=== PATIENT | female | born 1955 | race Caucasian/White ===

== ENCOUNTER 2021-07-13 10:32 | Inpatient (IN) | payer MEDICARE, SELFPAY ==
[2021-07-13 10:46] VITALS: BP 152/81; PULSE 101; RESP 18; TEMP 37; O2SAT 99; BMI 26.1
[2021-07-13 10:53] VITALS: TEMP 37.3
--- NOTE | 2021-07-13 10:58 | ED_ITS ---
HPI - Skin/Abscess/Foreign Bdy General Chief complaint: Skin/Abscess/Foreign Body Stated complaint: bug bite Time Seen by Provider: 07/13/21 10:57 Source: patient Mode of arrival: ambulatory Limitations: no limitations History of Present Illness HPI narrative: 66-year-old female presents for a rash in her left inguinal area that started 1 week ago. The she 1st noticed a bite in her left inguinal area after gardening 1 week ago. She did not see any attached ticks. The swelling and pain in her groin has become worse, and she had fevers last night up to 102F. Patient was prescribed doxycycline, which she started yesterday, she has had 3 doses, but she is vomiting up the antibiotics. She is nauseous. Patient was on doxycycline, because of questions for tick bite. Lyme labs pending. Denies other rashes, joint pain, joint swelling MD complaint: rash Onset (ago): week(s) (1) Tetanus up to date: unsure Severity scale (1-10): 4 Associated symptoms: fever, nausea, vomiting and malaise Related Data Home Medications Medication Instructions Recorded Confirmed lisinopril 20 1 tab PO DAILY 07/13/21 07/13/21 mg-hydrochlorothiazide 12.5 mg tablet Allergies Allergy/AdvReac Type Severity Reaction Status Date / Time No Known Allergies Allergy Unverified 08/16/20 19:03 [No Known Allergies*] Review of Systems Constitutional: Constitutional: Denies body ache(s), Denies chills, Reports fatigue, Reports fever(s), Denies headache(s), Reports malaise and Denies weakness Eyes: Eyes: Denies blurry vision and Denies diplopia ENT: Denies vertigo, Denies dizziness, Denies otalgia, Denies headache(s), Denies mouth pain, Denies post nasal drip, Denies sinus pain, Denies sinus pressure, Denies sore throat and Denies throat swelling Cardiovascular: Cardiovascular: Denies chest pain, Denies syncope, Denies leg edema, Denies lightheadedness, Denies Loss of Consciousness, Denies palpitations and Denies dyspnea Respiratory: Respiratory: Denies chest congestion, Denies cough and Denies dy spnea Gastrointestinal: Gastrointestinal: Denies abdominal pain, Denies hematochezia, Denies constipation, Denies diarrhea and Denies vomiting Genitourinary: Genitourinary: Reports no additional female genitourinary complaints Musculoskeletal: Musculoskeletal: Denies back pain, Denies myalgias, Denies arthralgias, Denies joint swelling, Denies muscle weakness, Denies numbness and Denies tingling Integumentary/Breasts: Skin/Breast: Reports erythema, Reports rash, Reports skin pain and Reports skin swelling Neurologic: Denies confusion, Denies vertigo, Denies dizziness, Denies syncope, Denies headache(s), Denies numbness, Denies tingling and Denies weakness Psychiatric: Psychiatric: Denies anxiety, Denies confusion and Denies depression Endocrine: Endocrine: Reports fatigue and Denies palpitations Allergic/Immunologic: Allergic/Immunologic: Denies throat swelling PMFSH Past Medical History Medical History HTN (hypertension) Social History Social History Advance Directives: No Advance Directives Information Provided: Yes Physical Exam Vital Signs: Vital Signs: Last Vital Signs Temp 98.3 F 07/13/21 12:55 Pulse 97 07/13/21 14:00 Resp 16 07/13/21 12:55 BP 137/69 07/13/21 14:00 Pulse Ox 99 07/13/21 12:55 Body Mass Index 26.1 Const: General: no acute distress, well developed, alert and awake; No confusion Nutritional Appearance: well nourished Orientation/consciousness: patient oriented x3 and No confusion Limitations: no limitations HENMT: Head: Yes normal to inspection, Yes normocephalic and Yes atraumatic Ears: hearing grossly normal bilaterally General nose exam: Normal external nose present Face and sinus: Yes normal facial exam Mouth: Normal oral and palatal mucosa present Throat: Yes posterior oropharynx normal Eyes: Conjunctivae: conjunctivae normal Pupils: Equal, round and reactive pupils present EOM: EOMs intact bilaterally Neck: Neck: Yes full ROM, Yes no lymphadenopathy and Yes supple Resp: Effort & Inspection: normal respiratory effort and able to speak in complete sentences Auscultation: clear to auscultation bilaterally, no crackles, no rales, no rhonchi and no wheezes Cardio: Rate: regular rate Rhythm: regular rhythm Heart sounds: S1 normal heart sound present and S2 normal heart sound present GI: Inspection: Yes normal to inspection Palpation (GI): Soft to palpation, nontender, no guarding and not rigid Percussion: Yes normal to percussion Auscultation: normal bowel sounds Skin: Other: Redness swelling and warmth in oval shaped left inguinal crease. The center of which is indurated, with a circular purple area with induration and blistering in the center. Rashes: rashes noted (left inguinal area) Neuro: General: patient oriented x3 and No confusion Cranial nerves: Yes Equal, round and reactive pupils present Extrem: General: Yes normal to inspection and Yes full ROM Psych: Appearance: grossly normal Affect: normal affect Attitude: cooperative Thought process: Normal thought process present Course Course Course Narrative: 66-year-old female with 1 week of worsening rash now has fevers, and cannot tolerate oral antibiotics. On exam, patient has temperature of 99.2? F, she has redness swelling and warmth in oval shaped left inguinal crease, the center of which is indurated, with a circular purple area with induration and blistering in the center. Patient was on doxycycline due to question of tick bite, Lyme labs are pending. Getting labs, closed cultures, lactate, IV fluids. Gave Rocephin and Zofran. Anticipate admission. Lactate 1.0, and no leukocytosis, patient mildly hyponatremic at a sodium of 30. Discussed with hospitalist who will admit MDM - Skin/Abscess/Foreign Bdy Lab Data Result diagrams: 07/13/21 11:55 07/13/21 11:55 Labs: Lab Results 07/13/21 07/13/21 07/13/21 Range/Units 11:54 11:55 11:55 WBC 7.3 (4.8-10.8) X10*3/uL RBC 4.89 (4.20-5.50) X10*6/uL Hgb 14.3 (12.0-16.0) g/dl Hct 42.6 (37-47) % MCV 87.1 (80-98) fL MCH 29.2 (27.0-33.0) pg MCHC 33.6 (31.0-35.0) g/dl RDW 12.2 (11.0-16.0) % Plt Count 197 (160-400) X10*3/uL MPV 10.5 (9.4-12.3) fL Immature Gran % (Auto) 0.4 (0.0-0.4) % Neut % (Auto) 85.1 H (45-73) % Lymph % (Auto) 7.5 L (20-40) % [place] % (Auto) 6.5 (2-11) % Eos % (Auto) 0.0 (0-4) % Baso % (Auto) 0.5 (0-2) % Lymph # (Auto) 0.6 L (1.2-4.9) X10*3/uL [place] # (Auto) 0.5 (0.1-1.2) X10*3/uL Eos # (Auto) 0.0 (0.0-0.4) X10*3/uL Baso # (Auto) 0.0 (0.0-0.2) X10*3/uL Abs Immat Gran (auto) 0.03 (0.00-0.03) X10*3/uL Absolute Neuts (auto) 6.2 (2.0-8.3) X10*3/uL Absolute Nucleated RBC 0.000 (0.0-0.012) X10*3/uL Nucleated RBC % (auto) 0.0 (0.0-0.2) /100WBC Sodium 130 L (135-145) mmol/L Potassium 3.6 (3.3-5.1) mmol/L Chloride 95 L (96-108) mmol/L Carbon Dioxide 25 (22-29) mmol/L Anion Gap 14 (12-20) BUN 9 (9-16) mg/dL Creatinine 0.92 (0.5-1.4) mg/dL Estim Creat Clear Calc 61.6 Estimated GFR > 60 Random Glucose 96 (60-115) mg/dL Lactic Acid (0.5-2.0) mmol/L Calcium 8.7 (8.4-10.2) mg/dL Magnesium 1.7 (1.6-2.6) mg/dL Total Bilirubin 0.4 (0.0-1.0) mg/dL AST 34 H (5-31) U/L ALT 36 H (0-31) U/L Alkaline Phosphatase 71 (39-117) U/L Total Protein 6.3 L (6.5-8.0) g/dL Albumin 3.9 (3.5-5.0) g/dL COVID-19 (SHRADDHA) Negative (Negative) COVID-19 Clin Com See Note 07/13/21 Range/Units 11:55 WBC (4.8-10.8) X10*3/uL RBC (4.20-5.50) X10*6/uL Hgb (12.0-16.0) g/dl Hct (37-47) % MCV (80-98) fL MCH (27.0-33.0) pg MCHC (31.0-35.0) g/dl RDW (11.0-16.0) % Plt Count (160-400) X10*3/uL MPV (9.4-12.3) fL Immature Gran % (Auto) (0.0-0.4) % Neut % (Auto) (45-73) % Lymph % (Auto) (20-40) % [place] % (Auto) (2-11) % Eos % (Auto) (0-4) % Baso % (Auto) (0-2) % Lymph # (Auto) (1.2-4.9) X10*3/uL [place] # (Auto) (0.1-1.2) X10*3/uL Eos # (Auto) (0.0-0.4) X10*3/uL Baso # (Auto) (0.0-0.2) X10*3/uL Abs Immat Gran (auto) (0.00-0.03) X10*3/uL Absolute Neuts (auto) (2.0-8.3) X10*3/uL Absolute Nucleated RBC (0.0-0.012) X10*3/uL Nucleated RBC % (auto) (0.0-0.2) /100WBC Sodium (135-145) mmol/L Potassium (3.3-5.1) mmol/L Chloride (96-108) mmol/L Carbon Dioxide (22-29) mmol/L Anion Gap (12-20) BUN (9-16) mg/dL Creatinine (0.5-1.4) mg/dL Estim Creat Clear Calc Estimated GFR Random Glucose (60-115) mg/dL Lactic Acid 1.0 (0.5-2.0) mmol/L Calcium (8.4-10.2) mg/dL Magnesium (1.6-2.6) mg/dL Total Bilirubin (0.0-1.0) mg/dL AST (5-31) U/L ALT (0-31) U/L Alkaline Phosphatase (39-117) U/L Total Protein (6.5-8.0) g/dL Albumin (3.5-5.0) g/dL COVID-19 (SHRADDHA) (Negative) COVID-19 Clin Com Discharge Plan Discharge Clinical Impression: Cellulitis Qualifiers: Site of cellulitis: other site Qualified Code(s): L03.818 - Cellulitis of other sites Patient Disposition: Admitted As Inpatient
[2021-07-13] MEDS: ondansetron HCL 4 MG/2 ML VIAL IVPUSH (11:36)
[2021-07-13 12:00] LABS: MANUAL DIFF FLAG NO
[2021-07-13 12:02] LABS: Basophils Percent Auto 0.5 % (0-2); Hematocrit 42.6 % (37-47); Hemoglobin 14.3 g/dl (12.0-16.0); Imm Gran Abs Auto 0.03 X10*3/uL (0.00-0.03); Imm Gran Pct Auto 0.4 % (0.0-0.4); Lymphocytes Absolute Auto 0.6 X10*3/uL (1.2-4.9); Lymphocytes Percent Auto 7.5 % (20-40); Mean Corpuscular HGB Conc 33.6 g/dl (31.0-35.0); Mean Corpuscular Hemoglobin 29.2 pg (27.0-33.0); Mean Corpuscular Volume 87.1 fL (80-98); Mean Platelet Volume 10.5 fL (9.4-12.3); Monocytes Absolute Auto 0.5 X10*3/uL (0.1-1.2); Monocytes Percent Auto 6.5 % (2-11); Neutrophils Absolute Auto 6.2 X10*3/uL (2.0-8.3); Neutrophils Percent Auto 85.1 % (45-73); Platelet Count 197 X10*3/uL (160-400); Red Blood Count 4.89 X10*6/uL (4.20-5.50); Red Cell Distribution Width 12.2 % (11.0-16.0); White Blood Count 7.3 X10*3/uL (4.8-10.8)
[2021-07-13] MEDS: cefTRIAXone sodium 1 GM in 0.9 % Sodium Chloride 50 ML IV (12:03)
[2021-07-13 12:16] LABS: COVID-19 Test Negative (Negative); IDNOW Serial# 9DD0AD1C
[2021-07-13 12:24] LABS: Alanine Aminotransferase 36 U/L (0-31); Albumin Level 3.9 g/dL (3.5-5.0); Alkaline Phosphatase 71 U/L (39-117); Anion Gap 14 (12-20); Aspartate Amino Transferase 34 U/L (5-31); Bilirubin Total 0.4 mg/dL (0.0-1.0); Blood Urea Nitrogen 9 mg/dL (9-16); Calcium 8.7 mg/dL (8.4-10.2); Carbon Dioxide 25 mmol/L (22-29); Chloride 95 mmol/L (96-108); Creatinine Clr Calc Pharmacy 61.6; Estimated Glomerular Filt Rate > 60; Glucose Random 96 mg/dL (60-115); Magnesium 1.7 mg/dL (1.6-2.6); Potassium 3.6 mmol/L (3.3-5.1); Sodium 130 mmol/L (135-145); Total Protein 6.3 g/dL (6.5-8.0)
[2021-07-13 12:55] VITALS: BP 172/86; PULSE 101; RESP 16; TEMP 36.8; O2SAT 99
--- NOTE | 2021-07-13 13:45 | P.HPHOSP_ITS ---
History of Present Illness Date of Service: 07/13/21 Chief Complaint: Cellulitis, failed outpatient antibiotics A 66 years old lady with PMH of hypertension home noticed skin rash in her inguinal area few days ago and started oral antibiotic resulting in vomiting and worsening of the cellulitis. The patient reports having multiple tick bites more than 1 week ago after gardening it became only worsen her groin area and she went to see her primary care who prescribed her doxycycline. She tolerated the 1st 2 doses but after the 3rd when she started vomiting as the cellulitis area expanded. She reporting fever of 102 with chills. Denies any change in her bowel habit, shortness of breath, or urinary symptoms. Admitted for further evaluation and treatment. Review of Systems Review of Systems: Reporting fever and chills with increased weakness No chest pain, palpitation No shortness of breath or coughing No abdominal pain, nausea or vomiting No urinary symptoms Inguinal rash PMFSH Medical History HTN (hypertension) Social History Advance Directives: No Advance Directives Information Provided: Yes Meds Allergies Allergy/AdvReac Type Severity Reaction Status Date / Time No Known Allergies Allergy Unverified 08/16/20 19:03 [No Known Allergies*] Active Medications: Current Medications Generic Name Dose Route Start Last Admin Trade Name Freq PRN Reason Stop Dose Admin Acetaminophen 650 mg 07/13/21 13:40 Acetaminophen 325 Mg Tablet PO Q6H PRN Pain, Mild (Pain Scale 1-3) Doxycycline Hyclate 100 mg/ 250 mls @ 166.67 mls/hr 07/13/21 22:00 Sodium Chloride IV Q12H [facility] Doxycycline Hyclate 100 mg/ 250 mls @ 166.67 mls/hr 07/13/21 13:44 Sodium Chloride IV 07/13/21 15:13 ONCE ONE Lisinopril 20 mg 07/13/21 13:40 Lisinopril 20 Mg Tablet PO DAILY [facility] Protocol Ondansetron HCl 4 mg 07/13/21 13:40 Ondansetron Hcl 4 Mg/2 Ml Vial IVPUSH Q8H PRN Nausea and Vomiting Pharmacy Consult 1 each 07/13/21 13:10 Consult Rx Perform Med Rec MISCELLANE ONCE PRN Consult order Rivaroxaban 10 mg 07/14/21 09:00 Rivaroxaban 10 Mg Tablet PO DAILY [facility] Sodium Chloride 3 ml 07/13/21 16:00 0.9 % Sodium Chloride Flush 3 Ml Syringe IVFLUSH QSHIFT [facility] Home Medications Medication Instructions Recorded Confirmed Last Taken Type lisinopril 20 1 tab PO DAILY 07/13/21 07/13/21 07/12/21 History mg-hydrochlorothiazide 12.5 mg tablet Physical Exam Vital Signs and Narrative: Vital Signs: Last Vital Signs Temp 98.3 F 07/13/21 12:55 Pulse 101 H 07/13/21 12:55 Resp 16 07/13/21 12:55 BP 172/86 H 07/13/21 12:55 Pulse Ox 99 07/13/21 12:55 Body Mass Index 26.1 Const: Other: Constitutional : Alert, oriented, not in distress Neck : Normal inspection, Supple Cardiovascular : RRR, S1 S2, no lower extremity edema Respiratory : Good bilateral air entry, no crackles, wheezes or rhonchi Gastrointestinal: soft, lax, Normal bowel sounds, Non tender Skin : Warm, Dry, left inguinal rash with mild tenderness, line drawn around the area Neurological : Alert & oriented x3, No focal deficit Results Labs CBC and Chem 7: 07/13/21 11:55 07/13/21 11:55 Labs: Laboratory Results - last 24 hr 07/13/21 07/13/21 07/13/21 11:54 11:55 11:55 MCV 87.1 MCH 29.2 MCHC 33.6 RDW 12.2 Plt Count 197 MPV 10.5 Immature Gran % (Auto) 0.4 Neut % (Auto) 85.1 H Lymph % (Auto) 7.5 L [place] % (Auto) 6.5 Eos % (Auto) 0.0 Baso % (Auto) 0.5 Lymph # (Auto) 0.6 L [place] # (Auto) 0.5 Eos # (Auto) 0.0 Baso # (Auto) 0.0 Abs Immat Gran (auto) 0.03 Absolute Neuts (auto) 6.2 Absolute Nucleated RBC 0.000 Nucleated RBC % (auto) 0.0 Anion Gap 14 Estim Creat Clear Calc 61.6 Estimated GFR > 60 Random Glucose 96 Lactic Acid Calcium 8.7 Magnesium 1.7 Total Bilirubin 0.4 AST 34 H ALT 36 H Alkaline Phosphatase 71 Total Protein 6.3 L Albumin 3.9 COVID-19 (SHRADDHA) Negative COVID-19 Clin Com See Note 07/13/21 11:55 MCV MCH MCHC RDW Plt Count MPV Immature Gran % (Auto) Neut % (Auto) Lymph % (Auto) [place] % (Auto) Eos % (Auto) Baso % (Auto) Lymph # (Auto) [place] # (Auto) Eos # (Auto) Baso # (Auto) Abs Immat Gran (auto) Absolute Neuts (auto) Absolute Nucleated RBC Nucleated RBC % (auto) Anion Gap Estim Creat Clear Calc Estimated GFR Random Glucose Lactic Acid 1.0 Calcium Magnesium Total Bilirubin AST ALT Alkaline Phosphatase Total Protein Albumin COVID-19 (SHRADDHA) COVID-19 Clin Com Assessment and Plan (1) Cellulitis: Qualifiers: Site of cellulitis: other site Qualified Code(s): L03.818 - Cellulitis of other sites Status: Acute (2) Nausea and vomiting: Status: Acute A 66 years old lady with PMH of hypertension home noticed skin rash in her inguinal area few days ago and started oral antibiotic resulting in vomiting and worsening of the cellulitis. Cellulitis Could not tolerate oral antibiotics as outpatient Cellulitis area marked Cultures sent Lyme disease antibodies sent Start IV doxycycline To get ID evaluation Nausea and vomiting Secondary to oral antibiotics Zofran as needed Hypertension Continue HCT continue lisinopril DVT PPX Xarelto Quality Stroke Does the patient have a stroke diagnosis?: No VTE Prior VTE?: No VTE Risk Level:: Medical - moderate - high VTE Device Contraindication: Treatment Not Indicated VTE Drug Contraindication: N/A - Med Ordered
[2021-07-13 14:00] VITALS: BP 137/69; PULSE 97
[2021-07-13] MEDS: Doxycycline Hyclate 100 MG in 0.9 % Sodium Chloride 250 ML 166.67 MG IV ×2 (14:01→21:31)
[2021-07-13] MEDS: lisinopriL 20 MG TABLET PO (14:02)
[2021-07-13] MEDS: Acetaminophen 325 MG TABLET 650 MG PO ×2 (14:07→23:06)
--- NOTE | 2021-07-13 14:40 | W.PM.IDCN ---
History of Present Illness Data of Consult Service Date: 07/13/21 Requesting physician: Gera Joseph Primary Care Provider: Italo Doe MD HPI Reason for consult: rash,vomiting She presents to hospital with left hip redness and rash She was weeding her husbands garden last week. She felt left area near hip reddened and not itchy. The area did hurt however. She noticed nausea for two days and saw PCP at [facility] yesterday She was given Doxycycline po and took two doses and had nausea and vomiting and couldnt keep anything down and came to ER here Review of Systems Review of Systems: Yes all other systems are reviewed and are negative ON LICENSE OF [facility] Past Medical History Medical History HTN (hypertension) Social History Social History Household Members: Spouse Housing: House Do you presently have visiting nurse or other home services: No Patient Tobacco Use Status: Never used Tobacco e-Cigarette/Vaping Use: Never Used Use of substances other than those prescribed or required for medical reasons: No Currently Displaying Signs/Symptoms of Drug Intoxication Withdrawal: No Have you been hit, kicked, punched, or otherwise hurt by someone within the past year? If so, by whom?: No Do you feel safe in your current relationship?: Yes Is there a partner from a previous relationship who is making you feel unsafe now?: No Are you made to feel afraid or neglected: No Advance Directives: No Advance Directives Information Provided: Yes Do you have thoughts of harming others: None Do you have a plan to hurt others: No Plan Recently lost weight without trying: No How much weight loss: Not applicable Eating poorly because of decreased appetite: No Nutrition screen score: 0 Nutrition Risks: No Nutritional Risk Patient : No : No Poor oral hygiene: No service: No Current occupational status: employed Meds Allergies Allergy/AdvReac Type Severity Reaction Status Date / Time No Known Allergies Allergy Unverified 08/16/20 19:03 [No Known Allergies*] Active Medications: Current Medications Generic Name Dose Route Start Last Admin Trade Name Freq PRN Reason Stop Dose Admin Acetaminophen 650 mg 07/13/21 13:40 07/13/21 14:07 Acetaminophen 325 Mg Tablet PO 650 mg Q6H PRN Administration Pain, Mild (Pain Scale 1-3) Doxycycline Hyclate 100 mg/ 250 mls @ 166.67 mls/hr 07/13/21 22:00 Sodium Chloride IV Q12H [facility] Doxycycline Hyclate 100 mg/ 250 mls @ 166.67 mls/hr 07/13/21 13:44 07/13/21 14:01 Sodium Chloride IV 07/13/21 15:13 166.67 mls/hr ONCE ONE Administration Lisinopril 20 mg 07/13/21 13:40 07/13/21 14:02 Lisinopril 20 Mg Tablet PO 20 mg DAILY [facility] Administration Protocol Ondansetron HCl 4 mg 07/13/21 13:40 Ondansetron Hcl 4 Mg/2 Ml Vial IVPUSH Q8H PRN Nausea and Vomiting Pharmacy Consult 1 each 07/13/21 13:10 Consult Rx Perform Med Rec MISCELLANE ONCE PRN Consult order Rivaroxaban 10 mg 07/14/21 09:00 Rivaroxaban 10 Mg Tablet PO DAILY [facility] Sodium Chloride 3 ml 07/13/21 16:00 0.9 % Sodium Chloride Flush 3 Ml Syringe IVFLUSH QSHIFT [facility] Home Medications Medication Instructions Recorded Confirmed Last Taken Type lisinopril 20 1 tab PO DAILY 07/13/21 07/13/21 07/12/21 History mg-hydrochlorothiazide 12.5 mg tablet Physical Exam Vital Signs: Vital Signs: Last Vital Signs Temp 98.3 F 07/13/21 12:55 Pulse 97 07/13/21 14:00 Resp 16 07/13/21 12:55 BP 137/69 07/13/21 14:00 Pulse Ox 99 07/13/21 12:55 Body Mass Index 26.1 Const: General: cooperative Orientation/consciousness: patient oriented x3 HENMT: Head: Yes normal to inspection Mouth: Normal oral and palatal mucosa present Eyes: General: appearance normal, both eyes and all related structures Resp: Effort & Inspection: normal respiratory effort Cardio: Rate: regular rate Rhythm: regular rhythm GI: Palpation (GI): Soft to palpation and nontender Skin: Other: left groin area 8 x 10 cm erythema with central blistering Neuro: General: patient oriented x3 Results Labs CBC & Chem 7: 07/14/21 05:54 07/15/21 06:10 Labs: Short CBC 07/13/21 Range/Units 11:55 WBC 7.3 (4.8-10.8) X10*3/uL Hgb 14.3 (12.0-16.0) g/dl Hct 42.6 (37-47) % Plt Count 197 (160-400) X10*3/uL BMP 07/13/21 11:55 Sodium 130 L Potassium 3.6 Chloride 95 L Carbon Dioxide 25 BUN 9 Creatinine 0.92 Calcium 8.7 Liver Function 07/13/21 Range/Units 11:55 Total Bilirubin 0.4 (0.0-1.0) mg/dL AST 34 H (5-31) U/L ALT 36 H (0-31) U/L Alkaline Phosphatase 71 (39-117) U/L Albumin 3.9 (3.5-5.0) g/dL Assessment and Plan (1) Cellulitis: Qualifiers: Site of cellulitis: other site Qualified Code(s): L03.818 - Cellulitis of other sites Status: Resolved This appears to be Lyme disease rash Less likely is early shingles She has slight hepatitis ,possible anaplasma also There is no anemia so less likely babesiosis (2) Nausea and vomiting: Status: Resolved Would give IV Doxycycline 100 mg IV every 12 hours Continue to hydrate Would check anaplasma,babesia and Lyme serologies although may be early to be positive She will hopefully develop ability to take po as 10 d po Doxycycline will be best Await further development of rash
[2021-07-13 15:49] VITALS: BP 128/77; PULSE 90; RESP 16; TEMP 36.8; O2SAT 97
[2021-07-13] MEDS: 0.9 % Sodium Chloride Flush 3 ML SYRINGE IVFLUSH ×2 (21:32→23:06)
[2021-07-14] VITALS: BP 112/62; PULSE 74; RESP 16; TEMP 36.8; O2SAT 98
[2021-07-14 06:46] LABS: Hematocrit 40.8 % (37-47); Hemoglobin 13.4 g/dl (12.0-16.0); Mean Corpuscular HGB Conc 32.8 g/dl (31.0-35.0); Mean Corpuscular Hemoglobin 28.9 pg (27.0-33.0); Mean Corpuscular Volume 87.9 fL (80-98); Mean Platelet Volume 11.5 fL (9.4-12.3); Platelet Count 204 X10*3/uL (160-400); Red Blood Count 4.64 X10*6/uL (4.20-5.50); Red Cell Distribution Width 12.5 % (11.0-16.0); White Blood Count 5.5 X10*3/uL (4.8-10.8)
[2021-07-14 06:49] LABS: Anion Gap 12 (12-20); Blood Urea Nitrogen 7 mg/dL (9-16); Calcium 8.5 mg/dL (8.4-10.2); Carbon Dioxide 22 mmol/L (22-29); Chloride 108 mmol/L (96-108); Creatinine Clr Calc Pharmacy 71.8; Estimated Glomerular Filt Rate > 60; Glucose Random 102 mg/dL (60-115); Sodium 138 mmol/L (135-145)
[2021-07-14 07:11] VITALS: BP 127/75; PULSE 72; RESP 20; TEMP 36.2; O2SAT 99
[2021-07-14 08:18] VITALS: BP 127/75; PULSE 72
[2021-07-14] MEDS: lisinopriL 20 MG TABLET PO (08:18)
[2021-07-14] MEDS: 0.9 % Sodium Chloride Flush 3 ML SYRINGE IVFLUSH ×3 (08:19→21:05)
[2021-07-14] MEDS: Rivaroxaban 10 MG TABLET PO (08:19)
[2021-07-14] MEDS: Doxycycline Hyclate 100 MG in 0.9 % Sodium Chloride 250 ML 166.67 MG IV (09:35)
--- NOTE | 2021-07-14 11:57 | P.PNIM_ITS ---
Subjective Subjective Date of Service: 07/14/21 Interval History: the patient was seen and evaluated this morning Laying in bed, feels comfortable Erythema decreasing along with the pain but start to produce clear liquids Denies any fever, chills or shortness of breath No reported other overnight events. Review of Systems No overnight fever and chills Feels little stronger No chest pain, palpitation No shortness of breath or coughing No abdominal pain, nausea or vomiting No urinary symptoms Inguinal rash improving Physical Exam Vital Signs: Vital Signs: Last Vital Signs Temp 97.1 F 07/14/21 07:11 Pulse 72 07/14/21 08:18 Resp 20 07/14/21 07:11 BP 127/75 07/14/21 08:18 Pulse Ox 99 07/14/21 07:11 Body Mass Index 26.1 Const: Other: Constitutional : Alert, oriented, not in distress Neck : Normal inspection, Supple Cardiovascular : RRR, S1 S2, no lower extremity edema Respiratory : Good bilateral air entry, no crackles, wheezes or rhonchi Gastrointestinal: soft, lax, Normal bowel sounds, Non tender Skin : Warm, Dry, left inguinal rash less erythema within line drawn around the area, less tenderness Neurological : Alert & oriented x3, No focal deficit Objective Data Current Medications Generic Name Dose Route Start Last Admin Trade Name Freq PRN Reason Stop Dose Admin Acetaminophen 650 mg 07/13/21 13:40 07/13/21 23:06 Acetaminophen 325 Mg Tablet PO 650 mg Q6H PRN Administration Pain, Mild (Pain Scale 1-3) Doxycycline Hyclate 100 mg/ 250 mls @ 166.67 mls/hr 07/13/21 22:00 07/14/21 11:11 Sodium Chloride IV Infused Q12H [facility] Infusion Lisinopril 20 mg 07/13/21 13:40 07/14/21 08:18 Lisinopril 20 Mg Tablet PO 20 mg DAILY [facility] Administration Protocol Ondansetron HCl 4 mg 07/13/21 13:40 Ondansetron Hcl 4 Mg/2 Ml Vial IVPUSH Q8H PRN Nausea and Vomiting Pharmacy Consult 1 each 07/13/21 13:10 Consult Rx Perform Med Rec MISCELLANE ONCE PRN Consult order Rivaroxaban 10 mg 07/14/21 09:00 07/14/21 08:19 Rivaroxaban 10 Mg Tablet PO 10 mg DAILY [facility] Administration Sodium Chloride 3 ml 07/13/21 16:00 07/14/21 08:19 0.9 % Sodium Chloride Flush 3 Ml Syringe IVFLUSH 3 ml QSHIFT [facility] Administration Labs CBC & Chem 7: 07/14/21 05:54 07/14/21 05:54 Labs: Laboratory Results - last 24 hr 07/13/21 07/13/21 07/13/21 11:54 11:55 11:55 MCV 87.1 MCH 29.2 MCHC 33.6 RDW 12.2 Plt Count 197 MPV 10.5 Immature Gran % (Auto) 0.4 Neut % (Auto) 85.1 H Lymph % (Auto) 7.5 L [place] % (Auto) 6.5 Eos % (Auto) 0.0 Baso % (Auto) 0.5 Lymph # (Auto) 0.6 L [place] # (Auto) 0.5 Eos # (Auto) 0.0 Baso # (Auto) 0.0 Abs Immat Gran (auto) 0.03 Absolute Neuts (auto) 6.2 Absolute Nucleated RBC 0.000 Nucleated RBC % (auto) 0.0 Anion Gap 14 Estim Creat Clear Calc 61.6 Estimated GFR > 60 Random Glucose 96 Lactic Acid Calcium 8.7 Magnesium 1.7 Total Bilirubin 0.4 AST 34 H ALT 36 H Alkaline Phosphatase 71 Total Protein 6.3 L Albumin 3.9 COVID-19 (SHRADDHA) Negative COVID-19 Clin Com See Note 07/13/21 07/14/21 07/14/21 11:55 05:54 05:54 MCV 87.9 MCH 28.9 MCHC 32.8 RDW 12.5 Plt Count 204 MPV 11.5 Immature Gran % (Auto) Neut % (Auto) Lymph % (Auto) [place] % (Auto) Eos % (Auto) Baso % (Auto) Lymph # (Auto) [place] # (Auto) Eos # (Auto) Baso # (Auto) Abs Immat Gran (auto) Absolute Neuts (auto) Absolute Nucleated RBC 0.000 Nucleated RBC % (auto) 0.0 Anion Gap 12 Estim Creat Clear Calc 71.8 Estimated GFR > 60 Random Glucose 102 Lactic Acid 1.0 Calcium 8.5 Magnesium Total Bilirubin AST ALT Alkaline Phosphatase Total Protein Albumin COVID-19 (SHRADDHA) COVID-19 Clin Com Assessment and Plan (1) Nausea and vomiting: Status: Acute (2) Cellulitis: Status: Acute Assessment and Plan: A 66 years old lady with PMH of hypertension home noticed skin rash in her inguinal area few days ago and started oral antibiotic resulting in vomiting and worsening of the cellulitis. Cellulitis Could not tolerate oral antibiotics as outpatient Cellulitis area marked and improving Cultures pending Lyme disease antibodies pending among others Continue IV doxycycline for today, to start p.o. tomorrow and monitor her Appreciate ID evaluation Nausea and vomiting Secondary to oral antibiotics Zofran as needed Hypertension Continue HCT continue lisinopril DVT PPX Xarelto Quality Stroke Does the patient have a stroke diagnosis?: No VTE Prior VTE?: No VTE Risk Level:: Medical - moderate - high VTE Device Contraindication: Treatment Not Indicated VTE Drug Contraindication: N/A - Med Ordered
[2021-07-14 15:10] VITALS: BP 141/84; PULSE 84; RESP 17; TEMP 36.4; O2SAT 92
--- NOTE | 2021-07-14 15:13 | MHC.CM.PN ---
CM MET WITH PT WHO REPORTS SHE LIVES WITH HER HOWEVER HE IS CURRENTLY IN [place]. 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 PT REPORTS SHE WAS SEEING DR HESTER AT [facility] BUT WAS IN THE PROCESS OF CHANGING TO ONE OF THE PA'S THERE. PT COMPLETED A HCP TODAY NAMING HER , WISAM ([phone]) AND HER DAUGHTER IN LAW, VELASQUEZ ([phone]), HER PRIMARY AND ALTERNATE AGENTS RESPECTIVELY. IMM DELIVERED CURRENT DC PLAN IS HOME WITH NO SERVICES. PT WILL SELF ARRANGE TRANSPORT
[2021-07-14] MEDS: Doxycycline Hyclate 100 MG in 0.9 % Sodium Chloride 250 ML 166 MG IV (20:59)
[2021-07-14] MEDS: Acetaminophen 325 MG TABLET 650 MG PO (21:06)
[2021-07-14 23:14] VITALS: BP 120/66; PULSE 75; RESP 18; TEMP 35.7; O2SAT 98
[2021-07-15 06:52] LABS: Anion Gap 14 (12-20); Blood Urea Nitrogen 12 mg/dL (9-16); Calcium 8.6 mg/dL (8.4-10.2); Carbon Dioxide 23 mmol/L (22-29); Chloride 105 mmol/L (96-108); Creatinine Clr Calc Pharmacy 67.5; Estimated Glomerular Filt Rate > 60; Glucose Random 151 mg/dL (60-115); Potassium 3.8 mmol/L (3.3-5.1); Sodium 138 mmol/L (135-145)
[2021-07-15 08:00] VITALS: BP 153/90; PULSE 78; RESP 17; TEMP 36.1; O2SAT 100
[2021-07-15] MEDS: lisinopriL 20 MG TABLET PO (08:21)
[2021-07-15] MEDS: Rivaroxaban 10 MG TABLET PO (08:21)
[2021-07-15] MEDS: 0.9 % Sodium Chloride Flush 3 ML SYRINGE IVFLUSH (08:23)
--- NOTE | 2021-07-15 11:26 | PM.DS ---
DS: Providers Provider Date of Service: 07/15/21 Date of admission: 07/13/21 13:40 Primary care physician: Italo Doe MD Consults: 07/13/21 13:51 Consult to Infectious Diseases Routine Consulting Provider: Ade Cuenca Reason for consultation: Cellulitis, possible Lyme disease DS: Diagnosis Discharge Diagnosis (1) Nausea and vomiting: Status: Acute (2) Cellulitis: Status: Acute DS: Medications Discharge Medications Home Medications: Home Medications Medication Instructions Recorded Confirmed lisinopril 20 1 tab PO DAILY 07/13/21 07/13/21 mg-hydrochlorothiazide 12.5 mg tablet Previous Rx's Medication Instructions Recorded doxycycline monohydrate 100 mg 100 mg PO BID #23 cap 07/15/21 capsule ondansetron 4 mg disintegrating 4 mg PO Q8H PRN #20 tab 07/15/21 tablet DS: Summary Hospital Course Hospital Course: Admission note HPI A 66 years old lady with PMH of hypertension home noticed skin rash in her inguinal area few days ago and started oral antibiotic resulting in vomiting and worsening of the cellulitis. The patient reports having multiple tick bites more than 1 week ago after gardening it became only worsen her groin area and she went to see her primary care who prescribed her doxycycline.? She tolerated the 1st 2 doses but after the 3rd when she started vomiting as the cellulitis area expanded.? She reporting fever of 102 with chills.? Denies any change in her bowel habit, shortness of breath, or urinary symptoms. Admitted for further evaluation and treatment. Hospital course The patient was admitted to the hospital for reported nausea and vomiting after starting antibiotic for skin rash. Rash was evaluated suspicious for take borne disease and the patient was admitted to the hospital for intractable nausea and vomiting. Treated with IV doxycycline with good response as the rash and erythema decreased significantly. Evaluated by infectious disease who send serologies for most common tick bite diseases. Patient to be discharged home on oral doxycycline and to follow-up with PCP. To finish total of 14 days of doxycycline. Time Spent with Patient Time attestation: Total time spent providing and/or coordinating discharge services: Discharge coordination time: Greater than 30 minutes Quality: Stroke Does the patient have a stroke diagnosis?: No Physical Exam Vital Signs: Vital Signs: Last Vital Signs Temp 97.0 F 07/15/21 08:00 Pulse 78 07/15/21 08:00 Resp 17 07/15/21 08:00 BP 153/90 H 07/15/21 08:00 Pulse Ox 100 07/15/21 08:00 Body Mass Index 26.1 Const: Other: Constitutional : Alert, oriented, not in distress Neck : Normal inspection, Supple Cardiovascular : RRR, S1 S2, no lower extremity edema Respiratory : Good bilateral air entry, no crackles, wheezes or rhonchi Gastrointestinal: soft, lax, Normal bowel sounds, Non tender Skin : Warm, Dry, left inguinal rash less erythema within line drawn around the area, no more tenderness Neurological : Alert & oriented x3, No focal deficit DS: Data Data Completed and Pending Labs on day of discharge: Laboratory Results - last 24 hr 07/15/21 06:10 Sodium 138 Potassium 3.8 Chloride 105 Carbon Dioxide 23 Anion Gap 14 BUN 12 D Creatinine 0.84 Estim Creat Clear Calc 67.5 Estimated GFR > 60 Random Glucose 151 H D Calcium 8.6 Preliminary micro results at discharge 07/13/21 11:55 Blood Culture - Preliminary Blood - Venous No growth after 24 hours. Discharge Plan Discharge Patient Disposition: Home, Self-Care Discharge Diagnosis: Cellulitis Referrals: Italo Doe MD [Primary Care Provider] - 1 Week Discharge Medications: New doxycycline monohydrate 100 mg capsule 100 mg PO BID Qty: 23 RF: 0 ondansetron 4 mg tablet,disintegrating 4 mg PO Q8H PRN (Reason: nausea and vomiting) Qty: 20 RF: 0 Continued lisinopril-hydrochlorothiazide 20-12.5 mg tablet 1 tab PO DAILY RF: 0 Discharge Orders: Discharge Order (Routine); Ordered 07/15/21 Ordered By: Gera Joseph Diet: advance to usual diet Activity on Discharge: As tolerated Stand Alone Forms: Patient Portal Discharge page Care Plan Goals: Read below Health Concerns: Read below Plan of Treatment: you were admitted to the hospital for evaluation of rash. Treated as possible tick bite infection with IV doxycycline as you were evaluated by infectious disease specialist. Assessment: Continue on doxycycline to finish total of 2 weeks of antibiotic Use Zofran as needed for nausea Follow-up with PCP for the serology results of microbes
--- NOTE | 2021-07-15 11:47 | MHC.CM.PN ---
PT DISCHARGING HOME SELF-CARE, PT TO ARRANGE TRANSPORT
[2021-07-15] MEDS: Ondansetron ODT 4 MG TAB.RAPDIS TRANSLINGU (11:49)
--- NOTE | 2021-07-15 13:17 | PC.NURSE ---
Skin/Wound assessment completed today. Patient was bitten by a tick, large cellulitis occurred from that bite. Blister present with blue underneath and red around edges. Patient was on IV antibiotics, she is discharged today with PO antibiotics. No other skin issues noted.
[2021-07-15 17:06] LABS: Lyme Abs Screen <0.90 index
[2021-07-22 05:11] LABS: Babesia IgG <1:64 titer (<1:64); Babesia IgM <1:20 titer (<1:20)
[2021-07-23 04:11] LABS: A. Phagocytophilum Ab IgG <1:64 (<1:64); A. Phagocytophilum Ab IgM <1:20 (<1:20); E. Chaffeensis Ab IgG <1:64 (<1:64); E. Chaffeensis Ab IgM <1:20 (<1:20)
== END 2021-07-15 14:11 | disposition home or self-care (01) | DRG 603 ==
LOC: HO.ED 13:09 → HO.EDOVER 13:53 → HO.S3 14:30
PROVIDERS: Internal Medicine; Physician Assistant; Admitting Provider Student in an Organized Health Care Education/Training Program; Emergency Provider Emergency Medicine; PCP Internal Medicine; Visit Provider Student in an Organized Health Care Education/Training Program
DX: L03.314 Cellulitis of groin (principal); R11.2 Nausea with vomiting, unspecified; T36.95XA Adverse effect of unspecified systemic antibiotic, initial encounter; Y92.9 Unspecified place or not applicable; Z20.822 Contact with and (suspected) exposure to COVID-19; Z79.899 Other long term (current) drug therapy
CPT/HCPCS: 36415; 80048; 80053; 83605; 83735; 85025; 85027; 86617; 86618; 86666; 86753; 87040; 87147; 87205; 87635; 96361; 96374; 96375; 99284; 99285; J0696; J2405

== ENCOUNTER 2021-07-30 10:27 | Outpatient (REF) | payer MEDICARE, SELFPAY ==
--- NOTE | ~2021-07-30 | MM_ITS ---
EXAMINATION: MM SCREENING DIGITAL BREAST TOMOSYNTHESIS, BILATERAL CLINICAL INFORMATION: Screening. Asymptomatic. The lifetime risk of breast cancer based on the Tyrer-Cuzick Model is 13%. COMPARISON: Mammography: 05/26/2020, 03/16/2019, 01/06/2018 TECHNIQUE: Digital breast tomosynthesis is performed in both the craniocaudal and mediolateral oblique views along with computer-aided detection (CAD). Synthesized 2D images are generated from the tomosynthesis. FINDINGS: There are scattered areas of fibroglandular density (ACR BI-RADS breast composition Category b). There are no significant masses, abnormal calcifications, or other abnormalities. Parenchymal pattern is similar to prior studies. The axilla and skin contours are unremarkable. MM/MM tomosynthesis screening BI IMPRESSION: No mammographic evidence of malignancy. ASSESSMENT: BI-RADS 1: Negative RECOMMENDATION: Routine annual mammography screening. This patient's information was entered into a reminder system with a target due date for their next mammogram.
== END 2021-07-30 10:28 | disposition home or self-care (01) ==
LOC: HO.MAMMO 10:27
PROVIDERS: PCP Internal Medicine; Visit Provider Internal Medicine
DX: Z12.31 Encounter for screening mammogram for malignant neoplasm of breast (principal)
CPT/HCPCS: 77063; 77067

== ENCOUNTER 2022-08-05 09:55 | Outpatient (REF) | payer MEDICARE, SELFPAY ==
--- NOTE | ~2022-08-05 | MM_ITS ---
EXAMINATION: MM SCREENING DIGITAL BREAST TOMOSYNTHESIS, BILATERAL CLINICAL INFORMATION: Screening. Asymptomatic. The lifetime risk of breast cancer based on the Tyrer-Cuzick Model is 13%. COMPARISON: Mammography: 07/30/2021, 05/26/2020, 03/16/2019 TECHNIQUE: Digital breast tomosynthesis is performed in both the craniocaudal and mediolateral oblique views along with computer-aided detection (CAD). Synthesized 2D images are generated from the tomosynthesis. Additional left MLO view is provided. FINDINGS: There are scattered areas of fibroglandular density (ACR BI-RADS breast composition Category b). There are no significant masses, abnormal calcifications, or other abnormalities. Parenchymal pattern is similar to prior studies. There is no developing density or architectural abnormality. The axilla and skin contours are unremarkable. No significant changes. MM/MM tomosynthesis screening BI IMPRESSION: No mammographic evidence of malignancy. ASSESSMENT: BI-RADS 1: Negative RECOMMENDATION: Routine annual mammography screening. This patient's information was entered into a reminder system with a target due date for their next mammogram.
== END 2022-08-05 09:56 | disposition home or self-care (01) ==
LOC: HO.MAMMO 09:55
PROVIDERS: PCP Internal Medicine; Visit Provider Internal Medicine
DX: Z12.31 Encounter for screening mammogram for malignant neoplasm of breast (principal)
CPT/HCPCS: 77063; 77067

== ENCOUNTER 2023-06-10 14:58 | Outpatient (AMB) | payer MEDICARE, SELFPAY ==
--- NOTE | 2023-06-10 15:10 | A.OFFPC_ITS ---
Vital Signs 06/10/23 15:11 Height 5 ft 6 in Weight 173 lb 3 oz BMI 28.0 BP 122/76 Blood Pressure Location Lt brachial Pulse 75 Pulse Source Pulse Oximeter Pulse Oximetry (%) 99 Oxygen Delivery Method Room Air Intake Visit Reasons: New patient-High BP Intake Note: Patient is here with high blood pressure, had a spike, was put on lisinopril/HCTZ combo. Would like to talk about that. Allergies acetaminophen [From Percocet] Allergy (Mild, Verified 06/10/23 15:17) leaves her ciarra rangel oxycodone [From Percocet] Allergy (Mild, Verified 06/10/23 15:17) leaves her ciarra rangel Medication List - Last Reconciled 06/10/23 by Paras Alicea MD amlodipine 5 mg PO DAILY calcium carbonate-vitamin D3 600 mg-10 mcg (400 unit) caps PO docusate sodium (Colace) 100 mg PO DAILY ibuprofen 600 mg PO Q8H PRN lisinopril 20 mg PO DAILY lisinopril-hydrochlorothiazide 20-12.5 mg 1 tab PO DAILY ondansetron 4 mg PO Q8H PRN Tobacco use date assessed: 06/10/23 Dental Screening Dental Screen Date: 06/10/23 Did you have a dental visit in the last 12 months?: Yes Did you have a dental problem in the last 6 months where you did not have access to dental care?: No Was dental information given to patient?: No HPI New patient-High BP HPI Details New patient Prior PCP:?Dr. Travis Last office visit/CPE: Acute issue(s): Establish Care PMHx: Hypertension, Lyme disease, L5 fracture after fall from horse age 19, Sciatica SurgHx: Tonsils, Ambliopia, Uterine ablation FHx: Mom: DM2, CHF, Dad: CVA, CAD w/ Bypass. Sister: Pancreatic CA, Heart Valve problems, Breast CA SocHx: Walks 3 mi daily & [place]. Nonsmoker. EtOH 1 gl wine q 3 mos. 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 HTN (hypertension) Lyme disease Spinal compression fracture Surgical History (Updated 06/10/23 @ 15:27 by Leigh Warner CMA) H/O dilation and curettage Hx of tonsillectomy Social History Household Members: Spouse Housing: House Do you presently have visiting nurse or other home services: No Patient Tobacco Use Status: Never used Tobacco e-Cigarette/Vaping Use: Never Used service: No Current occupational status: employed Cognitive needs: No Hearing needs: No Vision needs: Yes (patient wears glasses) Questionnaire PHQ-9 Over the last 2 weeks, how often have you been bothered by any of the following problems? 1. Little interest or pleasure in doing things: not at all 2. Feeling down, depressed, or hopeless: not at all 3. Trouble falling or staying asleep, or sleeping too much: not at all 4. Feeling tired or having little energy: not at all 5. Poor appetite or overeating: not at all 6. Feeling bad about yourself - or that you are a failure or have let yourself or your family down: not at all 7. Trouble concentrating on things, such as reading the newspaper or watching television: not at all 8. Moving or speaking so slowly that other people could have noticed. Or the opposite - being so fidgety or restless that you have been moving around a lot more than usual: not at all 9. Thoughts that you would be better off or of hurting yourself in some way: not at all Total score: 0 Source: Developed by Drs. Melvin Benites, Ansley Howe, Brice Ward and colleagues, with an educational naman from [employer]. Thrive Questionnaire I am a: Patient What is your living situation today?: I have a steady place to live Within the past 12 months, did the food you bought not last and you didn't have the money to get more?: Never true Within the past 12 months, did you worry whether your food would run out before you got money to buy more?: Never true Do you have trouble paying for medicines?: No Do you have trouble getting transportation to medical appointments?: No Do you have trouble paying your heating and electricity bill?: No Do you have trouble taking care of your child, family member or friend?: No Do you have trouble with day-to-day activities such as bathing, preparing meals, shopping, managing finances, etc.?: No Are you currently unemployed and looking for a job?: No Are you interested in more education?: No AUDIT C Alcohol Use Questionnaire (AUDIT-C) 1. How often do you have a drink containing alcohol?: Monthly or less 2. How many drinks containing alcohol do you have on a typical day when you are drinking?: 1 or 2 3. How often do you have six or more drinks on one occasion?: Never Total Score: 1 FIONA-7 AMB Questionnaire FIONA-7 Feeling nervous, anxious, or on edge: 0 = Not at all Not being able to stop or control worryin = Not at all Worrying too much about different things: 0 = Not at all Trouble relaxin = Not at all Being so restless that it is hard to sit still: 0 = Not at all Becoming easily annoyed or irritable: 0 = Not at all Feeling afraid as if something awful might happen: 0 = Not at all Total FIONA-7 score (0-4 normal; 5-9 mild; 10-14 moderate; 15-21 severe): 0 Source: Developed by Drs. Melvin Benites, Ansley Howe, Brice Ward and colleagues, with an educational naman from [employer]. Review of Systems Const Denies chills, Denies fatigue, Denies fever(s), Denies headache(s) and Denies weakness ENT Denies dizziness and Denies headache(s) Card Denies chest pain, Denies lightheadedness, Denies dyspnea and Denies other (Palpitations) Resp Denies cough, Denies dyspnea, Denies wheezing and Denies other ( shortness of breath) Musc Denies numbness and Denies tingling Neuro Denies dizziness, Denies headache(s), Denies numbness, Denies tingling, Denies paresthesias and Denies weakness Psych Denies anxiety and Denies depression Endo Denies fatigue Aller/Immun Denies wheezing Physical exam (Primary Care) Vital Signs: Last Vital Signs Pulse 75 06/10/23 15:11 BP 122/76 06/10/23 15:11 Pulse Ox 99 06/10/23 15:11 Oxygen Delivery Method Room Air 06/10/23 15:11 BMI result Body Mass Index 28.0 Tobacco/Smoking Status: Tobacco use Status Tobacco use date assessed 06/10/23 06/10/23 15:25 Patient Tobacco Use Status Never used Tobacco 06/10/23 15:25 e-Cigarette/Vaping Use Never Used 06/10/23 15:25 PHQ-9: PHQ-9 Score PHQ-9: Total score 0 06/10/23 15:30 Const General: no acute distress and well developed Nutritional Appearance: well nourished Orientation/consciousness: patient oriented x3 HENMT Head: Yes normocephalic and Yes atraumatic Eyes General: appearance normal, both eyes and all related structures Pupils: Equal, round and reactive pupils present EOM: EOMs intact bilaterally Resp Effort & Inspection: normal respiratory effort Auscultation: clear to auscultation bilaterally Cardio Rate: regular rate Rhythm: regular rhythm Heart sounds: S1 normal heart sound present, S2 normal heart sound present, no gallops, no murmurs and no rubs Neuro General: patient oriented x3 and gait normal Cranial nerves: Yes Equal, round and reactive pupils present Psych Affect: normal affect Assessment and Plan Assessment & Plan (1) HTN (hypertension): Code(s): I10 - Essential (primary) hypertension Plan: Blood pressure appears well controlled today. Goal is less than 140/90 She is taking lisinopril 20 mg daily and amlodipine 5 mg daily; continue current medication regimen She had been on lisinopril hydrochlorothiazide but she had had a bump in her creatinine level so hydrochlorothiazide was discontinued and we discussed this - no need to resume hydrochlorothiazide. However, she also notes that her blood pressures sometime spike. She has a blo od pressure cuff at home and she will let me know if this is the case. If so, will come up with a plan with her to handle acute spikes in her blood pressure (2) Lyme disease: Code(s): A69.20 - Lyme disease, unspecified Plan: History of rash and severe illness requiring hospitalization. Presumptive seronegative Lyme disease and she was treated with IV doxycycline Patient feels well now and has no apparent sequela (3) Immunization counseling: Code(s): Z71.85 - Encounter for immunization safety counseling Plan: She has had 13 Valent pneumonia shot but not 21 bili pneumonia shot and I recommended she get this at her Pharmacy Can also consider RSV vaccine (4) Laboratory exam ordered as part of routine general medical examination: Code(s): Z00.00 - Encounter for general adult medical examination without abnormal findings Plan: Check labs Orders: Orders Comprehensive Dell. Panel Fast Today Z00.00 - Encounter for general adult medical examination without abnormal findings Lipid Panel Today Z00.00 - Encounter for general adult medical examination without abnormal findings TSH reflex Free T4 Today Z00.00 - Encounter for general adult medical examination without abnormal findings Microalbumin, Random (w Creat) Today I10 - Essential (primary) hypertension Complete Blood Count Auto Diff Today Z00.00 - Encounter for general adult medical examination without abnormal findings UA and rflx microscopic Today Z00.00 - Encounter for general adult medical examination without abnormal findings Coding Level of Care Code New Pt Level 4 (81937) Diagnoses HTN (hypertension) I10 Lyme disease A69.20 Immunization counseling Z71.85 Laboratory exam ordered as part of routine general medical examination Z00.00
[2023-06-10 15:11] VITALS: BP 122/76; PULSE 75; O2SAT 99; BMI 28.0
== END 2023-06-10 16:13 | disposition home or self-care (01) ==
PROVIDERS: Visit Provider Family Medicine
DX: I10 Essential (primary) hypertension (principal); A69.20 Lyme disease, unspecified; Z71.85 Encounter for immunization safety counseling; Z00.00 Encounter for general adult medical examination without abnormal findings
CPT/HCPCS: 99204

== ENCOUNTER 2023-07-20 07:12 | Outpatient (REF) | payer MEDICARE, SELFPAY ==
[2023-07-20 11:21] LABS: MANUAL DIFF FLAG NO
[2023-07-20 12:08] LABS: Basophils Absolute Auto 0.1 X10*3/uL (0.0-0.2); Basophils Percent Auto 0.9 % (0-2); Eosinophils Absolute Auto 0.2 X10*3/uL (0.0-0.4); Eosinophils Percent Auto 2.8 % (0-4); Hematocrit 44.6 % (37.0-47.0); Hemoglobin 14.3 g/dl (12.0-16.0); Imm Gran Abs Auto 0.03 X10*3/uL (0.00-0.03); Imm Gran Pct Auto 0.4 % (0.0-0.4); Lymphocytes Percent Auto 25.2 % (20-40); Mean Corpuscular HGB Conc 32.1 g/dl (31.0-35.0); Mean Corpuscular Hemoglobin 28.9 pg (27.0-33.0); Mean Corpuscular Volume 90.1 fL (80.0-98.0); Mean Platelet Volume 12.1 fL (9.4-12.3); Monocytes Absolute Auto 0.6 X10*3/uL (0.1-1.2); Neutrophils Percent Auto 63.7 % (45-73); Platelet Count 292 X10*3/uL (160-400); Red Blood Count 4.95 X10*6/uL (4.20-5.50); White Blood Count 7.9 X10*3/uL (4.8-10.8)
[2023-07-20 12:28] LABS: Alanine Aminotransferase 16 U/L (0-31); Alkaline Phosphatase 74 U/L (39-117); Anion Gap 11 (12-20); Aspartate Amino Transferase 20 U/L (5-31); Bilirubin Total 0.3 mg/dL (0.0-1.0); Blood Urea Nitrogen 15 mg/dL (9-16); Calcium 10.4 mg/dL (8.4-10.2); Carbon Dioxide 29 mmol/L (22-29); Chloride 105 mmol/L (96-108); Cholesterol 198 mg/dL (<200); Estimated Glomerular Filt Rate > 60; Glucose Fasting 94 mg/dL (60-99); HDL Cholesterol 51 mg/dL (>40); LDL Cholesterol Calculated 129 mg/dL (<100); Potassium 4.3 mmol/L (3.3-5.1); Sodium 141 mmol/L (135-145); Triglycerides 93 mg/dL (<150)
[2023-07-20 12:32] LABS: TSH reflex Free T4 0.88 uIU/mL (0.32-4.0)
== END 2023-07-20 07:13 | disposition home or self-care (01) ==
LOC: HO.WFDLDS 07:12
PROVIDERS: Visit Provider Family Medicine
DX: Z00.00 Encounter for general adult medical examination without abnormal findings (principal)
CPT/HCPCS: 36415; 80053; 80061; 84443; 85025

== ENCOUNTER 2023-08-07 08:53 | Outpatient (REF) | payer MEDICARE, SELFPAY | END 2023-08-07 08:54 | disposition home or self-care (01) | LOC: HO.MAMMO 08:53 | PROVIDERS: PCP Family Medicine; Visit Provider Internal Medicine | DX: Z12.31 Encounter for screening mammogram for malignant neoplasm of breast (principal) | CPT/HCPCS: 77063; 77067 ==

== ENCOUNTER → 2023-08-07 09:30 | Outpatient (BNV) | payer MEDICARE, SELFPAY | PROVIDERS: PCP Family Medicine; Visit Provider Radiology Diagnostic Radiology | DX: Z12.31 Encounter for screening mammogram for malignant neoplasm of breast (principal) | CPT/HCPCS: 77063; 77067 ==

== ENCOUNTER 2023-08-14 13:52 | Outpatient (AMB) | payer MEDICARE, SELFPAY ==
--- NOTE | 2023-08-14 13:56 | A.OFFPC_ITS ---
Vital Signs 08/14/23 13:57 Height 5 ft 6 in Weight 176 lb BMI 28.4 BP 116/76 Blood Pressure Location Rt brachial Position Sitting Respiration 12 Pulse 85 Pulse Source Pulse Oximeter Temp 97 F Temp Source Temporal Artery Scan Pulse Oximetry (%) 99 Oxygen Delivery Method Room Air Intake Visit Reasons: Extended exam with f/u labs and health maintenance Nail Cutter Required: No Accompanied by: Self / Same As Patient Allergies acetaminophen [From Percocet] Allergy (Mild, Verified 08/14/23 14:05) leaves her ivyepciarra bosch oxycodone [From Percocet] Allergy (Mild, Verified 08/14/23 14:05) leaves her ciarra rangel Medication List - Last Reconciled 08/14/23 by Paras Alicea MD amlodipine 5 mg PO DAILY calcium carbonate-vitamin D3 600 mg-10 mcg (400 unit) caps PO docusate sodium (Colace) 100 mg PO DAILY ibuprofen 600 mg PO Q8H PRN lisinopril 20 mg PO DAILY Tobacco use date assessed: 06/10/23 Fall risk assessment: No Falls in past year Last assessed Fall Risk: 08/14/23 Dental Screening Dental Screen Date: 08/14/23 Did you have a dental visit in the last 12 months?: Yes Did you have a dental problem in the last 6 months where you did not have access to dental care?: No Was dental information given to patient?: Patient has dentist HPI Extended exam with f/u labs and health maintenance HPI Details 68 y/o female presents for an extended e xam with f/u labs and health maintenance. Blood pressure today 116/76. She is on amlodipine 5mg and lisinopril 20mg daily. Labs were drawn 07/20/23. Reviewed labs with pt. Triglycerides 93. TC 198. LDL 129. HDL 51. Pt has complaints of arthritis on her fingers. She continues to f/u with pap smears with her Ob-Flour Mixer Helper. She reports she had colonoscopies x2 and is due in about 3 years as they had found a polyp. Recent mammogram and results unavailable yet. 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 Lyme disease HTN (hypertension) Surgical History H/O dilation and curettage Hx of tonsillectomy Social History Household Members: Spouse Housing: House Do you presently have visiting nurse or other home services: No Patient Tobacco Use Status: Never used Tobacco e-Cigarette/Vaping Use: Never Used service: No Current occupational status: employed 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 needs: No Hearing needs: No Vision needs: Yes (patient wears glasses) Review of Systems Const Denies chills, Denies fatigue, Denies fever(s), Denies headache(s) and Denies weakness Eyes Denies change in vision ENT Denies dizziness, Denies headache(s), Denies hearing loss, Denies nasal congestion, Denies sinus pain, Denies sinus pressure and Denies sore throat Card Denies chest pain, Denies lightheadedness, Denies dyspnea and Denies other (palpitations) Resp Denies cough, Denies dyspnea and Denies wheezing GI Denies abdominal pain, Denies melena, Denies hematochezia, Denies change in bowel habits, Denies dyspepsia and Denies nausea Denies hematuria and Denies dysuria Musc Denies abnormal gait, Denies myalgias, Denies arthralgias, Denies numbness and Denies tingling Skin/Breast Denies rash, Denies unusual bruising and Denies wounds Neuro Denies abnormal gait, Denies dizziness, Denies headache(s), Denies memory loss, Denies numbness, Denies Sensory deficit (Neuro), Denies tingling and Denies weakness Psych Denies anxiety, Denies depression and Denies memory loss Endo Denies cold intolerance, Denies fatigue, Denies heat intolerance, Denies polydipsia and Denies polyuria Vidal/Lymph Denies easy bleeding and Denies easy bruising Aller/Immun Denies wheezing Physical exam (Primary Care) Vital Signs: Last Vital Signs Temp 97 F 08/14/23 13:57 Pulse 85 08/14/23 13:57 Resp 12 08/14/23 13:57 BP 116/76 08/14/23 13:57 Pulse Ox 99 08/14/23 13:57 Oxygen Delivery Method Room Air 08/14/23 13:57 BMI result Body Mass Index 28.4 Tobacco/Smoking Status: Tobacco use Status Tobacco use date assessed 06/10/23 08/14/23 14:10 Patient Tobacco Use Status Never used Tobacco 08/14/23 14:10 e-Cigarette/Vaping Use Never Used 08/14/23 14:10 Const General: no acute distress, well developed, alert and awake Nutritional Appearance: well nourished Orientation/consciousness: patient oriented x3 HENMT Head: Yes normocephalic and Yes atraumatic Ears: hearing grossly normal bilaterally and TM's normal bilaterally General nose exam: Normal external nose present and Normal nares present Mouth: Normal oral and palatal mucosa present and moist mucous membranes Teeth and gingiva: dentition normal Throat: Yes posterior oropharynx normal Eyes General: appearance normal, both eyes and all related structures Pupils: Equal, round and reactive pupils present and Pupil accommodation reflex normal EOM: EOMs intact bilaterally Neck Neck: Yes normal visual inspection, Yes no lymphadenopathy and Yes trachea midline Thyroid: Thyroid normal Carotids: no bruits Lymphatic: no lymphadenopathy noted Chest Chest palpation & inspection: normal inspection of the chest Resp Effort & Inspection: normal respiratory effort Auscultation: clear to auscultation bilaterally Cardio Rate: regular rate Rhythm: regular rhythm Heart sounds: S1 normal heart sound present, S2 normal heart sound present, no gallops, no murmurs and no rubs Bruits: no abdominal aortic bruits and no carotid bruits GI Palpation (GI): No Abdominal aortic bruit present, Soft to palpation, nontender, No hepatosplenomegaly present and No Rebound tenderness present Auscultation: normal bowel sounds General: Yes no CVA tenderness Back/Spine/Pelvis Back: no CVA tenderness Cervical Spine: cervical ROM normal and No Cervical spine tenderness Thoracic/Lumbar Spine: thoraco-lumbar ROM normal, No pain with thoraco-lumbar ROM, No thoracic spinal tenderness and No lumbar spinal tenderness Skin Lesions: no lesions Rashes: no rashes Trauma: no lacerations or abrasions Wounds: no wounds Nails: normal Neuro General: patient oriented x3 Cranial nerves: Yes Equal, round and reactive pupils present Cognition (Neuro): normal cognition Gait exam (Neuro): Normal gait present Motor exam (neuro): 5/5 motor strength present throughout Sensory Exam: No Sensory deficit (Neuro) Deep tendon reflexes (DTR's): Right patellar reflex intensity grade: 2+ and Left patellar reflex intensity grade: 2+ Extrem General: Yes normal to inspection and No edema Psych Appearance: grossly normal Affect: normal affect Attitude: cooperative Thought process: Normal thought process present Assessment and Plan Assessment & Plan (1) HTN (hypertension): Code(s): I10 - Essential (primary) hypertension Plan: Blood pressure is well controlled. Goal is less than 140/90 Continue amlodipine and lisinopril. (2) Arthritis of right hand: Code(s): M19.041 - Primary osteoarthritis, right hand Plan: She can use Aspercreme and heat. She can use ibuprofen intermittently. We discussed referral to hand surgeon if she is interested in injection therapy which may be helpful She will let me know (3) Breast cancer screening by mammogram: Code(s): Z12.31 - Encounter for screening mammogram for malignant neoplasm of breast Plan: Mammogram acquired on August 07 but is not read yet. We can follow-up on this at her next visit Prior mammogram was okay (4) Screening for cervical cancer: Code(s): Z12.4 - Encounter for screening for malignant neoplasm of cervix Plan: Patient gets Pap smears with her cook helper pastry Follow-up with cook helper pastry as recommended (5) Screening for colon cancer: Code(s): Z12.11 - Encounter for screening for malignant neoplasm of colon Plan: Recent colonoscopy be six-month repeat due to polyp. Next follow-up is in 3 years. She is followed by [facility]. (6) Screening for osteoporosis: Code(s): Z13.820 - Encounter for screening for osteoporosis Plan: Patient says her last bone density test was greater than 2 years ago. Bone density ordered (7) Adult general medical exam: Code(s): Z00.00 - Encounter for general adult medical examination without abnormal findings Plan: 68-year-old female presents for extended exam Orders: Orders XR DEXA axial skeleton Today Z13.820 - Encounter for screening for osteoporosis Coding Level of Care Code Est Pt Level 4 (47448) Diagnoses HTN (hypertension) I10 Arthritis of right hand M19.041 Breast cancer screening by mammogram Z12.31 Screening for cervical cancer Z12.4 Screening for colon cancer Z12.11 Screening for osteoporosis Z13.820 Adult general medical exam Z00.00
[2023-08-14 13:57] VITALS: BP 116/76; PULSE 85; RESP 12; TEMP 36.1; O2SAT 99; BMI 28.4
== END 2023-08-14 15:06 | disposition home or self-care (01) ==
PROVIDERS: PCP Family Medicine; Visit Provider Family Medicine
DX: I10 Essential (primary) hypertension (principal); M19.041 Primary osteoarthritis, right hand; Z12.31 Encounter for screening mammogram for malignant neoplasm of breast; Z12.4 Encounter for screening for malignant neoplasm of cervix; Z12.11 Encounter for screening for malignant neoplasm of colon; Z13.820 Encounter for screening for osteoporosis; Z00.00 Encounter for general adult medical examination without abnormal findings
CPT/HCPCS: 99214

== ENCOUNTER 2023-08-14 15:32 | Outpatient (REF) | payer MEDICARE, SELFPAY ==
[2023-08-14 19:10] LABS: Creatinine Urine 16.31 mg/dL; Microalbumin Urine < 5.0 mg/L
[2023-08-14 19:12] LABS: Appearance Urine Clear; Color Urine Yellow; Glucose Urine UA Negative (Negative); Leukocyte Esterase Urine Trace (Negative); Nitrite Urine Negative (Negative); PH 6.5 (5.0-9.0); Specific Gravity - Urine <= 1.005 (1.005-1.025); UMIC TRIGGER UA YES; Urine Blood Negative (Negative); Urine Ketones Negative (Negative); Urine Protein Negative (Neg-Trace)
[2023-08-14 19:19] LABS: Bacteria Urine None Seen (None Seen); Hyaline Casts Urine 0-2 /LPF (0-2); RBC Urine 0-2 /HPF (0-2); Squamous Epithelial Cell Urine 0-2 /HPF (0-2); WBC Urine 0-5 /HPF (0-5)
== END 2023-08-14 15:33 | disposition home or self-care (01) ==
LOC: HO.LAB 15:32
PROVIDERS: Visit Provider Family Medicine
DX: I10 Essential (primary) hypertension (principal)
CPT/HCPCS: 81001; 81003; 82043; 82570

== ENCOUNTER 2023-11-18 14:24 | Outpatient (AMB) | payer MEDICARE, SELFPAY ==
--- NOTE | 2023-11-18 14:35 | A.OFFPC_ITS ---
Vital Signs 11/18/23 14:37 Height 5 ft 6 in Weight 173 lb 6 oz BMI 28.0 BP 124/72 Blood Pressure Location Lt brachial Position Sitting Pulse 80 Pulse Source Pulse Oximeter Pulse Oximetry (%) 99 Oxygen Delivery Method Room Air Intake Visit Reasons: f/u hypertension Intake Note: Patient is here for follow up on hypertension today. Allergies acetaminophen [From Percocet] Allergy (Mild, Verified 11/18/23 14:39) leaves her weepy, weird oxycodone [From Percocet] Allergy (Mild, Verified 11/18/23 14:39) leaves her weepy, weird Tobacco use date assessed: 11/18/23 Fall risk assessment: No Falls in past year Last assessed Fall Risk: 11/18/23 HPI f/u hypertension HPI Details 68 y/o female presents to f/u hypertensi on. Blood presure today 124/72. She is on amlodipine 5mg and lisinopril 20mg daily. Recent mammogram was fine. 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 Lyme disease HTN (hypertension) Surgical History H/O dilation and curettage Hx of tonsillectomy Social History Household Members: Spouse Housing: House Do you presently have visiting nurse or other home services: No Patient Tobacco Use Status: Never used Tobacco e-Cigarette/Vaping Use: Never Used service: No Current occupational status: employed 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 needs: No Hearing needs: No Vision needs: Yes (patient wears glasses) Review of Systems Const Denies chills, Denies fatigue, Denies fever(s), Denies headache(s) and Denies weakness ENT Denies dizziness and Denies headache(s) Card Denies chest pain, Denies lightheadedness, Denies dyspnea and Denies other (Palpitations) Resp Denies cough, Denies dyspnea, Denies wheezing and Denies other ( shortness of breath) Musc Denies numbness and Denies tingling Neuro Denies dizziness, Denies headache(s), Denies numbness, Denies tingling, Denies paresthesias and Denies weakness Psych Denies anxiety and Denies depression Endo Denies fatigue Aller/Immun Denies wheezing Physical exam (Primary Care) Vital Signs: Last Vital Signs Pulse 80 11/18/23 14:37 BP 124/72 11/18/23 14:37 Pulse Ox 99 11/18/23 14:37 Oxygen Delivery Method Room Air 11/18/23 14:37 BMI result Body Mass Index 28.0 Tobacco/Smoking Status: Tobacco use Status Tobacco use date assessed 11/18/23 11/18/23 14:42 Patient Tobacco Use Status Never used Tobacco 11/18/23 14:37 e-Cigarette/Vaping Use Never Used 11/18/23 14:37 Const General: no acute distress and well developed Nutritional Appearance: well nourished Orientation/consciousness: patient oriented x3 HENMT Head: Yes normocephalic and Yes atraumatic Eyes General: appearance normal, both eyes and all related structures Pupils: Equal, round and reactive pupils present EOM: EOMs intact bilaterally Resp Effort & Inspection: normal respiratory effort Auscultation: clear to auscultation bilaterally Cardio Rate: regular rate Rhythm: regular rhythm Heart sounds: S1 normal heart sound present, S2 normal heart sound present, no gallops, no murmurs and no rubs Neuro General: patient oriented x3 and gait normal Cranial nerves: Yes Equal, round and reactive pupils present Psych Affect: normal affect Assessment and Plan Assessment & Plan (1) HTN (hypertension): Code(s): I10 - Essential (primary) hypertension Plan: Blood?pressure?is?controlled.??Goal?is?less?than?140/90 Continue?current?medication?regimen (2) Breast cancer screening by mammogram: Code(s): Z12.31 - Encounter for screening mammogram for malignant neoplasm of breast Plan: Mammogram?was?normal. Will?continue?screening?annually (3) Neoplasm of uncertain behavior of skin: Code(s): D48.5 - Neoplasm of uncertain behavior of skin Plan: Patient?notes?that?she?had?a?skin?growth?on?upper?left?chest?which?was?biopsied? by?new[facility]. Pathology?pending Asked?her?to?have?them?update?me?on?results. Coding Level of Care Code Est Pt Level 3 (11939) Diagnoses HTN (hypertension) I10 Breast cancer screening by mammogram Z12.31 Neoplasm of uncertain behavior of skin D48.5
[2023-11-18 14:37] VITALS: BP 124/72; PULSE 80; O2SAT 99; BMI 28.0
== END 2023-11-18 15:05 | disposition home or self-care (01) ==
PROVIDERS: PCP Family Medicine; Visit Provider Family Medicine
DX: I10 Essential (primary) hypertension (principal); Z12.31 Encounter for screening mammogram for malignant neoplasm of breast; D48.5 Neoplasm of uncertain behavior of skin
CPT/HCPCS: 99213

== ENCOUNTER 2024-01-08 10:27 | Outpatient (AMB) | payer MEDICARE, SELFPAY ==
[2024-01-08 10:29] VITALS: BP 122/70; PULSE 81; O2SAT 98; BMI 28.4
--- NOTE | 2024-01-08 10:29 | A.OFFPC_ITS ---
Vital Signs 01/08/24 10:29 Height 5 ft 6 in Weight 176 lb BMI 28.4 BP 122/70 Blood Pressure Location Lt brachial Position Sitting Pulse 81 Pulse Source Pulse Oximeter Pulse Oximetry (%) 98 Oxygen Delivery Method Room Air Intake Visit Reasons: Pain On upper Right thigh Intake Note: Patient is here for pain in upper right thigh, which has eased up. Allergies acetaminophen [From Percocet] Allergy (Mild, Verified 01/08/24 10:32) leaves her ciarra rangel oxycodone [From Percocet] Allergy (Mild, Verified 01/08/24 10:32) leaves her ciarra rangel Tobacco use date assessed: 01/08/24 Fall risk assessment: No Falls in past year Last assessed Fall Risk: 01/08/24 Dental Screening Dental Screen Date: 01/08/24 Did you have a dental visit in the last 12 months?: Yes Did you have a dental problem in the last 6 months where you did not have access to dental care?: No Was dental information given to patient?: Patient has dentist HPI Pain On upper Right thigh HPI Details 68 y/o female presents with complaints o f pain on upper R thigh. Blood pressure today 122/70. She is on lisinopril 20mg and amlodipine 5mg daily. Recent mammogram was fine. She reports no one has contacted her yet about a bone density test. Pt reports upper thigh pain which goes down to her knees when walking/exercising. 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 1. Little interest or pleasure in doing things: not at all 2. Feeling down, depressed, or hopeless: not at all 3. Trouble falling or staying asleep, or sleeping too much: not at all 4. Feeling tired or having little energy: not at all 5. Poor appetite or overeating: not at all 6. Feeling bad about yourself - or that you are a failure or have let yourself or your family down: not at all 7. Trouble concentrating on things, such as reading the newspaper or watching television: not at all 8. Moving or speaking so slowly that other people could have noticed. Or the opposite - being so fidgety or restless that you have been moving around a lot more than usual: not at all 9. Thoughts that you would be better off or of hurting yourself in some way: not at all Total score: 0 Source: Developed by Drs. Melvin Benites, Ansley Howe, Brice Ward and colleagues, with an educational naman from [employer]. Thrive Questionnaire Date Thrive assessed: 01/08/24 I am a: Patient What is your living situation today?: I have a steady place to live Within the past 12 months, did the food you bought not last and you didn't have the money to get more?: Never true Within the past 12 months, did you worry whether your food would run out before you got money to buy more?: Never true Do you have trouble paying for medicines?: No Do you have trouble getting transportation to medical appointments?: No Do you have trouble paying your heating and electricity bill?: No Do you have trouble taking care of your child, family member or friend?: No Do you have trouble with day-to-day activities such as bathing, preparing meals, shopping, managing finances, etc.?: No Are you currently unemployed and looking for a job?: No Are you interested in more education?: Yes THRIVE Score: 0 AUDIT C Alcohol Use Questionnaire (AUDIT-C) 1. How often do you have a drink containing alcohol?: Monthly or less 2. How many drinks containing alcohol do you have on a typical day when you are drinking?: 1 or 2 3. How often do you have six or more drinks on one occasion?: Never Total Score: 1 FIONA-7 AMB Questionnaire FIONA-7 Date FIONA - 7 assessed: 01/08/24 Feeling nervous, anxious, or on edge: 0 = Not at all Not being able to stop or control worryin = Not at all Worrying too much about different things: 0 = Not at all Trouble relaxin = Not at all Being so restless that it is hard to sit still: 0 = Not at all Becoming easily annoyed or irritable: 0 = Not at all Feeling afraid as if something awful might happen: 0 = Not at all Total FIONA-7 score (0-4 normal; 5-9 mild; 10-14 moderate; 15-21 severe): 0 Source: Developed by Drs. Melvin Benites, Ansley Howe, Brice Ward and colleagues, with an educational naman from [employer]. Review of Systems Const Denies chills, Denies fatigue, Denies fever(s), Denies headache(s) and Denies weakness ENT Denies dizziness and Denies headache(s) Card Denies chest pain, Denies lightheadedness, Denies dyspnea and Denies other (Palpitations) Resp Denies cough, Denies dyspnea, Denies wheezing and Denies other ( shortness of breath) Musc Denies numbness and Denies tingling Neuro Denies dizziness, Denies headache(s), Denies numbness, Denies tingling, Denies paresthesias and Denies weakness Psych Denies anxiety and Denies depression Endo Denies fatigue Aller/Immun Denies wheezing Physical exam (Primary Care) Vital Signs: Last Vital Signs Pulse 81 01/08/24 10:29 BP 122/70 01/08/24 10:29 Pulse Ox 98 01/08/24 10:29 Oxygen Delivery Method Room Air 01/08/24 10:29 BMI result Body Mass Index 28.4 Tobacco/Smoking Status: Tobacco use Status Tobacco use date assessed 01/08/24 01/08/24 10:34 Patient Tobacco Use Status Never used Tobacco 01/08/24 10:34 e-Cigarette/Vaping Use Never Used 01/08/24 10:34 PHQ-9: PHQ-9 Score PHQ-9: Total score 0 01/08/24 10:42 Thrive Assessment: Date of Thrive Assessment Date Thrive assessed 01/08/24 01/08/24 10:42 Const General: no acute distress and well developed Nutritional Appearance: well nourished Orientation/consciousness: patient oriented x3 HENMT Head: Yes normocephalic and Yes atraumatic Eyes General: appearance normal, both eyes and all related structures Pupils: Equal, round and reactive pupils present EOM: EOMs intact bilaterally Resp Effort & Inspection: normal respiratory effort Auscultation: clear to auscultation bilaterally Cardio Rate: regular rate Rhythm: regular rhythm Heart sounds: S1 normal heart sound present, S2 normal heart sound present, no g allops, no murmurs and no rubs Neuro General: patient oriented x3 and gait normal Cranial nerves: Yes Equal, round and reactive pupils present Psych Affect: normal affect Assessment and Plan Assessment & Plan (1) HTN (hypertension): Code(s): I10 - Essential (primary) hypertension Plan: Blood?pressure?is?controlled.??Goal?is?less?than?140/90 Continue?current?medication (2) Thigh pain: Code(s): M79.659 - Pain in unspecified thigh Plan: Pain?at?right?lateral?hip?and?thigh?which?radiates?down?towards?lateral?knee?whe n?walking/exercising. Some?mild?pain?with?lying?on it also Most?likely?appears?as?IT?band?syndrome? though?possible?trochanteric?bursitis,?less?likely. She?can?continue?using?OTC?medications?and?topical?medications. Will?refer?her?to?physical?therapy If?not?improving,?could?refer?to?ortho?for?consideration?of?injection?therapy. (3) Breast cancer screening by mammogram: Code(s): Z12.31 - Encounter for screening mammogram for malignant neoplasm of breast Plan: Mammogram?was?negative. Up-to-date (4) Screening for osteoporosis: Code(s): Z13.820 - Encounter for screening for osteoporosis Plan: Had?ordered?bone?density?testing?but?this?was?not?performed. Will?reorder?this?today (5) IT band syndrome: Code(s): M76.30 - Iliotibial band syndrome, unspecified leg Plan: As?above Orders: Orders PT Evaluation and Treatment Today M76.30 - Iliotibial band syndrome, unspecified leg, M79.659 - Pain in unspecified thigh Coding Level of Care Code Est Pt Level 3 (54388) Diagnoses HTN (hypertension) I10 Thigh pain M79.659 Breast cancer screening by mammogram Z12.31 Screening for osteoporosis Z13.820 IT band syndrome M76.30
== END 2024-01-08 11:17 | disposition home or self-care (01) ==
PROVIDERS: PCP Family Medicine; Visit Provider Family Medicine
DX: I10 Essential (primary) hypertension (principal); M79.659 Pain in unspecified thigh; Z12.31 Encounter for screening mammogram for malignant neoplasm of breast; Z13.820 Encounter for screening for osteoporosis; M76.30 Iliotibial band syndrome, unspecified leg
CPT/HCPCS: 99213

== ENCOUNTER 2024-01-22 08:38 | Outpatient (REF) | payer MEDICARE, SELFPAY ==
--- NOTE | ~2024-01-22 | MM_ITS ---
EXAMINATION: BONE DENSITOMETRY CLINICAL INDICATION: Encounter for screening for osteoporosis. COMPARISON: Baseline BD dated 05/18/2018. TECHNIQUE: Using a [employer] DXA System (software version: 13.1) manufactured by [employer], dual-energy x-ray absorptiometry was performed of the lumbar spine and left hip. The images are of good technical quality. Summary results are attached. FINDINGS: LEFT FEMUR, NECK: Current: BMD 0.852 g/cm2, Z-score 0.0, T-score -1.3, osteopenia. Baseline: BMD 0.966 g/cm2. LEFT FEMUR, TOTAL: Current: BMD 0.987 g/cm2, Z-score 1.0, T-score -0.2, normal, 3.2% decrease from baseline (<5% change is not significant). Baseline: BMD 1.020 g/cm2. AP SPINE L1-L4: Current: BMD 1.225 g/cm2, Z-score 1.6, T-score 0.4, normal, 1.1% decrease from baseline (<5% change is not significant). Baseline: BMD 1.239 g/cm2. IDENTIFIED RISK FACTORS: Early menopause, secondary osteoporosis. HISTORY OF FRACTURE: None listed. MEDICATIONS: Calcium supplements or multivitamin, vitamin D. MM/XR DEXA axial skeleton IMPRESSION: 1. DIAGNOSIS: Osteopenia based on the lowest T-score value of -1.3 in the femoral neck applying World Health Organization criteria. 2. 10-YEAR FRACTURE RISK PREDICTION, FRAX: Major osteoporotic fracture (clinical spine, forearm, hip or shoulder) 9.3%. Hip fracture 1.1%. 3. Treatment Recommendations: NOF guidelines recommend consideration for treatment in postmenopausal women and men age 50 and older presenting with the following: -A hip or vertebral (clinical or morphometric) fracture. -T-score less than or equal to -2.5 at the femoral neck or spine after appropriate evaluation to exclude secondary causes. -Low bone mass at the hip or spine and a 10-year fracture probability by FRAX of greater than or equal to 3% for hip fracture or greater than or equal to 20% for major osteoporotic fracture based on the [place] adapted WHO algorithm. 4. Other Recommendations: All treatment decisions require clinical judgment and consideration of individual patient factors, including patient preferences, comorbidities, previous drug use, risk factors not captured in the FRAX model (e.g. frailty, falls, vitamin D deficiency, increased bone turnover, interval significant decline in bone density) and possible under or overestimation of fracture risk by FRAX. Additional medical evaluation for secondary cause of low bone mineral density may be appropriate. FUTURE SCAN RECOMMENDATION: People with diagnosed cases of osteoporosis or at high risk for fracture should have regular bone mineral density tests. For patients eligible for Medicare, routine testing is allowed once every 2 years. The testing frequency can be increased to one year for patients who have rapidly progressing disease, those who are receiving or discontinuing medical therapy to restore bone mass, or have additional risk factors.
== END 2024-01-22 08:39 | disposition home or self-care (01) ==
LOC: HO.MAMMO 08:38
PROVIDERS: PCP Family Medicine; Visit Provider Family Medicine
DX: Z13.820 Encounter for screening for osteoporosis (principal); Z78.0 Asymptomatic menopausal state; M81.0 Age-related osteoporosis without current pathological fracture
CPT/HCPCS: 77080

== ENCOUNTER 2024-03-10 08:21 | Outpatient (AMB) | payer MEDICARE, SELFPAY ==
--- NOTE | 2024-03-09 12:34 | A.OFFPC_ITS ---
Vital Signs 03/10/24 08:37 Height 5 ft 6 in Weight 175 lb 4 oz BMI 28.3 BP 128/74 Blood Pressure Location Lt brachial Position Sitting Respiration 12 Pulse 86 Pulse Source Pulse Oximeter Pulse Oximetry (%) 99 Oxygen Delivery Method Room Air Intake Visit Reasons: f/u hypertension Intake Note: Patient is here for a follow up of hypertension. Patient reports taking her blood pressure at home and having no concerns. Filter Screen Cleaner Required: No Accompanied by: Self / Same As Patient Allergies oxycodone [From Percocet] Allergy (Mild, Verified 03/10/24 08:40) leaves her ciarra rangel Medication List - Last Reconciled 03/10/24 by Paras Alicea MD amlodipine 5 mg PO DAILY 90 days calcium carbonate-vitamin D3 600 mg-10 mcg (400 unit) caps PO docusate sodium (Colace) 100 mg PO DAILY ibuprofen 600 mg PO Q8H PRN lisinopril 20 mg PO DAILY 90 days Tobacco use date assessed: 01/08/24 Dental Screening Dental Screen Date: 01/08/24 HPI f/u hypertension HPI Details Patient?presents?to?follow-up?hypertension Blood?pressure?is?128/74 No?problems?with?her?medications,?amlodipine?and?lisinopril Blood?pressures?have?remained?steady?over?the?past?year She?has?a?way?to?check?her?blood?pressures?at?home Had?bone?density?test?recently?and?this?is?showing?osteopenia She?has?been?taking?a?calcium/vitamin-D?supplement?recently Goes?for?walks?almost?every?day [facility] Medical History Spinal compression fracture 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 1. Little interest or pleasure in doing things: not at all 2. Feeling down, depressed, or hopeless: not at all 3. Trouble falling or staying asleep, or sleeping too much: not at all 4. Feeling tired or having little energy: not at all 5. Poor appetite or overeating: not at all 6. Feeling bad about yourself - or that you are a failure or have let yourself or your family down: not at all 7. Trouble concentrating on things, such as reading the newspaper or watching television: not at all 8. Moving or speaking so slowly that other people could have noticed. Or the opposite - being so fidgety or restless that you have been moving around a lot more than usual: not at all 9. Thoughts that you would be better off or of hurting yourself in some way: not at all Total score: 0 Depression Screening Interpretation: Negative Depression Screening Done: Yes 12481 - PHQ-9 Billing: Yes Source: Developed by Drs. Melvin Benites, Brice Kumar and colleagues, with an educational naman from [employer]. Thrive Questionnaire Date Thrive assessed: 01/08/24 FIONA-7 AMB Questionnaire FIONA-7 Date FIONA - 7 assessed: 01/08/24 Source: Developed by Ansley Ha Kurt Kroenke and colleagues, with an educational naman from [employer]. Review of Systems Const Denies chills, Denies fatigue, Denies fever(s), Denies headache(s) and Denies weakness ENT Denies dizziness and Denies headache(s) Card Denies chest pain, Denies lightheadedness, Denies dyspnea and Denies other (Palpitations) Resp Denies cough, Denies dyspnea, Denies wheezing and Denies other ( shortness of breath) Musc Denies numbness and Denies tingling Neuro Denies dizziness, Denies headache(s), Denies numbness, Denies tingling, Denies paresthesias and Denies weakness Psych Denies anxiety and Denies depression Endo Denies fatigue Aller/Immun Denies wheezing Physical exam (Primary Care) Vital Signs: Last Vital Signs Pulse 86 03/10/24 08:37 Resp 12 03/10/24 08:37 BP 128/74 03/10/24 08:37 Pulse Ox 99 03/10/24 08:37 Oxygen Delivery Method Room Air 03/10/24 08:37 BMI result Body Mass Index 28.3 Tobacco/Smoking Status: Tobacco use Status Tobacco use date assessed 01/08/24 03/09/24 12:35 Patient Tobacco Use Status Never used Tobacco 03/09/24 12:35 e-Cigarette/Vaping Use Never Used 03/09/24 12:35 PHQ-9: PHQ-9 Score PHQ-9: Total score 0 03/10/24 08:29 Depression Screening Interpretation: Negative Thrive Assessment: Date of Thrive Assessment Date Thrive assessed 01/08/24 03/09/24 12:35 Const General: no acute distress and well developed Nutritional Appearance: well nourished Orientation/consciousness: patient oriented x3 HENMT Head: Yes normocephalic and Yes atraumatic Eyes General: appearance normal, both eyes and all related structures Pupils: Equal, round and reactive pupils present EOM: EOMs intact bilaterally Resp Effort & Inspection: normal respiratory effort Auscultation: clear to auscultation bilaterally Cardio Rate: regular rate Rhythm: regular rhythm Heart sounds: S1 normal heart sound present, S2 normal heart sound present, no gallops, no murmurs and no rubs Neuro General: patient oriented x3 and gait normal Cranial nerves: Yes Equal, round and reactive pupils present Psych Affect: normal affect Assessment and Plan Assessment & Plan (1) HTN (hypertension): Code(s): I10 - Essential (primary) hypertension Plan: Blood?pressure?is?controlled.??Goal?is?less?than?140/90 Continue?current?medication?regimen (2) Osteopenia: Code(s): M85.80 - Other specified disorders of bone density and structure, unspecified site Plan: Bone?density?test?shows?osteopenia Advised?good?sources?of?calcium?and?vitamin-D?and?weight-bearing?exercise She?is?currently?taking?a?calcium?with?vitamin- D?supplement?about?every?other?day Will?follow?with?bone?density?testing?every?2?years Coding Level of Care Code Est Pt Level 3 (84042) Diagnoses HTN (hypertension) I10 Osteopenia M85.80
[2024-03-10 08:37] VITALS: BP 128/74; PULSE 86; RESP 12; O2SAT 99; BMI 28.3
== END 2024-03-10 09:04 | disposition home or self-care (01) ==
PROVIDERS: PCP Family Medicine; Visit Provider Family Medicine
DX: I10 Essential (primary) hypertension (principal); M85.80 Other specified disorders of bone density and structure, unspecified site
CPT/HCPCS: 99213

== ENCOUNTER 2024-06-08 07:00 | Outpatient (RCR) | payer MEDICARE, SELFPAY ==
--- NOTE | 2024-04-27 14:00 | MHC.PT.EP ---
[facility] [place] Office [place] Office [place] Office [address] Aisha Wilcox [address] [phone] F: [phone] F: [phone] F: [phone] F: [phone] Physical Therapy Plan of Care Date of Evaluation: 04/27/24 Date of Surgery: NA Diagnosis: IT BAND SYNDROME Assessment: Pt IS 68 YO F REFERRED TO PT FROM DR ALMENDAREZ WITH ITB SYNDROME ON R. PRESENTS TO PT WITH PAIN R HIP AREA WITH DECREASED FLEXIBILITY NOTED AND DECREASED HIP ABDUCTION STRENGTH. Pt SHOULD BENEFIT FROM PT TO ADDRESS THESE ISSUES WITH STRETCHING AND STRENGTHENING PROGRAM Frequency and Duration: The patient will be seen 2X/WK X 6 WKS Short Term Goals: 1. INCREASED AWARENESS LB AND HIP CARE 2. I HEP WITH DC EX PLAN Half-Way Goals: 1. Pt ABLE TO SLEEP IN SIDE WITHOUT INCREASE IN SXS 2. Pt ABLE TO TILE INSPECTOR GRNDDTR WITHOUT INCREASE IN PAIN 3. Pt TO REPORT LESS PAIN (AT MOST 2/10) R HIP AREA 4. R HIP ABD STRENGTH 5/5 WITH MMT Treatment Plan: Modalities to reduce pain, spasms and effusion. Manual therapy to restore motion and function. Therapeutic exercise to improve strength and flexibility. Neuromuscular re-education for posture and balance. Therapeutic activities to return to functional activities of daily living. Electronically signed by: DANAE CASTANEDA PT Please sign and return to therapist. Thank you for your referral.
--- NOTE | 2024-06-08 14:33 | MHC.PT.DC ---
[facility] [place] Office [place] Office [place] Office [address] Aisha Wilcox [address] [phone] F: [phone] F: [phone] F: [phone] F: [phone] Physical Therapy Discharge Report Diagnosis: IT BAND SYNDROME Date of Surgery: NA Date of Evaluation: 04/27/24 Date of Discharge: 06/08/24 Treatments to Date: 7 Cancellations to Date: No Shows to Date: Discharge Status: Improved Function Independent with HEP Discharge Summary: Pt. has attended 7 visits since 04/27/24, will DC to HEP. All short term goals have been met and 3/4 care home goals have been met. Pt has 4/5 R hip abduction strength, pt will continue to strengthen at home. Previously she was unable to abduct her R leg off the table. Pt. encouraged to call with any questions or concerns Electronically signed by: DANAE CASTANEDA PT Please sign and return to therapist. Thank you for your referral.
--- NOTE | 2024-06-08 14:35 | MHC.PT.DC ---
[facility] [place] Office [place] Office [place] Office [address] Aisha Wilcox [address] [phone] F: [phone] F: [phone] F: [phone] F: [phone] Physical Therapy Discharge Report Diagnosis: IT BAND SYNDROME Date of Surgery: NA Date of Evaluation: 04/27/24 Date of Discharge: 06/08/24 Treatments to Date: 7 Cancellations to Date: No Shows to Date: Discharge Status: Improved Function Independent with HEP Discharge Summary: Pt. has attended 7 visits since 04/27/24, will DC to HEP. All short term goals have been met and 3/4 group home goals have been met. Pt has 4/5 R hip abduction strength, pt will continue to strengthen at home. Previously she was unable to abduct her R leg off the table. Pt. encouraged to call with any questions or concerns Electronically signed by: DANAE CASTANEDA PT Please sign and return to therapist. Thank you for your referral.
== END 2024-06-08 14:36 | disposition home or self-care (01) ==
LOC: HO.PTWFD 07:00
PROVIDERS: PCP Family Medicine; Visit Provider Family Medicine
DX: M76.31 Iliotibial band syndrome, right leg (principal); M79.651 Pain in right thigh
CPT/HCPCS: 97110; 97140; 97161; 97535

== ENCOUNTER 2024-07-05 10:31 | Outpatient (AMB) | payer MEDICARE, SELFPAY ==
--- NOTE | 2024-07-05 10:36 | A.OFFPC_ITS ---
Vital Signs 07/05/24 10:42 Height 5 ft 6 in Weight 158 lb 4 oz BMI 25.5 BP 130/66 Blood Pressure Location Lt brachial Position Sitting Respiration 16 Pulse 88 Pulse Source Pulse Oximeter Temp 98 F Temp Source Tympanic Pulse Oximetry (%) 98 Oxygen Delivery Method Room Air Intake Visit Reasons: post covid symptoms had covid last month Intake Note: not able to eat patient has the shaking and had excessive weight loss wondering if she might still have lingering covid.feeling weak Allergies oxycodone [From Percocet] Allergy (Mild, Verified 07/05/24 10:42) leaves her weciarra diaz Tobacco use date assessed: 01/08/24 Dental Screening Dental Screen Date: 01/08/24 HPI post covid symptoms had covid last month HPI Details Pt presents today to discuss post covid symptoms. She reports she had covid last month. She reports excessive weight loss and fatigue. Also reports some nausea. 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 Melvin Benites, Ansley Howe, Brice Ward and colleagues, with an educational naman from [employer]. Review of Systems Const Reports fatigue, Denies headache(s) and Denies weakness ENT Denies dizziness and Denies headache(s) Card Denies dyspnea Resp Denies cough, Denies dyspnea, Denies wheezing and Denies other (shortness of breath) GI Reports nausea Musc Denies numbness and Denies tingling Neuro Denies dizziness, Denies headache(s), Denies numbness, Denies tingling and Denies weakness Psych Denies anxiety and Denies depression Endo Reports fatigue Aller/Immun Denies wheezing Physical exam (Primary Care) Vital Signs: Last Vital Signs Temp 98 F 07/05/24 10:42 Pulse 88 07/05/24 10:42 Resp 16 07/05/24 10:42 BP 130/66 07/05/24 10:42 Pulse Ox 98 07/05/24 10:42 Oxygen Delivery Method Room Air 07/05/24 10:42 BMI result Body Mass Index 25.5 Tobacco/Smoking Status: Tobacco use Status Tobacco use date assessed 01/08/24 07/05/24 10:38 Patient Tobacco Use Status Never used Tobacco 07/05/24 10:38 e-Cigarette/Vaping Use Never Used 07/05/24 10:38 Thrive Assessment: Date of Thrive Assessment Date Thrive assessed 01/08/24 07/05/24 10:38 Const General: well developed; No acute distress Nutritional Appearance: well nourished Orientation/consciousness: patient oriented x3 HENMT Head: Yes normocephalic and Yes atraumatic Eyes General: appearance normal, both eyes and all related structures Pupils: Equal, round and reactive pupils present EOM: EOMs intact bilaterally Resp Effort & Inspection: normal respiratory effort Neuro General: patient oriented x3 and gait normal Cranial nerves: Yes Equal, round and reactive pupils present Psych Affect: normal affect Assessment and Plan Assessment & Plan (1) Fatigue: Code(s): R53.83 - Other fatigue Plan: Fatigue?since?testing?positive?for?COVID?about?5?weeks?ago Rechecking?COVID/flu/RSV Checking?labs (2) Nausea: Code(s): R11.0 - Nausea Plan: Nausea?and?possibly?some?mild?dehydration Will?give?her?some?ondansetron Hydrate?well?and?get?regular?meals?as?tolerated Has?had?weight?loss?as?well?about?17?lb. Will?follow-up?on?this?and?if?she?is?still?having?difficulty,?will?refer?to?GI Orders: Orders Comprehensive Met. Panel Today R53.83 - Other fatigue Complete Blood Count Auto Diff Today R53.83 - Other fatigue, Z00.00 - Encounter for general adult medical examination without abnormal findings UA and rflx microscopic Today R53.83 - Other fatigue, Z00.00 - Encounter for general adult medical examination without abnormal findings IRON PROFILE Today R53.83 - Other fatigue TSH reflex Free T4 Today R53.83 - Other fatigue, Z00.00 - Encounter for general adult medical examination without abnormal findings Erythrocyte Sedimentation Rate Today R53.83 - Other fatigue CRP High Sensitivity Today R53.83 - Other fatigue Medications: New ondansetron 4 mg PO DAILY 10 days PRN 10 tabs 0RF nausea and vomiting Coding Level of Care Code Est Pt Level 3 (04401) Diagnoses Fatigue R53.83 Nausea R11.0
[2024-07-05 10:42] VITALS: BP 130/66; PULSE 88; RESP 16; TEMP 36.6; O2SAT 98; BMI 25.5
== END 2024-07-05 11:27 | disposition home or self-care (01) ==
PROVIDERS: PCP Family Medicine; Visit Provider Family Medicine
DX: R53.83 Other fatigue (principal); R11.0 Nausea
CPT/HCPCS: 99213

== ENCOUNTER 2024-07-05 11:30 | Outpatient (REF) | payer MEDICARE, SELFPAY | END 2024-07-05 11:31 | disposition home or self-care (01) | LOC: HO.LAB 11:30 | PROVIDERS: Visit Provider Family Medicine | DX: Z13.89 Encounter for screening for other disorder (principal) ==

== ENCOUNTER 2024-07-05 11:31 | Outpatient (REF) | payer MEDICARE, SELFPAY ==
[2024-07-05 14:02] LABS: MANUAL DIFF FLAG NO
[2024-07-05 14:10] LABS: Appearance Urine Clear; Color Urine Yellow; Glucose Urine UA Negative (Negative); Leukocyte Esterase Urine Large (3+) (Negative); Nitrite Urine Negative (Negative); Specific Gravity - Urine 1.015 (1.005-1.025); UMIC TRIGGER UA YES; Urine Blood Negative (Negative); Urine Ketones Trace mg/dL (Negative); Urine Protein Negative (Neg-Trace)
[2024-07-05 14:10] LABS: Basophils Absolute Auto 0.1 X10*3/uL (0.0-0.2); Basophils Percent Auto 0.7 % (0-2); Eosinophils Absolute Auto 0.1 X10*3/uL (0.0-0.4); Eosinophils Percent Auto 1.1 % (0-4); Hematocrit 43.5 % (37.0-47.0); Hemoglobin 14.6 g/dl (12.0-16.0); Imm Gran Abs Auto 0.05 X10*3/uL (0.00-0.03); Imm Gran Pct Auto 0.5 % (0.0-0.4); Lymphocytes Absolute Auto 2.1 X10*3/uL (1.2-4.9); Mean Corpuscular HGB Conc 33.6 g/dl (31.0-35.0); Mean Corpuscular Hemoglobin 29.6 pg (27.0-33.0); Mean Corpuscular Volume 88.2 fL (80.0-98.0); Mean Platelet Volume 12.5 fL (9.4-12.3); Monocytes Absolute Auto 0.7 X10*3/uL (0.1-1.2); Monocytes Percent Auto 7.6 % (2-11); Neutrophils Absolute Auto 6.5 x10*3/uL (2.0-8.3); Neutrophils Percent Auto 68.1 % (45-73); Platelet Count 280 X10*3/uL (160-400); Red Blood Count 4.93 X10*6/uL (4.20-5.50); Red Cell Distribution Width 12.7 % (11.0-16.0); White Blood Count 9.6 X10*3/uL (4.8-10.8)
[2024-07-05 14:17] LABS: Bacteria Urine None Seen (None Seen); Hyaline Casts Urine 0-2 /LPF (0-2); RBC Urine 0-2 /HPF (0-2); WBC Urine 21-50 /HPF (0-5)
[2024-07-05 14:28] LABS: Alanine Aminotransferase 12 U/L (0-31); Albumin Level 4.4 g/dL (3.5-5.0); Alkaline Phosphatase 68 U/L (39-117); Anion Gap 15 (12-20); Aspartate Amino Transferase 17 U/L (5-31); Bilirubin Total 0.4 mg/dL (0.0-1.0); Blood Urea Nitrogen 10 mg/dL (9-16); Carbon Dioxide 26 mmol/L (22-29); Chloride 98 mmol/L (96-108); Estimated Glomerular Filt Rate > 60; Glucose Random 95 mg/dL (60-115); Iron 77 mcg/dL (30-160); Percent Iron Saturation 27 % (15-50); Potassium 3.8 mmol/L (3.3-5.1); Sodium 135 mmol/L (135-145); Total Iron Binding Capacity 282 mcg/dL (228-428); Total Protein 7.2 g/dL (6.5-8.0); Unsaturated Iron Binding 205 ug/dL
[2024-07-05 14:59] LABS: Erythrocyte Sedimentation Rate 7 MM/HR (0-20)
[2024-07-05 15:02] LABS: Influenza A PCR NEGATIVE (Negative); Influenza B PCR NEGATIVE (Negative); Resp Syncy Virus RNA Qual PCR NEGATIVE (Negative); SARS COV2 PCR INHOUSE NEGATIVE (Negative)
== END 2024-07-05 11:32 | disposition home or self-care (01) ==
LOC: HO.WFDLDS 11:31
PROVIDERS: Visit Provider Family Medicine
DX: Z00.00 Encounter for general adult medical examination without abnormal findings (principal); R53.83 Other fatigue; Z20.822 Contact with and (suspected) exposure to COVID-19
CPT/HCPCS: 0241U; 80053; 81001; 83540; 84443; 85025; 85652; 86141

== ENCOUNTER 2024-07-09 18:21 | Emergency (ER) | payer MEDICARE, SELFPAY ==
--- NOTE | 2024-07-09 18:44 | ED.GENADULT ---
HPI - General Adult General Chief complaint: General Medical Stated complaint: covid 5wks ago/unsteady on her feet Time Seen by Provider: 07/09/24 21:58 Source: patient Mode of arrival: ambulatory Limitations: no limitations History of Present Illness ED Provider: Kamar Young PA-C HPI narrative: 69 year old female with a PMHx of hypertension and Lyme disease presents to the ED complaining of generalized fatigue, weight loss, and lightheadedness x5 weeks s/p having COVID-19. Admits to taking Paxlovid, finished 1 month ago. Reports anorexia/decreased p.o. intake with about 17-18 lbs weight loss. Saw her PCP on Thursday for similar symptoms and had labs which were unremarkable. Denies nausea, vomiting, diarrhea, abdominal pain, chest pain/shortness of breath, headache. Onset (ago): week(s) (5) Related Data Home Medications ?Medication ?Instructions ?Recorded ?Confirmed calcium carbonate 600 mg-vitamin cap PO 06/10/23 03/10/24 D3 10 mcg (400 unit) capsule docusate sodium 100 mg capsule 100 mg PO DAILY 06/10/23 03/10/24 (Colace) ibuprofen 600 mg tablet 600 mg PO Q8H PRN 06/10/23 03/10/24 Previous Rx's ?Medication ?Instructions ?Recorded amlodipine 5 mg tablet 5 mg PO DAILY 90 days #90 tabs 10/06/23 lisinopril 20 mg tablet 20 mg PO DAILY 90 days #90 tabs 10/06/23 molnupiravir 200 mg capsule (EUA) 800 mg (4 x 200 mg) PO Q12H 5 days 05/27/24 (Lagevrio) #40 caps ondansetron 4 mg disintegrating 4 mg PO DAILY PRN nausea and 07/05/24 tablet vomiting 10 days #10 tabs Allergies Allergy/AdvReac Type Severity Reaction Status Date / Time oxycodone [From Percocet] Allergy Mild leaves her Verified 07/09/24 18:48 ciarra rangel Review of Systems Review of Systems: Constitutional: + Weight loss, No Fever, No Chills, +fatigue ENT/Mouth: No Ear Pain, No Nasal Congestion, No Sinus Pain, No Hoarseness, No sore throat, No Rhinorrhea, No Swallowing Difficulty Cardiovascular: No Chest Pain, No SOB Respiratory: No Cough, No Sputum, No Wheezing Gastrointestinal:No Nausea, No Vomiting, No Diarrhea, No Constipation, No Abdominal pain Genitourinary: No Dysuria, No Urinary Frequency, No Hematuria, No Flank Pain Musculoskeletal: No joint pain, No Myalgias, No Joint Swelling Skin: No Skin Lesions, No rash Neuro: + Weakness, No Numbness, No Paresthesias, + lightheaded Yes all other systems are reviewed and are negative Constitutional: Constitutional: Reports as per HPI Neurologic: Denies Abnormal speech present [facility] Past Medical History Attestation statement: The following information was validated with the patient. 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 Lyme disease HTN (hypertension) Surgical History H/O dilation and curettage Hx of tonsillectomy Social History Social History Household Members: Spouse Housing: House Do you presently have visiting nurse or other home services: No Patient Tobacco Use Status: Never used Tobacco Smoked in Last 30 Days: No e-Cigarette/Vaping Use: Never Used Use of substances other than those prescribed or required for medical reasons: No Advance Directives: Yes Advance Directives on File: Yes Advance Directives Date on File: 07/19/21 Do you have a plan to hurt others: No Plan service: No Current occupational status: employed 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 needs: No Hearing needs: No Vision needs: Yes (patient wears glasses) Physical Exam ED Vital Signs: Vital Signs - 24 hr 07/09/24 18:45 07/09/24 20:22 07/09/24 23:44 Temperature 97.8 F 97.7 F 97.7 F Pulse Rate 104 H 87 87 Respiratory Rate 18 18 18 Blood Pressure 110/69 140/75 H 140/75 H Pulse Oximetry 97 98 98 Oxygen Delivery Method Room Air Room Air Room Air BMI result Body Mass Index 25.2 Const General: cooperative, healthy appearing and no acute distress Orientation/consciousness: patient oriented x3 Limitations: no limitations HENMT Head: Yes normal to inspection and Yes atraumatic Ears: hearing grossly normal bilaterally General nose exam: Normal external nose present Face and sinus: Yes normal facial exam Throat: Yes posterior oropharynx normal Eyes General: appearance normal, both eyes and all related structures EOM: EOMs intact bilaterally Neck Neck: Yes normal visual inspection and Yes no meningeal signs Resp Effort & Inspection: normal respiratory effort and no respiratory distress Auscultation: clear to auscultation bilaterally, no crackles and no wheezes Cardio Rate: regular rate Heart sounds: S1 normal heart sound present and S2 normal heart sound present GI Inspection: Yes normal to inspection Palpation (GI): Soft to palpation, nontender, no guarding and not rigid General: Yes no CVA tenderness Back/Spine/Pelvis Back: no CVA tenderness Skin Rashes: no rashes Wounds: no wounds Neuro General: patient oriented x3, gait normal, tone normal, moves all extremities, no meningeal signs, no focal motor deficits and CN's II-XI intact bilaterally Cranial nerves: Yes CN's II-XII intact bilaterally Cognition (Neuro): normal cognition Speech: No Abnormal speech present Gait exam (Neuro): Normal gait present Motor exam (neuro): 5/5 motor strength present throughout, Pronator motor function not present and no tremor noted Extrem General: Yes normal to inspection Course Course Course Narrative: This is a rapid medical exam performed by Ad Camejo NP: Additional HPI, ROS, PE not included below will be deferred to primary provider. Patient is a 69-year-old female presenting to the emergency department with complaint of decreased appetite and 17lb weight loss over the last 5 weeks since testing positive for Covid, fatigue and feeling unsteady. She attributes some of the appetite changes to Paxlovid. Saw PCP yesterday and was told her labs looked normal but she states she does not feel normal. Denies vomiting. Second time havign Covid. Plan: EKG, labs, viral swabs -labs reviewed from 07/05 and unremarkable/reassuring, however UA appeared infected, patient was not started on antibiotics, will repeat today -labs today unremarkable, patient will not wait for UA results. Recommended close PCP and GI follow-up Results discussed with patient including worrisome signs and symptoms and strict return precautions, and when to return to the emergency department. They verbalized understanding and feel safe for discharge at this time. -[id number]--UA mildly infected will send antibiotics Medical Decision Making Medical Decision Making [facility] Narrative: 69 year old female with a PMHx of hypertension and Lyme disease presents to the ED complaining of generalized fatigue, weight loss, and lightheadedness x5 weeks s/p having COVID-19. On exam initially mildly tachycardic, NAD, nontoxic appearing, no focal neuro deficits, exam otherwise nonfocal/benign. Concern for subsequent COVID-19 symptoms/prolonged COVID vs metabolic/infectious etiologies vs viral illness. Lower suspicion for ACS, PE, dissection, or intra-abdominal pathology. Unlikely CVA. Plan: EKG, labs, UA Patient refused CXR and Lyme testing Please refer to course for remaining medical decision making. Differential Diagnosis Differential Diagnoses: The differential diagnosis associated with the presentation includes Long-Covid, stroke, ME, viral pneumonia, Admission/Observation Consideration of admission/observation: Escalation of care including admission/observation considered Lab Data [facility] Lab Attestation statement: I reviewed the patient's lab results. 07/09/24 19:58 07/09/24 19:58 Labs: Lab Results 07/09/24 07/09/24 Range/Units 19:58 23:08 WBC 10.3 (4.8-10.8) X10*3/uL RBC 4.75 (4.20-5.50) X10*6/uL Hgb 14.1 (12.0-16.0) g/dl Hct 40.4 (37.0-47.0) % MCV 85.1 (80.0-98.0) fL MCH 29.7 (27.0-33.0) pg MCHC 34.9 (31.0-35.0) g/dl RDW 12.4 (11.0-16.0) % Plt Count 249 (160-400) X10*3/uL MPV 10.9 (9.4-12.3) fL Immature Gran % (Auto) 0.3 (0.0-0.4) % Neut % (Auto) 70.3 (45-73) % Lymph % (Auto) 19.5 L (20-40) % Centre % (Auto) 8.0 (2-11) % Eos % (Auto) 1.1 (0-4) % Baso % (Auto) 0.8 (0-2) % Lymph # (Auto) 2.0 (1.2-4.9) X10*3/uL Centre # (Auto) 0.8 (0.1-1.2) X10*3/uL Eos # (Auto) 0.1 (0.0-0.4) X10*3/uL Baso # (Auto) 0.1 (0.0-0.2) X10*3/uL Abs Immat Gran (auto) 0.03 (0.00-0.03) X10*3/uL Absolute Neuts (auto) 7.3 (2.0-8.3) x10*3/uL Absolute Nucleated RBC 0.000 (0.0-0.012) X10*3/uL Nucleated RBC % (auto) 0.0 (0.0-0.2) /100WBC Sodium 132 L (135-145) mmol/L Potassium 4.0 (3.3-5.1) mmol/L Chloride 101 (96-108) mmol/L Carbon Dioxide 22 (22-29) mmol/L Anion Gap 13 (12-20) BUN 11 (9-16) mg/dL Creatinine 0.79 (0.5-1.4) mg/dL Estim Creat Clear Calc 62.9 Estimated GFR > 60 Random Glucose 117 H (60-115) mg/dL Calcium 10.0 (8.4-10.2) mg/dL Magnesium 1.8 (1.6-2.6) mg/dL Total Bilirubin 0.4 (0.0-1.0) mg/dL AST 17 (5-31) U/L ALT 13 (0-31) U/L Alkaline Phosphatase 72 (39-117) U/L Troponin I High Sens < 2.7 (<3.5-17.0) ng/L Total Protein 6.9 (6.5-8.0) g/dL Albumin 4.2 (3.5-5.0) g/dL Lipase 34 (8-78) U/L Urine Color Yellow Urine Appearance Clear Urine pH 6.0 (5.0-9.0) Ur Specific [place] 1.010 (1.005-1.025) Urine Protein Negative (Neg-Trace) mg/dL Urine Glucose (UA) Negative (Negative) mg/dL Urine Ketones Trace (Negative) mg/dL Urine Blood Negative (Negative) Urine Nitrite Negative (Negative) Ur Leukocyte Esterase Small (1+) H (Negative) Urine RBC 0-2 (0-2) /HPF Urine WBC 6-10 H (0-5) /HPF Ur Squamous Epith Cells 0-2 (0-2) /HPF Urine Bacteria None Seen (None Seen) Hyaline Casts 0-2 (0-2) /LPF Influenza Type A (PCR) NEGATIVE (Negative) Influenza Type B (PCR) NEGATIVE (Negative) RSV RNA Qual (PCR) NEGATIVE (Negative) SARS-CoV-2 RNA (RT-PCR) NEGATIVE (Negative) Independent Interpretation I performed an independent interpretation of an: EKG Radiology Impression Discussion of test interpretation with radiology: I have reviewed the radiologist's reading. Independent Historian Clinical information obtained from an independent historian. History obtained from or confirmed by: Spouse External Record Review External record reviewed: Inpatient record, Office record, Outpatient record, Prior outpatient labs, Prior outpatient radiology, Primary care record and Outside ED record Tests considered The following testing was considered but not selected: As above Chronic Conditions Patient?s care impacted by: Other Discharge Plan Discharge Clinical Impression: Fatigue, Weight loss, Lightheadedness Patient Disposition: Home, Self-Care Instructions: Lightheadedness (ED), Fatigue (ED) Additional Instructions: Your blood work is reassuring. Your urine is pending you will be contacted if this is infected Please have close follow-up with her doctor. You should also follow-up with gastroenterology If her symptoms persist or worsen, your unable to eat or drink develop chest pain or shortness of breath or passing out return to the ED Prescriptions: No Action amlodipine 5 mg tablet 5 mg PO DAILY 90 Days Qty: 90 2RF lisinopril 20 mg tablet 20 mg PO DAILY 90 Days Qty: 90 2RF Lagevrio (EUA) 200 mg capsule 800 mg PO Q12H 5 Days Qty: 40 0RF calcium carbonate-vitamin D3 600 mg-10 mcg (400 unit) capsule PO docusate sodium [Colace] 100 mg capsule 100 mg PO DAILY ibuprofen 600 mg tablet 600 mg PO Q8H PRN ondansetron 4 mg tablet,disintegrating 4 mg PO DAILY PRN (Reason: nausea and vomiting) 10 Days Qty: 10 0RF Referrals: [facility] [place] [facility] [Provider Group] Paras Alicea MD [Primary Care Provider] - Interventions: ED Discharge Assessment Last Done: 07/09/24 23:44 Discharge Date/Time: 07/09/24 23:55 Print Language: German
[2024-07-09 18:45] VITALS: BP 110/69; PULSE 104; RESP 18; TEMP 36.6; O2SAT 97; BMI 25.2
--- NOTE | 2024-07-09 18:47 | ECG_ITS ---
Test Reason : WEAKNESS Blood Pressure : / mmHG Vent. Rate : 085 BPM Atrial Rate : 085 BPM P-R Int : 160 ms QRS Dur : 086 ms QT Int : 358 ms P-R-T Axes : 057 015 022 degrees QTc Int : 426 ms Normal sinus rhythm Low voltage QRS Septal infarct , age undetermined Abnormal ECG When compared with ECG of 28-FEB-2016 14:45, Septal infarct is now Present T wave inversion now evident in Anterior leads Referred By: Lashae Camejo Electronically Signed By:TIFFANIE PEREZ MD
--- NOTE | 2024-07-09 20:02 | MHC.EDTECH ---
PATIENT EKG TAKEN AND WAS READ BY PROVIDER ,BLOOD DRAWN AND RSV/COVID SWAB COLLECTED ALL SENT TO LAB .
[2024-07-09 20:03] LABS: MANUAL DIFF FLAG NO
[2024-07-09 20:05] LABS: Basophils Absolute Auto 0.1 X10*3/uL (0.0-0.2); Basophils Percent Auto 0.8 % (0-2); Eosinophils Absolute Auto 0.1 X10*3/uL (0.0-0.4); Eosinophils Percent Auto 1.1 % (0-4); Hematocrit 40.4 % (37.0-47.0); Hemoglobin 14.1 g/dl (12.0-16.0); Imm Gran Abs Auto 0.03 X10*3/uL (0.00-0.03); Imm Gran Pct Auto 0.3 % (0.0-0.4); Lymphocytes Percent Auto 19.5 % (20-40); Mean Corpuscular HGB Conc 34.9 g/dl (31.0-35.0); Mean Corpuscular Hemoglobin 29.7 pg (27.0-33.0); Mean Corpuscular Volume 85.1 fL (80.0-98.0); Mean Platelet Volume 10.9 fL (9.4-12.3); Monocytes Absolute Auto 0.8 X10*3/uL (0.1-1.2); Neutrophils Absolute Auto 7.3 x10*3/uL (2.0-8.3); Neutrophils Percent Auto 70.3 % (45-73); Platelet Count 249 X10*3/uL (160-400); Red Blood Count 4.75 X10*6/uL (4.20-5.50); Red Cell Distribution Width 12.4 % (11.0-16.0); White Blood Count 10.3 X10*3/uL (4.8-10.8)
[2024-07-09 20:22] VITALS: BP 140/75; PULSE 87; RESP 18; TEMP 36.5; O2SAT 98
[2024-07-09 20:24] LABS: Alanine Aminotransferase 13 U/L (0-31); Albumin Level 4.2 g/dL (3.5-5.0); Alkaline Phosphatase 72 U/L (39-117); Anion Gap 13 (12-20); Aspartate Amino Transferase 17 U/L (5-31); Bilirubin Total 0.4 mg/dL (0.0-1.0); Blood Urea Nitrogen 11 mg/dL (9-16); Carbon Dioxide 22 mmol/L (22-29); Chloride 101 mmol/L (96-108); Creatinine Clr Calc Pharmacy 62.9; Estimated Glomerular Filt Rate > 60; Glucose Random 117 mg/dL (60-115); Magnesium 1.8 mg/dL (1.6-2.6); Sodium 132 mmol/L (135-145); Total Protein 6.9 g/dL (6.5-8.0)
[2024-07-09 20:32] LABS: Troponin-I High Sensitivity < 2.7 ng/L (<3.5-17.0)
[2024-07-09 20:52] LABS: Influenza A PCR NEGATIVE (Negative); Influenza B PCR NEGATIVE (Negative); Resp Syncy Virus RNA Qual PCR NEGATIVE (Negative); SARS COV2 PCR INHOUSE NEGATIVE (Negative)
[2024-07-09 22:42] LABS: Lipase 34 U/L (8-78)
[2024-07-09 23:14] LABS: Appearance Urine Clear; Color Urine Yellow; Glucose Urine UA Negative (Negative); Leukocyte Esterase Urine Small (1+) (Negative); Nitrite Urine Negative (Negative); UMIC TRIGGER UACC YES; Urine Blood Negative (Negative); Urine Ketones Trace mg/dL (Negative); Urine Protein Negative (Neg-Trace)
[2024-07-09 23:18] LABS: Bacteria Urine None Seen (None Seen); Hyaline Casts Urine 0-2 /LPF (0-2); RBC Urine 0-2 /HPF (0-2); Squamous Epithelial Cell Urine 0-2 /HPF (0-2); UACC Culture Trigger YES
[2024-07-09 23:44] VITALS: BP 140/75; PULSE 87; RESP 18; TEMP 36.5; O2SAT 98
== END 2024-07-09 23:55 | disposition home or self-care (01) ==
PROVIDERS: Physician Assistant; Registered Nurse Emergency; Emergency Provider Emergency Medicine Emergency Medical Services; PCP Family Medicine
DX: R42 Dizziness and giddiness (principal); R53.83 Other fatigue; R53.1 Weakness; R63.4 Abnormal weight loss; Z68.25 Body mass index [BMI] 25.0-25.9, adult; R00.0 Tachycardia, unspecified; Z03.818 Encounter for observation for suspected exposure to other biological agents ruled out; I10 Essential (primary) hypertension; Z79.899 Other long term (current) drug therapy
CPT/HCPCS: 0241U; 80053; 81001; 83690; 83735; 84484; 85025; 87086; 93005; 99283; 99284

== ENCOUNTER → 2024-07-09 18:47 | Outpatient (BNV) | payer MEDICARE, SELFPAY | PROVIDERS: Emergency Provider Emergency Medicine Emergency Medical Services; PCP Family Medicine; Visit Provider Internal Medicine Cardiovascular Disease | DX: R94.31 Abnormal electrocardiogram [ECG] [EKG] (principal) | CPT/HCPCS: 93010 ==

== ENCOUNTER 2024-07-12 08:24 | Outpatient (AMB) | payer MEDICARE, SELFPAY ==
--- NOTE | 2024-07-12 08:32 | A.OFFPC_ITS ---
Vital Signs 07/12/24 08:36 Height 5 ft 6 in Weight 157 lb 4 oz BMI 25.4 BP 130/70 Blood Pressure Location Rt brachial Position Sitting Respiration 16 Pulse 90 Pulse Source Pulse Oximeter Temp 97.9 F Temp Source Tympanic Pulse Oximetry (%) 98 Oxygen Delivery Method Room Air Intake Visit Reasons: est/ weak/dizzy/rapid weightloss feeling terrible Intake Note: per patient she went to ed sat the dx her with uti and a cardiac problem. pt has been feeling weak,dizzy and nauseas and chest tightness Allergies oxycodone [From Percocet] Allergy (Mild, Verified 07/12/24 08:34) leaves her weepy, weird Tobacco use date assessed: 01/08/24 Dental Screening Dental Screen Date: 01/08/24 HPI est/ weak/dizzy/rapid weightloss feeling terrible HPI Details Seen?at?the?ED?on?June??with?fatigue Lab?work?essentially?unremarkable. Urine?with?elevated?white?blood?cell?activity?but?otherwise?negative Culture?is?negative?for?infection However,?EKG?at?emergency?department?shows?inverted?T-wave?in?anterior?leads?and ?appears?to?show?septal?infarct?compared?with?prior. Has?not?had?a?chest?x- ray.??Complete?workup?was?not?finished?as?patient?wanted?to?leave. Patient?did?have?COVID-19?infection?about?6?weeks?prior?and?had?had?complaints?f atigue?since?then. 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 Lyme disease HTN (hypertension) Surgical History H/O dilation and curettage Hx of tonsillectomy Social History Household Members: Spouse Housing: House Do you presently have visiting nurse or other home services: No Patient Tobacco Use Status: Never used Tobacco e-Cigarette/Vaping Use: Never Used Advance Directives Date on File: 07/19/21 service: No Current occupational status: employed 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 Melvin Benites, Ansley Howe, Brice Ward and colleagues, with an educational naman from [employer]. Review of Systems Const Reports anorexia, Denies chills, Reports fatigue, Denies fever(s), Denies headache(s) and Reports weakness ENT Denies dizziness and Denies headache(s) Card Denies chest pain, Denies lightheadedness, Denies dyspnea and Denies other (Palpitations) Resp Denies cough, Denies dyspnea, Denies wheezing and Denies other ( shortness of breath) Musc Denies numbness and Denies tingling Neuro Denies dizziness, Denies headache(s), Denies numbness, Denies tingling, Denies paresthesias and Reports weakness Psych Denies anxiety and Denies depression Endo Reports fatigue Aller/Immun Denies wheezing Physical exam (Primary Care) Vital Signs: Last Vital Signs Temp 97.9 F 07/12/24 08:36 Pulse 90 07/12/24 08:36 Resp 16 07/12/24 08:36 BP 130/70 07/12/24 08:36 Pulse Ox 98 07/12/24 08:36 Oxygen Delivery Method Room Air 07/12/24 08:36 BMI result Body Mass Index 25.4 Tobacco/Smoking Status: Tobacco use Status Tobacco use date assessed 01/08/24 07/12/24 08:38 Patient Tobacco Use Status Never used Tobacco 07/12/24 08:38 e-Cigarette/Vaping Use Never Used 07/12/24 08:38 Thrive Assessment: Date of Thrive Assessment Date Thrive assessed 01/08/24 07/12/24 08:38 Const General: no acute distress and well developed Nutritional Appearance: well nourished Orientation/consciousness: patient oriented x3 HENMT Head: Yes normocephalic and Yes atraumatic Eyes General: appearance normal, both eyes and all related structures Pupils: Equal, round and reactive pupils present EOM: EOMs intact bilaterally Resp Effort & Inspection: normal respiratory effort Auscultation: clear to auscultation bilaterally Cardio Rate: regular rate Rhythm: regular rhythm Heart sounds: S1 normal heart sound present, S2 normal heart sound present, no gallops, no murmurs and no rubs Neuro General: patient oriented x3 and gait normal Cranial nerves: Yes Equal, round and reactive pupils present Psych Affect: normal affect Assessment and Plan Assessment & Plan (1) Fatigue: Code(s): R53.83 - Other fatigue Plan: Ongoing?and?worsening?fatigue which?began?about?7?w eeks?ago.??Patient?notes?that?she?had?tested?positive?for?COVID- 19?around?that?time. Recent?ED?visit?with?EKG?showing?new?septal?infarction?compared?with?prior?EKG. EKG?in?office?today: ?Normal?sinus ?rhythm,?normal?axis,?no?hypertrophy,?inverted?T-waves?in?septal/anterior?leads. ??No?Q-waves. Reviewed?labs?with?patient.??White?count?is?normal.??Urine?shows?no?bacteria,?no ?nitrites?and?no?blood.?? Some?white?blood?cell?activity?but?culture?is?also?negative. No?evidence?of?infection?in?lab?work?or?urine?studies. She?can?discontinue?antibiotic Will?repeat?labs?including?troponin?level,?BNP,?CBC.??Will?also?check?thyroid. Will?check?chest?x-ray Will?get?echocardiogram?and?I?am?referring?her?to?Cardiology. Patient?was?advised?to?go?to?the?ED?if?she?is?having?any?worsening?fatigue,?shor tness? of?breath,?dizziness,?diaphoresis?or?chest?pain.??Or?for?any?new?concerning?symp toms. (2) Unintentional weight loss: Code(s): R63.4 - Abnormal weight loss Plan: Patient?has?had?greater?than?20?lb?weight?loss?though?most?recently?this?seems?t o?have?leveled?off - according?to?patient?she?c ontinues?to?lose?weight?on?her?scale?however. She?was?referred?to?Gastroenterology?by?the?emergency?department - I?do?not?see?this?referral I?will?make?referral?to?gastroenterology?at?[facility] [place] Orders: Orders AMB EKG-In Office Today R53.83 - Other fatigue B Type Natriuretic Peptide Today I50.9 - Heart failure, unspecified, R53.83 - Other fatigue Complete Blood Count Auto Diff Today R53.83 - Other fatigue, Z00.00 - Encounter for general adult medical examination without abnormal findings UA and rflx microscopic Today R53.83 - Other fatigue, Z00.00 - Encounter for general adult medical examination without abnormal findings Troponin-I High Sensitivity Today R53.83 - Other fatigue CA echo transthoracic complete Today I21.9 - Acute myocardial infarction, unspecified, R53.83 - Other fatigue XR chest 2V Today R53.83 - Other fatigue Comprehensive Met. Panel Today R53.83 - Other fatigue TSH reflex Free T4 Today R53.83 - Other fatigue, Z00.00 - Encounter for general adult medical examination without abnormal findings Lyme IgG/IgM w/reflex to WB Today R53.83 - Other fatigue Referrals Cardiology Referral I21.9 - Acute myocardial infarction, unspecified, R53.83 - Other fatigue Gastroenterology Referral R63.4 - Abnormal weight loss Medications: Discontinued cefuroxime axetil Discontinued Reason: Doctor's Order 250 mg PO BID 7 days 14 tabs 0RF Coding Level of Care Code Est Pt Level 3 (33162) Diagnoses Fatigue R53.83 Unintentional weight loss R63.4
[2024-07-12 08:36] VITALS: BP 130/70; PULSE 90; RESP 16; TEMP 36.6; O2SAT 98; BMI 25.4
== END 2024-07-12 09:39 | disposition home or self-care (01) ==
PROVIDERS: PCP Family Medicine; Visit Provider Family Medicine
DX: R53.83 Other fatigue (principal); R63.4 Abnormal weight loss
CPT/HCPCS: 99213

== ENCOUNTER 2024-07-12 09:49 | Outpatient (REF) | payer MEDICARE, SELFPAY ==
[2024-07-12 11:27] LABS: Appearance Urine Clear; Color Urine Yellow; Glucose Urine UA Negative (Negative); Leukocyte Esterase Urine Small (1+) (Negative); Nitrite Urine Negative (Negative); PH 5.5 (5.0-9.0); UMIC TRIGGER UA YES; Urine Blood Negative (Negative); Urine Ketones 15 mg/dL (Negative); Urine Protein 30 (1+) mg/dL (Neg-Trace)
[2024-07-12 11:40] LABS: Bacteria Urine None Seen (None Seen); Hyaline Casts Urine 0-2 /LPF (0-2); RBC Urine 0-2 /HPF (0-2)
[2024-07-12 11:53] LABS: MANUAL DIFF FLAG NO
[2024-07-12 12:00] LABS: Basophils Absolute Auto 0.1 X10*3/uL (0.0-0.2); Basophils Percent Auto 0.8 % (0-2); Eosinophils Absolute Auto 0.1 X10*3/uL (0.0-0.4); Eosinophils Percent Auto 0.9 % (0-4); Hematocrit 42.8 % (37.0-47.0); Hemoglobin 14.3 g/dl (12.0-16.0); Imm Gran Abs Auto 0.04 X10*3/uL (0.00-0.03); Imm Gran Pct Auto 0.5 % (0.0-0.4); Lymphocytes Absolute Auto 1.7 X10*3/uL (1.2-4.9); Lymphocytes Percent Auto 18.7 % (20-40); Mean Corpuscular HGB Conc 33.4 g/dl (31.0-35.0); Mean Corpuscular Hemoglobin 28.9 pg (27.0-33.0); Mean Corpuscular Volume 86.6 fL (80.0-98.0); Mean Platelet Volume 12.3 fL (9.4-12.3); Monocytes Absolute Auto 0.8 X10*3/uL (0.1-1.2); Monocytes Percent Auto 8.5 % (2-11); Neutrophils Absolute Auto 6.2 x10*3/uL (2.0-8.3); Neutrophils Percent Auto 70.6 % (45-73); Platelet Count 289 X10*3/uL (160-400); Red Blood Count 4.94 X10*6/uL (4.20-5.50); Red Cell Distribution Width 12.6 % (11.0-16.0); White Blood Count 8.8 X10*3/uL (4.8-10.8)
[2024-07-12 12:29] LABS: Alanine Aminotransferase 12 U/L (0-31); Albumin Level 4.3 g/dL (3.5-5.0); Alkaline Phosphatase 70 U/L (39-117); Anion Gap 11 (12-20); Aspartate Amino Transferase 16 U/L (5-31); Bilirubin Total 0.5 mg/dL (0.0-1.0); Blood Urea Nitrogen 10 mg/dL (9-16); Calcium 9.6 mg/dL (8.4-10.2); Carbon Dioxide 26 mmol/L (22-29); Chloride 99 mmol/L (96-108); Estimated Glomerular Filt Rate > 60; Glucose Random 108 mg/dL (60-115); Potassium 3.8 mmol/L (3.3-5.1); Sodium 132 mmol/L (135-145)
[2024-07-12 12:39] LABS: Troponin-I High Sensitivity < 2.7 ng/L (<3.5-17.0)
[2024-07-12 12:44] LABS: B Type Natriuretic Peptide 12 pg/mL (<100)
[2024-07-12 12:48] LABS: TSH reflex Free T4 1.04 uIU/mL (0.32-4.0)
[2024-07-13 08:23] LABS: Lyme Abs Screen <0.90 index
== END 2024-07-12 09:50 | disposition home or self-care (01) ==
LOC: HO.WFDLDS 09:49
PROVIDERS: Visit Provider Family Medicine
DX: Z13.89 Encounter for screening for other disorder (principal)
CPT/HCPCS: 36415; 80053; 81001; 83880; 84443; 84484; 85025; 86617; 86618

== ENCOUNTER 2024-07-12 10:34 | Outpatient (REF) | payer MEDICARE, SELFPAY ==
--- NOTE | ~2024-07-12 | XR_ITS ---
EXAMINATION: XR CHEST CLINICAL INFORMATION: Cough and fatigue for 6 weeks COMPARISON: 02/28/2016 TECHNIQUE: 2 views of the chest were obtained. FINDINGS: Heart, mediastinum and vascularity within normal limits. No consolidations or effusions. Bony structures are intact. XR/XR chest 2V IMPRESSION: No acute cardiopulmonary disease.
== END 2024-07-12 10:35 | disposition home or self-care (01) ==
LOC: HO.XRAY 10:34
PROVIDERS: PCP Family Medicine; Visit Provider Family Medicine
DX: R53.83 Other fatigue (principal); R63.4 Abnormal weight loss; I50.9 Heart failure, unspecified; Z00.00 Encounter for general adult medical examination without abnormal findings
CPT/HCPCS: 36415; 71046; 80053; 81001; 83880; 84443; 84484; 85025; 86617; 86618

== ENCOUNTER 2024-07-13 08:17 | Outpatient (AMB) | payer MEDICARE, SELFPAY ==
--- NOTE | 2024-07-13 08:36 | A.OFFPC_ITS ---
Vital Signs 07/13/24 08:37 Height 5 ft 6 in Weight 155 lb 6 oz BMI 25.1 BP 110/60 Blood Pressure Location Rt brachial Position Sitting Respiration 16 Pulse 94 Pulse Source Pulse Oximeter Temp 98 F Temp Source Tympanic Pulse Oximetry (%) 98 Oxygen Delivery Method Room Air Intake Visit Reasons: fu ekg,uti and weakness Intake Note: follow up for ekg,uti/ weakness Allergies oxycodone [From Percocet] Allergy (Mild, Verified 07/13/24 08:36) leaves her weshannony, eugeniord Tobacco use date assessed: 01/08/24 Dental Screening Dental Screen Date: 01/08/24 HPI fu ekg,uti and weakness HPI Details 69 y/o female presents to f/u ekg, uti a nd weakness. Had ongoing/worsening fatigue which began about 7 weeks ago. Had noted she tested positive for covid-19 around that time. Recent ED visit with EKG showing new septal infarction compared with prior EKG. Labs drawn 07/12/24. Blood count was fine. Sodium mildly low at 132 mmol/L. Rest of the labs were fine. Chest x-ray 07/12/24 was fine. 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 Lyme disease HTN (hypertension) Surgical History H/O dilation and curettage Hx of tonsillectomy Social History Household Members: Spouse Housing: House Do you presently have visiting nurse or other home services: No Patient Tobacco Use Status: Never used Tobacco e-Cigarette/Vaping Use: Never Used Advance Directives Date on File: 07/19/21 service: No Current occupational status: employed 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 Melvin Benites, Ansley Howe, Brice Ward and colleagues, with an educational naman from [employer]. Review of Systems Const Reports fatigue, Denies headache(s) and Denies weakness ENT Denies dizziness and Denies headache(s) Card Denies dyspnea Resp Denies cough, Denies dyspnea, Denies wheezing and Denies other (shortness of breath) Musc Denies numbness and Denies tingling Neuro Denies dizziness, Denies headache(s), Denies numbness, Denies tingling and Denies weakness Psych Denies anxiety and Denies depression Endo Reports fatigue Aller/Immun Denies wheezing Physical exam (Primary Care) Vital Signs: Last Vital Signs Temp 98 F 07/13/24 08:37 Pulse 94 07/13/24 08:37 Resp 16 07/13/24 08:37 BP 110/60 07/13/24 08:37 Pulse Ox 98 07/13/24 08:37 Oxygen Delivery Method Room Air 07/13/24 08:37 BMI result Body Mass Index 25.1 Tobacco/Smoking Status: Tobacco use Status Tobacco use date assessed 01/08/24 07/13/24 08:41 Patient Tobacco Use Status Never used Tobacco 07/13/24 08:41 e-Cigarette/Vaping Use Never Used 07/13/24 08:41 Thrive Assessment: Date of Thrive Assessment Date Thrive assessed 01/08/24 07/13/24 08:41 Const General: well developed; No acute distress Nutritional Appearance: well nourished Orientation/consciousness: patient oriented x3 HENMT Head: Yes normocephalic and Yes atraumatic Eyes General: appearance normal, both eyes and all related structures Pupils: Equal, round and reactive pupils present EOM: EOMs intact bilaterally Resp Effort & Inspection: normal respiratory effort Auscultation: clear to auscultation bilaterally Cardio Rate: regular rate Rhythm: regular rhythm Heart sounds: S1 normal heart sound present, S2 normal heart sound present, no gallops, no murmurs and no rubs Neuro General: patient oriented x3 and gait normal Cranial nerves: Yes Equal, round and reactive pupils present Psych Affect: normal affect Assessment and Plan Assessment & Plan (1) Fatigue: Code(s): R53.83 - Other fatigue Plan: Ongoing?fatigue Recent?ED?visit?had?EKG?showing?an?old?septal?infarct,?but?new?compared?with?charlie or?EKG?from?January. Brief?correspondence?with?Cardiology;?they?did?not?feel?that?the?EKG?explained?h er?fatigue. Chest?x-ray?was?negative Additional?lab?work?is?negative?including?thyroid,?BNP?and?repeat?troponin?level s.??CBC?unremarkable?as?well. She?had?had?urine?studies?with?some?increased?white?blood?cell?act ivity?but?the?urine?culture?was?negative I?have?ordered?an?echocardiogram?and?made?a?referral?to?Cardiology. However, we?discussed?that?I?am?not?convinced?that?her?fatigue?is?due?to?a?cardiac?etiolo gy. Discussed?her?sleep?which?is?frequently?interrupted.??Discussed?referral?to?slee p?Medicine?but?patient?declines?this?for?now. Advised?she?try?sleeping?on?side?and?not?her?back?to?see?if?this?improv es?the?quality?of?her?sleep.??Will?also?give?her?a?stomach?acid?rodeo rider?for?the? next?2?weeks?as? she?wakes?up?with?poor?appetite?and?some?nausea and?has?had?unintentional?weight?loss.??She?also?has?a? referral?with?gastroenterology. Has?follow-up?with?me?in?a?little?over?2?weeks (2) Unintentional weight loss: Code(s): R63.4 - Abnormal weight loss Plan: Continuing?to?monitor?weight?loss. Has?referral?to?gastroenterology Medications: New famotidine 40 mg PO BEDTIME 14 days 14 tabs 0RF Coding Level of Care Code Est Pt Level 3 (30734) Diagnoses Fatigue R53.83 Unintentional weight loss R63.4
[2024-07-13 08:37] VITALS: BP 110/60; PULSE 94; RESP 16; TEMP 36.6; O2SAT 98; BMI 25.1
== END 2024-07-13 09:50 | disposition home or self-care (01) ==
PROVIDERS: PCP Family Medicine; Visit Provider Family Medicine
DX: R53.83 Other fatigue (principal); R63.4 Abnormal weight loss
CPT/HCPCS: 99213

== ENCOUNTER → 2024-07-14 13:38 | Outpatient (REF) | payer MEDICARE, SELFPAY ==
--- NOTE | 2024-07-14 13:41 | CA_ITS ---
Transthoracic Echocardiogram Patient (Last, First, Middle): Angelika Wang, Gender: Female Date of : 1955 Age: 69 Procedure Date: 07/14/2024 Procedure Type: Transthoracic Echocardiogram Location: OP Height: 167.64 cm Weight: 68.49 kg BSA: 1.77 m2 Heart Rate: 80 bpm BP: 105 / 65 mmHg Nursing Home Manager: CHACORTA Referring MD: Paras Alicea MD Symptoms: R53.83 - Other fatigue Study Quality: Fair w/Contrast ECG Rhythm: Sinus Conclusions: - The left ventricular systolic function is normal. The calculated ejection fraction is 58% by biplane method. - Possible basal inferior hypokinesis. - No obvious valvular pathology seen on this study. Findings Procedure Information Contrast agent, definity, is being given per protocol without apparent complications. Left Ventricle Normal left ventricular cavity size. There is mildly increased left ventricular wall thickness. The left ventricular systolic function is normal. The calculated ejection fraction is 58% by biplane method. Diastolic function is normal for age. Possible basal inferior hypokinesis. Right Ventricle Normal right ventricular cavity size and systolic function. Atria Both atria are normal in size. Aortic Valve There is a normal trileaflet aortic valve. There is mild calcification of the aortic valve. There is no aortic valve stenosis. Mitral Valve There is mild mitral annular calcification. There is no mitral valve regurgitation. There is no mitral valve stenosis. Pulmonic Valve The pulmonic valve is likely normal. Tricuspid Valve There is trace tricuspid valve regurgitation. There is no evidence of pulmonary hypertension. Great Vessels Top normal ascending aortic size at 3.8 cm. Venous The inferior vena cava is normal in size and collapses greater than 50% with inspiration. Pericardium/Pleural There is no evidence of pericardial effusion. Prior Study Comparison No prior study available for comparison. Recommendations, Care & Conclusions No obvious valvular pathology seen on this study. Measurements 2D Linear Measurements IVSd: 1.16 0.6-0.9/0.6-1.0 cm LVIDd: 4.04 3.9-5.3/4.2-5.9 cm LVIDd Index: 2.28 2.4-3.2/2.2-3.1 cm/m2 LVIDs: 1.99 2.0-3.6 cm LVPWd: 1.07 0.7-1.1 cm LA Diam: 2.80 2.7-3.8/3.0-4.0 cm LAIDs Index: 1.58 1.5-2.3 cm/m2 LV Mass: 187.77 67-162/88-224 g LV Mass Index: 106.09 43-95/49-115 g/m2 LVOT Diam: 1.90 3.0+(-)1.3 cm 2D Systolic Function EF 4C: 51.50 >55% EF 2C: 64.80 >55% EF BiP: 58.10 >55% Mitral Valve MV Pk E: 0.62 MV PK A: 0.80 MV Decel Time: 228.00 E/A: 0.80 E'Lateral: 7.51 E'Medial: 6.53 E/E' Med: 9.60 E/E' Lat: 8.30 PHT: 67.00 MVA PHT: 3.28 Decel [place]: 2.73 Aortic Valve AoV Pk Bucky: 1.23 AoV Mn Bucky: 0.80 AoV VTI: 0.21 AoV Pk Grad: 6.00 Aov Mn Grad: 3.00 KIMBERLY Cont.VTI: 2.18 LVOT LVOT Pk Bucky: 0.97 LVOT Mn Bucky: 0.62 LVOT VTI: 0.16 LVOT Pk Grad: 4.00 LVOT Mn Grad: 2.00 LVOT Diam: 1.90 LVOT Area: 2.84 Diastolic Function MV Pk E: 0.62 MV Pk A: 0.80 E/A: 0.80 E'Medial: 6.53 E/E' Med: 9.60 E' Laterial: 7.51 E/E' Lat: 8.30 Right Ventricle TAPSE (mm): 22.00 TVS' Bucky: 11.30 Tricuspid Valve TR Pk Bucky: 1.77 TR Pk Grad: 13.00 RA Press: 3.00 RVSP: 16.00 Great Vessels Aorta Sinus of Valsalva: 3.40 2.0-3.5 cm Ao Asc: 3.70 2.1-3.4 cm Ao Arch: 2.60 Pulmonary Valve PV Pk Bucky: 0.88 Peak PV Grad: 3.00 Updated in Other Vendor System with Status of Final Jesus Dean MD electronically signed on 07/16/2024 1:28:27 PM with status of Final
== END ==
LOC: HO.CARD 13:38
PROVIDERS: PCP Family Medicine; Visit Provider Family Medicine
DX: R53.83 Other fatigue (principal); I21.9 Acute myocardial infarction, unspecified
CPT/HCPCS: 93306; Q9957

== ENCOUNTER → 2024-07-14 13:41 | Outpatient (BNV) | payer MEDICARE, SELFPAY | PROVIDERS: PCP Family Medicine; Visit Provider Internal Medicine | DX: I35.8 Other nonrheumatic aortic valve disorders (principal); I34.81 Nonrheumatic mitral (valve) annulus calcification | CPT/HCPCS: 93306 ==

== ENCOUNTER 2024-07-27 10:07 | Outpatient (AMB) | payer MEDICARE, SELFPAY ==
[2024-07-27 10:11] VITALS: BP 106/58; PULSE 95; BMI 25.0
--- NOTE | 2024-07-27 10:11 | A.OFFVIS_ITS ---
Vital Signs 07/27/24 10:11 Height 5 ft 6 in Weight 155 lb 3.287 oz BMI 25.0 BP 106/58 L Blood Pressure Location Lt brachial Position Sitting Pulse 95 Pulse Source Pulse Oximeter Intake Visit Reasons: ENGINE PILOT. Nixon/ fatigue/ ? old VT (pt unaware) Tag Stringer Required: No Accompanied by: Spouse Allergies oxycodone [From Percocet] Allergy (Mild, Verified 07/13/24 08:36) leaves her weemily ciarra Medication List - Last Reconciled 07/27/24 by Jesus Dean MD amlodipine 5 mg PO DAILY 90 days calcium carbonate-vitamin D3 600 mg-10 mcg (400 unit) caps PO docusate sodium (Colace) 100 mg PO DAILY ibuprofen 600 mg PO Q8H PRN lisinopril 20 mg PO DAILY 90 days HPI Comments Details: Angelika is here for consultation regarding fatigue. She states that recently she has been noticing lot of fatigue and exhaustion. She can walk several miles a day but more recently she could only walk a much shorter distance as she is feeling exhausted. No clear anginal-type chest pains but she has had a couple of heartburn type episodes that resolved with antacids several months ago. No other definitive cardiac symptoms. No known coronary disease or myocardial infarction or cardiomyopathy. She has also been losing weight unintentionally. 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 Lyme disease HTN (hypertension) Surgical History H/O dilation and curettage Hx of tonsillectomy Family History (Updated 07/27/24 @ 10:18 by Marnie Manzo CMA) Mother CHF (congestive heart failure) Dementia Type 2 diabetes mellitus Father Heart attack Prostate cancer Sister Pancreatic cancer Brother Prostate cancer Social History (Updated 07/27/24 @ 10:19 by Marnie Manzo CMA) Household Members: Spouse Housing: House Do you presently have visiting nurse or other home services: No Alcohol intake: current Comment: rare Patient Tobacco Use Status: Never used Tobacco e-Cigarette/Vaping Use: Never Used Advance Directives Date on File: 07/19/21 service: No Current occupational status: employed 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 needs: No Hearing needs: No Vision needs: Yes (patient wears glasses) Review of Systems Const Denies chills, Denies daytime sleepiness, Denies fatigue, Denies fever(s), Denies poor appetite, Denies snoring, Denies stops breathing during sleep, Denies weakness, Denies weight gain and Denies weight loss Eyes Denies loss of vision ENT Denies dizziness and Denies hearing loss Card Denies chest pain, Denies irregular heart rhythm, Denies claudication, Denies leg edema, Denies lightheadedness, Denies palpitations, Denies dyspnea on exertion and Denies orthopnea Resp Denies cough, Denies excessive phlegm production, Denies dyspnea on exertion, Denies snoring and Denies wheezing GI Denies abdominal pain, Denies hematochezia, Denies change in bowel habits, Denies nausea and Denies vomiting Denies urinary frequency and Denies dysuria Musc Denies arthralgias, Denies muscle weakness, Denies numbness and Denies other Skin/Breast Denies nail changes and Denies rash Neuro Denies Abnormal speech present, Denies dizziness, Denies loss of vision, Denies memory loss, Denies numbness and Denies weakness Psych Denies depression and Denies memory loss Endo Denies fatigue and Denies palpitations Vidal/Lymph Denies easy bruising Aller/Immun Denies wheezing Physical Exam Vital Signs: Last Vital Signs Pulse 95 07/27/24 10:11 BP 106/58 L 07/27/24 10:11 BMI result Body Mass Index 25.0 Const General: comfortable and no acute distress Orientation/consciousness: patient oriented x3 HEENT Other: Unremarkable Head: Yes normal to inspection Neck Neck: Yes normal visual inspection Chest Chest palpation & inspection: normal inspection of the chest Resp Auscultation: clear to auscultation bilaterally Cardio Palpation: normal PMI Heart sounds: S1 normal heart sound present, S2 normal heart sound present, no gallops, no murmurs and no rubs GI Palpation (GI): Soft to palpation Back/Spine/Pelvis Other: unremarkable Skin General skin exam: no rashes or lesions noted Neuro General: patient oriented x3 Speech: No Abnormal speech present Extrem General: Yes normal to inspection Psych Mental Status: mental status grossly normal Assessment & Plan Assessment & Plan (1) Fatigue: Code(s): R53.83 - Other fatigue Category: Medical (2) Unintentional weight loss: Code(s): R63.4 - Abnormal weight loss Category: Medical (3) Abnormal echocardiogram: Code(s): R93.1 - Abnormal findings on diagnostic imaging of heart and coronary circulation Category: Medical (4) HTN (hypertension): Code(s): I10 - Essential (primary) hypertension Category: Medical Plan EKG shows underlying sinus rhythm at 85/Min; can not exclude old septal infarct but could be from body habitus; normal [place] and corrected QT. nonspecific ST-T changes. However, there is another EKG done in the office which looks different showing sinus rhythm but not the findings of septal infarct as above. Nonspecific ST-T changes are also not obvious. In the echocardiogram, normal LVEF, 58%. Possible basal inferior hypokinesis but otherwise unremarkable. Overall, fatigue, unintentional weight loss, EKG/echo as above. Work this up further with an exercise stress perfusion imaging study, but doubt any clear-cut cardiac etiology for her symptoms. Blood pressure is stable on the current regimen she is on lisinopril/amlodipine. Orders: Orders CA stress test Today R07.2 - Precordial pain NM cardiolite stress test Today R07.2 - Precordial pain Coding Level of Care Code New Pt Level 4 (53812) Diagnoses Fatigue R53.83 Unintentional weight loss R63.4 Abnormal echocardiogram R93.1 HTN (hypertension) I10
== END 2024-07-27 10:48 | disposition home or self-care (01) ==
PROVIDERS: PCP Family Medicine; Visit Provider Internal Medicine
DX: I10 Essential (primary) hypertension (principal); R93.1 Abnormal findings on diagnostic imaging of heart and coronary circulation; R53.83 Other fatigue; R63.4 Abnormal weight loss
CPT/HCPCS: 99214

== ENCOUNTER → 2024-07-27 10:07 | Outpatient (BNVA) | payer MEDICARE, SELFPAY | PROVIDERS: PCP Family Medicine; Visit Provider Internal Medicine | DX: I10 Essential (primary) hypertension (principal); R07.2 Precordial pain; R53.83 Other fatigue; R63.4 Abnormal weight loss; R93.1 Abnormal findings on diagnostic imaging of heart and coronary circulation | CPT/HCPCS: 99212 ==

== ENCOUNTER 2024-08-03 14:25 | Outpatient (AMB) | payer MEDICARE, SELFPAY ==
--- NOTE | 2024-08-03 14:33 | A.OFFPC_ITS ---
Vital Signs 08/03/24 14:36 Height 5 ft 6 in Weight 155 lb 4 oz BMI 25.1 BP 118/60 Blood Pressure Location Rt brachial Position Sitting Respiration 16 Pulse 92 Pulse Source Pulse Oximeter Temp 97.5 F Temp Source Tympanic Pulse Oximetry (%) 99 Oxygen Delivery Method Room Air Intake Visit Reasons: F/U follow-up on issues discussed in a/P Intake Note: follow up Allergies oxycodone [From Percocet] Allergy (Mild, Verified 08/03/24 14:34) leaves her juan carlos ciarra Medication List - Last Reconciled 08/03/24 by Paras Alicea MD amlodipine 5 mg PO DAILY 90 days calcium carbonate-vitamin D3 600 mg-10 mcg (400 unit) caps PO docusate sodium (Colace) 100 mg PO DAILY ibuprofen 600 mg PO Q8H PRN lisinopril 20 mg PO DAILY 90 days Tobacco use date assessed: 01/08/24 Dental Screening Dental Screen Date: 01/08/24 HPI F/U follow-up on issues discussed in a/P HPI Details 69 y/o female presents to f/u fatigue. Had ordered an echocardiogram and made referral to Cardiology. Had discussed referral to sleep medicine but pt declines this. Had seen Cardiology 07/27/24. They ordered a CA stress test but they doubt any clear-cut cardiac etiology for her symptoms. Pt notes overall she has been feeling better with regards to fatigue. She notes ongoing lightheadedness. Blood pressure today 118/60. HPI Comments History of Present Illness Details Documentation assistance for Paras Alicea MD, was provided by Miguel Clay, [employer] on 08/03/2024 at 3:06 PM EST. I, Dr. Alicea, have read, observed, and verified documentation. 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 Lyme disease HTN (hypertension) Surgical History H/O dilation and curettage Hx of tonsillectomy Family History (Updated 07/27/24 @ 10:18 by Marnie Manzo CMA) Mother CHF (congestive heart failure) Dementia Type 2 diabetes mellitus Father Heart attack Prostate cancer Sister Pancreatic cancer Brother Prostate cancer Social History (Updated 07/27/24 @ 10:19 by Marnie Manzo CMA) Household Members: Spouse Housing: House Do you presently have visiting nurse or other home services: No Alcohol intake: current Comment: rare Patient Tobacco Use Status: Never used Tobacco e-Cigarette/Vaping Use: Never Used Advance Directives Date on File: 07/19/21 service: No Current occupational status: employed 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 Melvin Benites, Ansley Howe, Brice Ward and colleagues, with an educational naman from [employer]. Review of Systems Const Denies chills, Denies fatigue, Denies fever(s), Denies headache(s) and Denies weakness ENT Denies dizziness and Denies headache(s) Card Denies chest pain, Denies lightheadedness, Denies dyspnea and Denies other (Palpitations) Resp Denies cough, Denies dyspnea, Denies wheezing and Denies other ( shortness of breath) Musc Denies numbness and Denies tingling Neuro Denies dizziness, Denies headache(s), Denies numbness, Denies tingling, Denies paresthesias and Denies weakness Psych Denies anxiety and Denies depression Endo Denies fatigue Aller/Immun Denies wheezing Physical exam (Primary Care) Vital Signs: Last Vital Signs Temp 97.5 F 08/03/24 14:36 Pulse 92 08/03/24 14:36 Resp 16 08/03/24 14:36 BP 118/60 08/03/24 14:36 Pulse Ox 99 08/03/24 14:36 Oxygen Delivery Method Room Air 08/03/24 14:36 BMI result Body Mass Index 25.1 Tobacco/Smoking Status: Tobacco use Status Tobacco use date assessed 01/08/24 08/03/24 14:34 Patient Tobacco Use Status Never used Tobacco 08/03/24 14:34 e-Cigarette/Vaping Use Never Used 08/03/24 14:34 Thrive Assessment: Date of Thrive Assessment Date Thrive assessed 01/08/24 08/03/24 14:34 Const General: no acute distress and well developed Nutritional Appearance: well nourished Orientation/consciousness: patient oriented x3 HENMT Head: Yes normocephalic and Yes atraumatic Eyes General: appearance normal, both eyes and all related structures Pupils: Equal, round and reactive pupils present EOM: EOMs intact bilaterally Resp Effort & Inspection: normal respiratory effort Auscultation: clear to auscultation bilaterally Cardio Rate: regular rate Rhythm: regular rhythm Heart sounds: S1 normal heart sound present, S2 normal heart sound present, no gallops, no murmurs and no rubs Neuro General: patient oriented x3 and gait normal Cranial nerves: Yes Equal, round and reactive pupils present Psych Affect: normal affect Assessment and Plan Assessment & Plan (1) Fatigue: Code(s): R53.83 - Other fatigue Plan: Ongoing?fatigue?which?is?improving. She?wonders?if?this?may?have?been?a?form?of?long?COVID Cardiac?workup?so?far?has?shown?incidental?findings?and?she?has?a nuclear?Myoview?perfusion?scan?schedule?but?cardiology?does?not?feel?that her?cardiac?findings?are?the?cause?of?her?fatigue?and?I?agree?with?this. Advised?she?should? follow-up?with?Cardiology?and?she?is?already?walking?and?getting?exercise.??Stop ?if?you?have?any?problems.??Once?stress?test?is?complete?and?if?no?contraindicat ions,?I?have?encouraged?additional?exercise?as?tolerated. (2) HTN (hypertension): Code(s): I10 - Essential (primary) hypertension Plan: Blood?pressure?is?controlled.??Goal?is?less?than?130/80 Continue?current?medication Coding Level of Care Code Est Pt Level 3 (47115) Diagnoses Fatigue R53.83 HTN (hypertension) I10
[2024-08-03 14:36] VITALS: BP 118/60; PULSE 92; RESP 16; TEMP 36.4; O2SAT 99; BMI 25.1
== END 2024-08-03 15:08 | disposition home or self-care (01) ==
PROVIDERS: PCP Family Medicine; Visit Provider Family Medicine
DX: R53.83 Other fatigue (principal); I10 Essential (primary) hypertension
CPT/HCPCS: 99213

== ENCOUNTER 2024-08-12 07:40 | Outpatient (REF) | payer MEDICARE, SELFPAY ==
--- NOTE | ~2024-08-12 | MM_ITS ---
EXAMINATION: MM SCREENING DIGITAL BREAST TOMOSYNTHESIS, BILATERAL CLINICAL INFORMATION: Screening. Asymptomatic. COMPARISON: Mammography: Comparison is made with available priors TECHNIQUE: Digital breast mammography with tomosynthesis is performed in both the craniocaudal and mediolateral oblique views along with computer-aided detection (CAD). FINDINGS: There are scattered areas of fibroglandular density (ACR BI-RADS breast composition Category b). There are no significant masses, abnormal calcifications, or other abnormalities. MM/MM tomosynthesis screening BI IMPRESSION: No mammographic evidence of malignancy. ASSESSMENT: BI-RADS BI-RADS 1 - Negative RECOMMENDATION: Routine annual mammography screening. 1 year F/U This examination should not preclude the clinical evaluation of a suspicious palpable abnormality. This patient's information was entered into a reminder system with a target due date for their next mammogram. Electronically signed by: Riddhi aBll DO 08/25/2024 08:07 PM EDT
== END 2024-08-12 07:41 | disposition home or self-care (01) ==
LOC: HO.MAMMO 07:40
PROVIDERS: PCP Family Medicine; Visit Provider Family Medicine
DX: Z12.31 Encounter for screening mammogram for malignant neoplasm of breast (principal)
CPT/HCPCS: 77063; 77067

== ENCOUNTER → 2024-08-12 08:00 | Outpatient (BNV) | payer MEDICARE, SELFPAY | PROVIDERS: PCP Family Medicine; Visit Provider Internal Medicine | DX: Z12.31 Encounter for screening mammogram for malignant neoplasm of breast (principal) | CPT/HCPCS: 77063; 77067 ==

== ENCOUNTER 2024-08-15 15:32 | Outpatient (AMB) | payer MEDICARE, SELFPAY ==
--- NOTE | 2024-08-15 15:47 | MHC.PC.OV ---
Vital Signs 08/15/24 15:53 Height 5 ft 6 in Weight 153 lb 2 oz BMI 24.7 BP 100/60 Blood Pressure Location Rt brachial Position Sitting Respiration 12 Pulse 91 Pulse Source Pulse Oximeter Temp 97.5 F Temp Source Tympanic Pulse Oximetry (%) 97 Oxygen Delivery Method Room Air Intake Visit Reasons: Office visit Intake Note: CPE Is last menstrual period known: No Post menopausal: Yes Patient : No Allergies oxycodone [From Percocet] Allergy (Mild, Verified 08/15/24 15:48) leaves her ciarra rangel Medication List - Last Reconciled 08/15/24 by Paras Alicea MD amlodipine 5 mg PO DAILY 90 days calcium carbonate-vitamin D3 600 mg-10 mcg (400 unit) caps PO docusate sodium (Colace) 100 mg PO DAILY ibuprofen 600 mg PO Q8H PRN lisinopril 20 mg PO DAILY 90 days Tobacco use date assessed: 08/15/24 Fall risk assessment: No Falls in past year Last assessed Fall Risk: 08/15/24 Dental Screening Dental Screen Date: 08/15/24 Did you have a dental visit in the last 12 months?: Yes Did you have a dental problem in the last 6 months where you did not have access to dental care?: No Was dental information given to patient?: Patient has dentist HPI Office visit HPI Details 69 y/o female presents for a CPE with f/u labs and health maintenance. No recent CPE-labs to review. She has an upcoming nuclear stress test in August for fatigue. Blood pressure today 100/60, 91p. Recent mammogram and has not been read yet. 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 Lyme disease HTN (hypertension) Surgical History H/O dilation and curettage Hx of tonsillectomy Family History (Updated 07/27/24 @ 10:18 by Marnie Manzo CMA) Mother CHF (congestive heart failure) Dementia Type 2 diabetes mellitus Father Heart attack Prostate cancer Sister Pancreatic cancer Brother Prostate cancer Social History (Updated 08/15/24 @ 15:51 by Sudeep Salinas MA) Household Members: Spouse Housing: House Do you presently have visiting nurse or other home services: No Alcohol intake: current Comment: rare Patient Tobacco Use Status: Never used Tobacco e-Cigarette/Vaping Use: Never Used Use of substances other than those prescribed or required for medical reasons: No Advance Directives Date on File: 07/19/21 Patient : No service: No Current occupational status: employed 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 1. Little interest or pleasure in doing things: not at all 2. Feeling down, depressed, or hopeless: not at all 3. Trouble falling or staying asleep, or sleeping too much: not at all 4. Feeling tired or having little energy: nearly every day 5. Poor appetite or overeating: not at all 6. Feeling bad about yourself - or that you are a failure or have let yourself or your family down: not at all 7. Trouble concentrating on things, such as reading the newspaper or watching television: not at all 8. Moving or speaking so slowly that other people could have noticed. Or the opposite - being so fidgety or restless that you have been moving around a lot more than usual: not at all 9. Thoughts that you would be better off or of hurting yourself in some way: not at all Total score: 3 Depression Screening Interpretation: Negative Depression Screening Done: Yes 41176 - PHQ-9 Billing: Yes Source: Developed by Drs. Melvin Benites, Ansley Howe, Brice Ward and colleagues, with an educational naman from [employer]. Thrive Questionnaire Date Thrive assessed: 08/15/24 I am a: Patient What is your living situation today?: I have a steady place to live Within the past 12 months, did the food you bought not last and you didn't have the money to get more?: Never true Within the past 12 months, did you worry whether your food would run out before you got money to buy more?: Never true Do you have trouble paying for medicines?: No Do you have trouble getting transportation to medical appointments?: No Do you have trouble paying your heating and electricity bill?: No Do you have trouble taking care of your child, family member or friend?: No Do you have trouble with day-to-day activities such as bathing, preparing meals, shopping, managing finances, etc.?: No Are you currently unemployed and looking for a job?: No Are you interested in more education?: No Please select the resources that you would like help with: None Currently or been in a relationship where the following occur: No concerns reported THRIVE Score: 0 AUDIT C Alcohol Use Questionnaire (AUDIT-C) 1. How often do you have a drink containing alcohol?: Never 3. How often do you have six or more drinks on one occasion?: Never Total Score: 0 Score Reviewed/Action Taken: Yes FIONA-7 AMB Questionnaire FIONA-7 Date FIONA - 7 assessed: 08/15/24 Feeling nervous, anxious, or on edge: 0 = Not at all Not being able to stop or control worryin = Not at all Worrying too much about different things: 0 = Not at all Trouble relaxin = Not at all Being so restless that it is hard to sit still: 0 = Not at all Becoming easily annoyed or irritable: 0 = Not at all Feeling afraid as if something awful might happen: 0 = Not at all Total FIONA-7 score (0-4 normal; 5-9 mild; 10-14 moderate; 15-21 severe): 0 Source: Developed by Drs. Melvin Benites, Ansley Howe, Brice Ward and colleagues, with an educational naman from [employer]. FIONA-7 Assessment Billing FIONA-7 Assessment Tool: FIONA-7 Assessment 81930 Review of Systems Const Denies chills, Denies fatigue, Denies fever(s), Denies headache(s) and Denies weakness Eyes Denies change in vision ENT Denies dizziness, Denies headache(s), Denies hearing loss, Denies nasal congestion, Denies sinus pain, Denies sinus pressure and Denies sore throat Card Denies chest pain, Denies lightheadedness, Denies dyspnea and Denies other (palpitations) Resp Denies cough, Denies dyspnea and Denies wheezing GI Denies abdominal pain, Denies melena, Denies hematochezia, Denies change in bowel habits, Denies dyspepsia and Denies nausea Denies hematuria and Denies dysuria Musc Denies abnormal gait, Denies myalgias, Denies arthralgias, Denies numbness and Denies tingling Skin/Breast Denies rash, Denies unusual bruising and Denies wounds Neuro Denies abnormal gait, Denies dizziness, Denies headache(s), Denies memory loss, Denies numbness, Denies Sensory deficit (Neuro), Denies tingling and Denies weakness Psych Denies anxiety, Denies depression and Denies memory loss Endo Denies cold intolerance, Denies fatigue, Denies heat intolerance, Denies polydipsia and Denies polyuria Vidal/Lymph Denies easy bleeding and Denies easy bruising Aller/Immun Denies wheezing Physical exam (Primary Care) Vital Signs: Last Vital Signs Temp 97.5 F 08/15/24 15:53 Pulse 91 08/15/24 15:53 Resp 12 08/15/24 15:53 BP 100/60 08/15/24 15:53 Pulse Ox 97 08/15/24 15:53 Oxygen Delivery Method Room Air 08/15/24 15:53 BMI result Body Mass Index 24.7 Tobacco/Smoking Status: Tobacco use Status Tobacco use date assessed 08/15/24 08/15/24 15:56 Patient Tobacco Use Status Never used Tobacco 08/15/24 15:51 e-Cigarette/Vaping Use Never Used 08/15/24 15:51 PHQ-9: PHQ-9 Score PHQ-9: Total score 3 08/15/24 15:56 Depression Screening Interpretation: Negative Thrive Assessment: Date of Thrive Assessment Date Thrive assessed 08/15/24 08/15/24 15:56 Currently or been in a relationship where the following occur: No concerns reported Const General: no acute distress, well developed, alert and awake Nutritional Appearance: well nourished Orientation/consciousness: patient oriented x3 HENMT Head: Yes normocephalic and Yes atraumatic Ears: hearing grossly normal bilaterally and TM's normal bilaterally General nose exam: Normal external nose present and Normal nares present Mouth: Normal oral and palatal mucosa present and moist mucous membranes Teeth and gingiva: dentition normal Throat: Yes posterior oropharynx normal Eyes General: appearance normal, both eyes and all related structures Pupils: Equal, round and reactive pupils present and Pupil accommodation reflex normal EOM: EOMs intact bilaterally Neck Neck: Yes normal visual inspection, Yes no lymphadenopathy and Yes trachea midline Thyroid: Thyroid normal Carotids: no bruits Lymphatic: no lymphadenopathy noted Chest Chest palpation & inspection: normal inspection of the chest Resp Effort & Inspection: normal respiratory effort Auscultation: clear to auscultation bilaterally Cardio Rate: regular rate Rhythm: regular rhythm Heart sounds: S1 normal heart sound present, S2 normal heart sound present, no gallops, no murmurs and no rubs Bruits: no abdominal aortic bruits and no carotid bruits GI Palpation (GI): No Abdominal aortic bruit present, Soft to palpation, nontender, No hepatosplenomegaly present and No Rebound tenderness present Auscultation: normal bowel sounds General: Yes no CVA tenderness Back/Spine/Pelvis Back: no CVA tenderness Cervical Spine: cervical ROM normal and No Cervical spine tenderness Thoracic/Lumbar Spine: thoraco-lumbar ROM normal, No pain with thoraco-lumbar ROM, No thoracic spinal tenderness and No lumbar spinal tenderness Skin Lesions: no lesions Rashes: no rashes Trauma: no lacerations or abrasions Wounds: no wounds Nails: normal Neuro General: patient oriented x3 Cranial nerves: Yes Equal, round and reactive pupils present Cognition (Neuro): normal cognition Gait exam (Neuro): Normal gait present Motor exam (neuro): 5/5 motor strength present throughout Sensory Exam: No Sensory deficit (Neuro) Deep tendon reflexes (DTR's): Right patellar reflex intensity grade: 2+ and Left patellar reflex intensity grade: 2+ Extrem General: Yes normal to inspection and No edema Psych Appearance: grossly normal Affect: normal affect Attitude: cooperative Thought process: Normal thought process present Assessment and Plan Assessment & Plan (1) Adult general medical exam: Code(s): Z00.00 - Encounter for general adult medical examination without abnormal findings Plan: 69-year-old?female?presents?for?complete?physical?exam Encouraged?healthy?diet?with?active?lifestyle?and?exercise (2) HTN (hypertension): Code(s): I10 - Essential (primary) hypertension Plan: Blood?pressure?is?controlled.??Goal?is?less?than?130/80 Continue?current?medication Hydrate?well (3) Osteopenia: Code(s): M85.80 - Other specified disorders of bone density and structure, unspecified site Plan: Encouraged?good?sources?of?calcium?and?vitamin-D Encouraged?exercise?including?some?weight-bearing?exercise Will?continue?to?monitor?every?2?years. Bone?density?test?is?up-to-date (4) Fatigue: Code(s): R53.83 - Other fatigue Plan: Still?has?ongoing?fatigue?after?COVID She?says?she?had?been?walking?up?to?8000?steps?and?is?back?up?to?about?7000?steps?now Continue?exercise (5) Screening for colon cancer: Code(s): Z12.11 - Encounter for screening for malignant neoplasm of colon Plan: Patient?says?she?had?a?colonoscopy?within?3?years?and?found?1?polyp.??She?was?told?to?follow-up?in?3?year Colonoscopy?was?at?[facility] Will?request?report (6) Breast cancer screening by mammogram: Code(s): Z12.31 - Encounter for screening mammogram for malignant neoplasm of breast Plan: Mammogram?was?recently?acquired?but?report?is?not?available?yet. Will?call?patient?if?action?is?required (7) Screening for cervical cancer: Code(s): Z12.4 - Encounter for screening for malignant neoplasm of cervix Plan: Follow-up?with?body bumper Coding Level of Care Code Est Pt Level 3 (41800) Est Pt Prev Care >65y(99861) Diagnoses Adult general medical exam Z00.00 HTN (hypertension) I10 Osteopenia M85.80 Fatigue R53.83 Screening for colon cancer Z12.11 Breast cancer screening by mammogram Z12.31 Screening for cervical cancer Z12.4 Additional Codes FIONA-7 Assessment Billing - FIONA-7 Assessment Tool: FIONA-7 Assessment [id number] ([id number])
[2024-08-15 15:53] VITALS: BP 100/60; PULSE 91; RESP 12; TEMP 36.4; O2SAT 97; BMI 24.7
== END 2024-08-15 16:24 | disposition home or self-care (01) ==
PROVIDERS: PCP Family Medicine; Visit Provider Family Medicine
DX: Z00.00 Encounter for general adult medical examination without abnormal findings (principal); I10 Essential (primary) hypertension; M85.80 Other specified disorders of bone density and structure, unspecified site; R53.83 Other fatigue; Z12.11 Encounter for screening for malignant neoplasm of colon; Z12.31 Encounter for screening mammogram for malignant neoplasm of breast; Z12.4 Encounter for screening for malignant neoplasm of cervix

== ENCOUNTER → 2024-08-15 15:32 | Outpatient (BNVA) | payer MEDICARE, SELFPAY | PROVIDERS: PCP Family Medicine; Visit Provider Family Medicine ==

== ENCOUNTER → 2024-09-08 07:49 | Outpatient (REF) | payer MEDICARE, SELFPAY ==
--- NOTE | ~2024-09-08 | NM_ITS ---
EXERCISE MYOCARDIAL PERFUSION STUDY INDICATION: Precordial chest pain to evaluate for myocardial ischemia TECHNIQUE: The patient was brought in for an exercise perfusion study on 09/08/2024. Patient performed exercise as per Javier protocol and was injected 25 mCi of sestamibi once target heart rate was achieved. Images were obtained using the SPECT gamma camera interlaced with the gating device. Images were obtained in supine position. Resting perfusion study was performed on 09/13/2024. Patient was administered 25 mCi of sestamibi intravenously at rest. Images were then obtained in supine position. Images obtained without without CT attenuation. Total DLP 92 mGy-cm. Images were processed with the software and compared side to side in short axis, horizontal long axis and vertical long axis views. FINDINGS: Raw images were reviewed The stress perfusion study showed both attenuated as well as nonattenuated corrected images show mildly reduced uptake in the apex A small area. Remainder of the LV myocardium is normally perfused. There is suggestion of left ventricular hypertrophy. The gated study shows normal LV systolic function with calculated LVEF of 74%. LV cavity is normal in size. The gated study shows normal systolic wall thickening and contraction of segments. Resting study shows both attenuated as well as nonattenuated corrected images show some improvement in the uptake in the apex of the LV myocardium.. Gating at rest reveals normal systolic wall motion with ejection fraction at 66%. The findings are consistent with a few apical reversible defect noted in the apex of a small area of mild intensity possibly suggestive of ischemia.. NM/NM cardiolite stress test IMPRESSION: 1. Myocardial perfusion imaging study shows equivocal for apical ischemia. 2. Gated LVEF is 74%. 3. Transient ischemic dilatation not present. EKG revealed negative for ischemia. Electronically signed by: Darryl Moore MD 09/13/2024 04:27 PM EDT
--- NOTE | 2024-09-08 07:51 | CA_ITS ---
Acquisition Time: 2024-09-08 07:47:08 Total Exercise Time: 00:05:15 Test Indications: Fatigue Medications: AMLODIPINE LISINOPRIL Protocol: SAHRA Max HR: 137 BPM 90% of Pred: 151 BPM Max BP: 122/080 mmHG Max Work Load: 7.0 METS Exercise stress test with exercise 5 min 15 sec of Sahra protocol, achieving 90% MPHR, without anginal symptoms, with isolated PVCs in recovery, with blunted BP response to exercise ( could be technical), without EKG changes meeting criteria for ischemia. Nuclear images pending. Test reviewed with Dr Moore Referred By: Jesus Dean Overread By: FRANCISCO BERNARD
[2024-09-08 14:11] LABS: Appearance Urine Clear; Color Urine Yellow; Glucose Urine UA Negative (Negative); Leukocyte Esterase Urine Small (1+) (Negative); Nitrite Urine Negative (Negative); Specific Gravity - Urine <= 1.005 (1.005-1.025); UMIC TRIGGER UA YES; Urine Blood Negative (Negative); Urine Ketones Negative (Negative); Urine Protein Negative (Neg-Trace)
[2024-09-08 14:23] LABS: Bacteria Urine None Seen (None Seen); Hyaline Casts Urine 0-2 /LPF (0-2); RBC Urine 0-2 /HPF (0-2); Squamous Epithelial Cell Urine 0-2 /HPF (0-2); WBC Urine 0-5 /HPF (0-5)
== END ==
LOC: HO.CARD 07:49
PROVIDERS: Physician Assistant Medical; PCP Family Medicine; Visit Provider Internal Medicine
DX: R07.2 Precordial pain (principal); R39.9 Unspecified symptoms and signs involving the genitourinary system; R39.15 Urgency of urination
CPT/HCPCS: 78452; 81001; 81002; 87086; 93017; 99212; A9500

== ENCOUNTER → 2024-09-08 07:51 | Outpatient (BNV) | payer MEDICARE, SELFPAY | PROVIDERS: PCP Family Medicine; Visit Provider Nurse Practitioner Family | DX: I49.3 Ventricular premature depolarization (principal) | CPT/HCPCS: 78452; 93016; 93018 ==

== ENCOUNTER → 2024-09-08 11:48 | Outpatient (AMB) | payer MEDICARE, SELFPAY ==
--- NOTE | 2024-09-08 11:51 | AM.OFFWIN_ITS ---
Intake Vital Signs 09/08/24 11:57 Height 5 ft 6 in Weight 157 lb 4 oz BMI 25.4 BP 122/72 Blood Pressure Location Rt brachial Position Sitting Respiration 14 Pulse 96 Pulse Source Pulse Oximeter Temp 97.4 F Temp Source Oral Pulse Oximetry (%) 98 Oxygen Delivery Method Room Air Intake Visit Reasons: UTI infection Intake Note: Patient complaining of urgency and discomfort x2 days. Patient Tobacco Use Status: Never used Tobacco Allergies oxycodone [From Percocet] Allergy (Mild, Verified 09/08/24 11:57) leaves her weepy, weird Do you need a note to return to daycare/school/sports/work: No HPI HPI Comments History of Present Illness Details This is a 69-year-old female with a past medical history of hypertension, Lyme disease and osteoporosis presenting for urinary symptoms. Two days ago she developed urinary frequency/urgency. She denies burning with urination, but she says there is a little discomfort sometimes. Her symptoms are characterized as mild. She does not get frequent UTIs. No fevers, chills, hematuria, malodorous urine, abdominal pain or back pain. No recent antibiotics. No vaginal bleeding or discharge. Denies history of kidney stones. ROS: Noncontributory unless otherwise noted in HPI Physical exam: Constitutional: Alert, in no distress. Respiratory: Clear to auscultation. Cardiovascular: S1 S2 regular. No murmurs. Gastrointestinal: Abdomen soft, non-tender, non-distended. Normal bowel sounds. No palpable masses. Genitourinary: No costovertebral angle tenderness. 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 Lyme disease HTN (hypertension) Surgical History H/O dilation and curettage Hx of tonsillectomy Family History (Updated 07/27/24 @ 10:18 by Marnie Manzo CMA) Mother CHF (congestive heart failure) Dementia Type 2 diabetes mellitus Father Heart attack Prostate cancer Sister Pancreatic cancer Brother Prostate cancer Social History (Updated 08/15/24 @ 15:51 by BERNARD Mustafa) Household Members: Spouse Housing: House Do you presently have visiting nurse or other home services: No Alcohol intake: current Comment: rare Patient Tobacco Use Status: Never used Tobacco e-Cigarette/Vaping Use: Never Used Advance Directives Date on File: 07/19/21 service: No Current occupational status: employed 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 Cognitive needs: No Hearing needs: No Vision needs: Yes (patient wears glasses) Physical Exam Vital Signs: Last Vital Signs Temp 97.4 F 09/08/24 11:57 Pulse 96 09/08/24 11:57 Resp 14 09/08/24 11:57 BP 122/72 09/08/24 11:57 Pulse Ox 98 09/08/24 11:57 Oxygen Delivery Method Room Air 09/08/24 11:57 BMI result Body Mass Index 25.4 Results AMB Urinalysis Dipstick UR Leukocytes Negative Last Edit by Pradip Aguila MA on 09/08/24 12:29 UR Nitrite Negative Last Edit by Pradip Aguila MA on 09/08/24 12:29 UR Urobilinogen Normal Last Edit by Pradip Aguila MA on 09/08/24 12:29 UR Protein Negative Last Edit by Pradip Aguila MA on 09/08/24 12:29 UR Ph 5.5 Last Edit by Pradip Aguila MA on 09/08/24 12:29 UR Blood Negative Last Edit by Pradip Aguila MA on 09/08/24 12:29 UR Specific [place] 1.010 Last Edit by Pradip Aguila MA on 09/08/24 12:2 9 UR Ketone Negative Last Edit by Pradip Aguila MA on 09/08/24 12:29 UR Bilirubin Negative Last Edit by Pradip Aguila MA on 09/08/24 12:29 UR Glucose Negative Last Edit by Pradip Aguila MA on 09/08/24 12:29 Results Reviewed Results Reviewed: Laboratory Last Values Urine pH (Clinic) 5.5 09/08/24 12:24 Specific [place] (Clinic) 1.010 09/08/24 12:24 Ur Protein (Clinic) Negative 09/08/24 12:24 Ur Ketones (Clinic) Negative 09/08/24 12:24 Urine Blood (Clinic) Negative 09/08/24 12:24 Urine Nitrite Negative 09/08/24 12:24 Urine Bilirubin (Clinic) Negative 09/08/24 12:24 Urobilinogen (Clinic) Normal 09/08/24 12:24 Leukocyte Esterase (Clinic) Negative 09/08/24 12:24 Urine Glucose (Clinic) Negative 09/08/24 12:24 Assessment & Plan Assessment & Plan (1) Urinary urgency: Code(s): R39.15 - Urgency of urination Plan Well-appearing, normal vitals. Urine dipstick negative. I will send her to the lab for urinalysis and culture given symptoms. Review differential. She has no symptoms consistent with pyelonephritis or obstruction. Nephrolithiasis lower on differential given lack of hematuria and flank/abdominal pain. Recommended increasing fluids. Reviewed warning signs warranting ER evaluation. Orders: Orders UA w Microscopic Today R39.9 - Unspecified symptoms and signs involving the genitourinary system Urine Culture Today R39.9 - Unspecified symptoms and signs involving the genitourinary system AMB Urinalysis Dipstick Today Z13.9 - Encounter for screening, unspecified Coding Level of Care Code Est Pt Level 3 (65237) Diagnoses Urinary urgency R39.15
[2024-09-08 11:57] VITALS: BP 122/72; PULSE 96; RESP 14; TEMP 36.3; O2SAT 98; BMI 25.4
== END ==
PROVIDERS: PCP Family Medicine; Visit Provider Physician Assistant Medical
DX: Z13.9 Encounter for screening, unspecified (principal); R39.15 Urgency of urination

== ENCOUNTER 2024-10-12 15:02 | Outpatient (AMB) | payer MEDICARE, SELFPAY ==
[2024-10-12 15:09] VITALS: BP 122/62; PULSE 72; BMI 24.5
--- NOTE | 2024-10-12 15:09 | MHC.OFFVIS ---
Vital Signs 10/12/24 15:09 Height 5 ft 6 in Weight 152 lb 1.903 oz BMI 24.5 BP 122/62 Blood Pressure Location Lt brachial Position Sitting Pulse 72 Pulse Source Pulse Oximeter Intake Visit Reasons: f/up stress Allergies oxycodone [From Percocet] Allergy (Mild, Verified 09/08/24 11:57) leaves her weepy, weird Medication List - Last Reconciled 10/12/24 by Jesus Dean MD amlodipine 5 mg PO DAILY 90 days aspirin 81 mg PO DAILY calcium carbonate-vitamin D3 600 mg-10 mcg (400 unit) caps PO docusate sodium (Colace) 100 mg PO DAILY ibuprofen 600 mg PO Q8H PRN lisinopril 20 mg PO DAILY 90 days HPI Comments Details: Angelika returns for follow-up. Recently seen in consultation regarding fatigue. In the past, she could walk several miles a day but has had difficulty doing it as she was getting exhausted. No clear angina. 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 Various symptoms like instability in gait extra. Unintentional weight loss. She underwent cardiac workup in this process. 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 Lyme disease HTN (hypertension) Surgical History H/O dilation and curettage Hx of tonsillectomy Family History (Updated 07/27/24 @ 10:18 by Marnie Manzo CMA) Mother CHF (congestive heart failure) Dementia Type 2 diabetes mellitus Father Heart attack Prostate cancer Sister Pancreatic cancer Brother Prostate cancer Social History (Updated 08/15/24 @ 15:51 by BERNARD Mustafa) Household Members: Spouse Housing: House Do you presently have visiting nurse or other home services: No Alcohol intake: current Comment: rare Patient Tobacco Use Status: Never used Tobacco e-Cigarette/Vaping Use: Never Used Advance Directives Date on File: 07/19/21 service: No Current occupational status: employed 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 Cognitive needs: No Hearing needs: No Vision needs: Yes (patient wears glasses) Review of Systems Const Denies weakness ENT Denies dizziness Card Denies chest pain, Denies chest pain with activity, Denies syncope, Denies rapid heart rate, Denies pedal edema, Denies edema, Denies leg edema, Denies lightheadedness, Denies palpitations, Denies dyspnea, Denies dyspnea on exertion and Denies orthopnea Resp Denies cough, Denies dyspnea and Denies dyspnea on exertion GI Denies hematochezia and Denies change in stool character Musc Denies abnormal gait, Denies muscle cramps, Denies muscle weakness, Denies numbness, Denies radiating pain into limb and Denies tingling Neuro Denies abnormal gait, Denies dizziness, Denies syncope, Denies numbness, Denies tingling and Denies weakness Endo Denies palpitations Physical Exam Vital Signs: Last Vital Signs Pulse 72 10/12/24 15:09 BP 122/62 10/12/24 15:09 BMI result Body Mass Index 24.5 Const General: comfortable and no acute distress Orientation/consciousness: patient oriented x3 HEENT Other: Unremarkable Head: Yes normal to inspection Neck Neck: Yes normal visual inspection Chest Chest palpation & inspection: normal inspection of the chest Resp Auscultation: clear to auscultation bilaterally Cardio Palpation: normal PMI Heart sounds: S1 normal heart sound present, S2 normal heart sound present, no gallops, no murmurs and no rubs GI Palpation (GI): Soft to palpation Back/Spine/Pelvis Other: unremarkable Skin General skin exam: no rashes or lesions noted Neuro General: patient oriented x3 Extrem General: Yes normal to inspection Psych Mental Status: mental status grossly normal Assessment & Plan Assessment & Plan (1) Fatigue: Code(s): R53.83 - Other fatigue Category: Medical (2) Unintentional weight loss: Code(s): R63.4 - Abnormal weight loss Category: Medical (3) HTN (hypertension): Code(s): I10 - Essential (primary) hypertension Category: Medical Plan EKG shows underlying sinus rhythm at 85/Min; cannot exclude old septal infarct but could be from body habitus and lead placement; normal VT and corrected QT. nonspecific ST-T changes. However, there is another EKG done in the office 07/12 which looks different- showing sinus rhythm but not the findings of septal infarct as above. Nonspecific ST-T changes are also not obvious. In the echocardiogram, normal LVEF, 58%. Possible basal inferior hypokinesis but otherwise unremarkable. In the stress test, she was able to exercise for 7 METS on Javier protocol and reached 90% target heart rate without angina. No EKG evidence of ischemia. In the perfusion imaging, there was question of equivocal apical ischemia but upon my review, gated images seem to be normal and hence it could be just artifactual from breast but not clear. Gated LVEF 74% at rest. Overall, history of COVID, fatigue, weight loss and nonspecific symptoms. But no angina. Cardiac workup as described above. Borderline findings, but nothing definitively abnormal. We discussed the findings and my impression of the same as well. Overall, doubt any cardiac etiology for her specific symptoms. They are very atypical for obstructive CAD. We also discussed about getting a coronary CTA, but then after a long discussion, decided to hold off. She stated that she will watch for any symptoms like angina and then contact us as necessary. That seems a reasonable option. Otherwise, blood pressure seems stable on the current regimen. Discussed with significant other. Total time spent including review of data, counseling, documentation, coordination of care-32 minutes. Coding Level of Care Code Est Pt Level 4 (77760) Diagnoses Fatigue R53.83 Unintentional weight loss R63.4 HTN (hypertension) I10
== END 2024-10-12 15:54 | disposition home or self-care (01) ==
PROVIDERS: PCP Family Medicine; Visit Provider Internal Medicine
DX: R53.83 Other fatigue (principal); R63.4 Abnormal weight loss; I10 Essential (primary) hypertension
CPT/HCPCS: 99214

== ENCOUNTER → 2024-10-12 15:02 | Outpatient (BNVA) | payer MEDICARE, SELFPAY | PROVIDERS: PCP Family Medicine; Visit Provider Internal Medicine | DX: R53.83 Other fatigue (principal); R63.4 Abnormal weight loss; I10 Essential (primary) hypertension | CPT/HCPCS: 99212 ==

== ENCOUNTER 2024-12-15 15:34 | Outpatient (AMB) | payer MEDICARE, SELFPAY ==
--- NOTE | 2024-12-15 15:48 | A.OFFPC_ITS ---
Vital Signs 12/15/24 15:54 Height 5 ft 6 in Weight 150 lb 8 oz BMI 24.3 BP 120/70 Blood Pressure Location Rt brachial Respiration 14 Pulse 90 Pulse Source Pulse Oximeter Pulse Oximetry (%) 99 Oxygen Delivery Method Room Air Intake Visit Reasons: f/u hypertension, chronic conditions Intake Note: f/u HTN MAMMO review Allergies oxycodone [From Percocet] Allergy (Mild, Verified 12/15/24 15:52) leaves her ciarra rangel Medication List - Last Reconciled 12/15/24 by Paras Alicea MD amlodipine 5 mg PO DAILY 90 days aspirin 81 mg PO DAILY calcium carbonate-vitamin D3 600 mg-10 mcg (400 unit) caps PO docusate sodium (Colace) 100 mg PO DAILY ibuprofen 600 mg PO Q8H PRN lisinopril 20 mg PO DAILY 90 days Tobacco use date assessed: 08/15/24 Dental Screening Dental Screen Date: 08/15/24 HPI f/u hypertension, chronic conditions HPI Details 69 y/o female presents to f/u hypertensi on, chronic conditions. Had been following up with Cardiology for fatigue. Cardiac workup showed borderline findings but nothing definitively abnormal. She notes fatigue improved. She has been walking 3 miles a day. Blood pressure today 120/70, 90p. She is on amlodipine 5mg, lisinopril 20mg daily. 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 Lyme disease HTN (hypertension) Surgical History H/O dilation and curettage Hx of tonsillectomy Family History (Updated 07/27/24 @ 10:18 by Marnie Manzo CMA) Mother CHF (congestive heart failure) Dementia Type 2 diabetes mellitus Father Heart attack Prostate cancer Sister Pancreatic cancer Brother Prostate cancer Social History (Updated 08/15/24 @ 15:51 by BERNARD Mustafa) Household Members: Spouse Housing: House Do you presently have visiting nurse or other home services: No Alcohol intake: current Comment: rare Patient Tobacco Use Status: Never used Tobacco e-Cigarette/Vaping Use: Never Used Advance Directives Date on File: 07/19/21 service: No Current occupational status: employed 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 1. Little interest or pleasure in doing things: not at all 2. Feeling down, depressed, or hopeless: not at all 3. Trouble falling or staying asleep, or sleeping too much: not at all 4. Feeling tired or having little energy: not at all 5. Poor appetite or overeating: not at all 6. Feeling bad about yourself - or that you are a failure or have let yourself or your family down: not at all 7. Trouble concentrating on things, such as reading the newspaper or watching television: not at all 8. Moving or speaking so slowly that other people could have noticed. Or the opposite - being so fidgety or restless that you have been moving around a lot more than usual: not at all 9. Thoughts that you would be better off or of hurting yourself in some way: not at all Total score: 0 Source: Developed by Drs. Melvin Benites, Ansley Howe, Brice Ward and colleagues, with an educational naman from [employer]. Thrive Questionnaire Date Thrive assessed: 12/08/24 I am a: Patient What is your living situation today?: I have a steady place to live Within the past 12 months, did the food you bought not last and you didn't have the money to get more?: Never true Within the past 12 months, did you worry whether your food would run out before you got money to buy more?: Never true Do you have trouble paying for medicines?: No Do you have trouble getting transportation to medical appointments?: No Do you have trouble paying your heating and electricity bill?: No Do you have trouble taking care of your child, family member or friend?: No Do you have trouble with day-to-day activities such as bathing, preparing meals, shopping, managing finances, etc.?: No Are you currently unemployed and looking for a job?: No Are you interested in more education?: No Please select the resources that you would like help with: None Currently or been in a relationship where the following occur: No concerns reported THRIVE Score: 0 AUDIT C Alcohol Use Questionnaire (AUDIT-C) 1. How often do you have a drink containing alcohol?: Never 3. How often do you have six or more drinks on one occasion?: Never Total Score: 0 FIONA-7 AMB Questionnaire FIONA-7 Date FIONA - 7 assessed: 08/15/24 Feeling nervous, anxious, or on edge: 0 = Not at all Not being able to stop or control worryin = Not at all Worrying too much about different things: 0 = Not at all Trouble relaxin = Not at all Being so restless that it is hard to sit still: 0 = Not at all Becoming easily annoyed or irritable: 0 = Not at all Feeling afraid as if something awful might happen: 0 = Not at all Total FIONA-7 score (0-4 normal; 5-9 mild; 10-14 moderate; 15-21 severe): 0 Source: Developed by Drs. Melvin Benites, Ansley Howe, Brice Ward and colleagues, with an educational naman from [employer]. Physical exam (Primary Care) Vital Signs: Last Vital Signs Pulse 90 12/15/24 15:54 Resp 14 12/15/24 15:54 BP 120/70 12/15/24 15:54 Pulse Ox 99 12/15/24 15:54 Oxygen Delivery Method Room Air 12/15/24 15:54 BMI result Body Mass Index 24.3 Tobacco/Smoking Status: Tobacco use Status Tobacco use date assessed 08/15/24 12/15/24 15:50 Patient Tobacco Use Status Never used Tobacco 12/15/24 15:50 e-Cigarette/Vaping Use Never Used 12/15/24 15:50 PHQ-9: PHQ-9 Score PHQ-9: Total score 0 12/15/24 16:06 Thrive Assessment: Date of Thrive Assessment Date Thrive assessed 12/08/24 12/15/24 15:50 Currently or been in a relationship where the following occur: No concerns reported Coding Level of Care Code Est Pt Level 3 (67603) Diagnoses HTN (hypertension) I10 Fatigue R53.83 Arthritis of right hand M19.041 Tremor R25.1 Imbalance R26.89 Assessment & Plan Assessment & Plan (1) HTN (hypertension): Code(s): I10 - Essential (primary) hypertension Category: Medical Plan: Blood?pressure?is?controlled. Goal?for?her?is?less?than?130/80 - uncertain?and?cardia?status?regarding?possible?small?my ocardial?infarction?or?coronary?artery?disease. Continue?current?medication?regimen Hydrate?well?and?avoid?low?blood?pressures?as?well (2) Fatigue: Code(s): R53.83 - Other fatigue Category: Medical Plan: Ongoing?fatigue She?was?seen?by?Cardiology.? ?Cardiology?did?an?extensive?workup?and?some?of?this?appears?somewhat?equivocal. Patient?and?specialist?considered?CTA?but?are?holding?off?on?doing?this?now.??Sh e?will?continue?to?monitor?for?any?inte rim?symptoms?and?let?us?know?if?anything?changes. (3) Arthritis of right hand: Code(s): M19.041 - Primary osteoarthritis, right hand Category: Medical Plan: Mild?arthritis?of?4th?finger?on?right?hand Encouraged?ice?heat?and?topical Can?also?use?some?oral?NSAID Could?refer?patient?to?hand?specialist?if?this?continues?to?worsen?despite?conse rvative?care. (4) Tremor: Code(s): R25.1 - Tremor, unspecified Category: Medical Plan: Patient?notes?ongoing?tremor?and?also?imbalance She?denies?any?cognitive?changes No?focal?deficits She?notes?that?she?sometimes?list?to?1?side?but?she?says?it?is?not?always?the?sa me?side Will?check?labs Referred?to?neurology (5) Imbalance: Code(s): R26.89 - Other abnormalities of gait and mobility Category: Medical Plan: As?above Plan Patient?had?prior?concerns?of?weight?loss.??This?has?slowed?down?and?essentially ?stopped.??She?notes?now?that?at?the?small?melonie unt?of?weight?loss?she?has?had?in?the?last?couple?of?months?is?intention.??Body? mass?index?is?in?normal?range. Orders: Orders Vitamin B12 and Folate Today E53.8 - Deficiency of other specified B group vitamins, R25.1 - Tremor, unspecified Free T4 (Free Thyroxine) Today E03.9 - Hypothyroidism, unspecified, R25.1 - Tremor, unspecified Thyroid Stimulating Hormone Today E03.9 - Hypothyroidism, unspecified, R25.1 - Tremor, unspecified Comprehensive [place]. Panel Fast Today R25.1 - Tremor, unspecified, Z00.00 - Encounter for general adult medical examination without abnormal findings Complete Blood Count Auto Diff Today R25.1 - Tremor, unspecified, Z00.00 - Encounter for general adult medical examination without abnormal findings Microalbumin, Random (w Creat) Today I10 - Essential (primary) hypertension Triiodothyronine T3 Total Today E03.9 - Hypothyroidism, unspecified, R25.1 - Tremor, unspecified Thyroid Peroxidase Antibodies Today R25.1 - Tremor, unspecified Referrals Neurology Referral R25.1 - Tremor, unspecified, R26.89 - Other abnormalities of gait and mobility, R53.83 - Other fatigue
[2024-12-15 15:54] VITALS: BP 120/70; PULSE 90; RESP 14; O2SAT 99; BMI 24.3
== END 2024-12-15 16:24 | disposition home or self-care (01) ==
PROVIDERS: PCP Family Medicine; Visit Provider Family Medicine
DX: I10 Essential (primary) hypertension (principal); R53.83 Other fatigue; M19.041 Primary osteoarthritis, right hand; R25.1 Tremor, unspecified; R26.89 Other abnormalities of gait and mobility

== ENCOUNTER → 2024-12-15 15:34 | Outpatient (BNVA) | payer MEDICARE, SELFPAY | PROVIDERS: PCP Family Medicine; Visit Provider Family Medicine | DX: I10 Essential (primary) hypertension (principal); R53.83 Other fatigue; M19.041 Primary osteoarthritis, right hand; R25.1 Tremor, unspecified; R26.89 Other abnormalities of gait and mobility | CPT/HCPCS: 99212 ==

== ENCOUNTER 2024-12-16 07:50 | Outpatient (REF) | payer MEDICARE, SELFPAY ==
[2024-12-16 11:28] LABS: MANUAL DIFF FLAG NO
[2024-12-16 11:38] LABS: Basophils Absolute Auto 0.1 X10*3/uL (0.0-0.2); Basophils Percent Auto 1.5 % (0-2); Eosinophils Absolute Auto 0.1 X10*3/uL (0.0-0.4); Eosinophils Percent Auto 1.2 % (0-4); Hematocrit 45.2 % (37.0-47.0); Hemoglobin 14.7 g/dl (12.0-16.0); Imm Gran Abs Auto 0.01 X10*3/uL (0.00-0.03); Imm Gran Pct Auto 0.2 % (0.0-0.4); Lymphocytes Absolute Auto 1.8 X10*3/uL (1.2-4.9); Lymphocytes Percent Auto 30.3 % (20-40); Mean Corpuscular HGB Conc 32.5 g/dl (31.0-35.0); Mean Corpuscular Hemoglobin 29.4 pg (27.0-33.0); Mean Corpuscular Volume 90.4 fL (80.0-98.0); Monocytes Absolute Auto 0.6 X10*3/uL (0.1-1.2); Monocytes Percent Auto 9.5 % (2-11); Neutrophils Absolute Auto 3.4 x10*3/uL (2.0-8.3); Neutrophils Percent Auto 57.3 % (45-73); Platelet Count 238 X10*3/uL (160-400); Red Cell Distribution Width 12.7 % (11.0-16.0)
[2024-12-16 12:02] LABS: Alanine Aminotransferase 15 U/L (0-31); Albumin Level 4.1 g/dL (3.5-5.0); Alkaline Phosphatase 67 U/L (39-117); Anion Gap 9 (12-20); Aspartate Amino Transferase 24 U/L (5-31); Bilirubin Total 0.3 mg/dL (0.0-1.0); Blood Urea Nitrogen 17 mg/dL (9-16); Calcium 9.1 mg/dL (8.4-10.2); Carbon Dioxide 30 mmol/L (22-29); Chloride 108 mmol/L (96-108); Estimated Glomerular Filt Rate > 60; Glucose Fasting 90 mg/dL (60-99); Potassium 4.2 mmol/L (3.3-5.1); Sodium 143 mmol/L (135-145)
[2024-12-16 12:09] LABS: Free T4 (Free Thyroxine) 1.07 ng/dL (0.71-1.85); Thyroid Stimulating Hormone 1.44 uIU/mL (0.32-4.0)
[2024-12-16 12:17] LABS: Folate 14.1 ng/mL (> or = 4.0); Vitamin B12 380 pg/mL (200-900)
[2024-12-16 12:18] LABS: Creatinine Urine 70.87 mg/dL; Microalbum/Creatinine Ratio Ur 32.4 ug/mg cr (<30)
[2024-12-17 17:33] LABS: Triiodothyronine T3 Total 104 ng/dL (76-181)
[2024-12-19 18:09] LABS: Thyroid Peroxidase Antibodies 1 IU/mL (<9)
== END 2024-12-16 07:51 | disposition home or self-care (01) ==
LOC: HO.WFDLDS 07:50
PROVIDERS: Visit Provider Family Medicine
DX: Z00.00 Encounter for general adult medical examination without abnormal findings (principal); I10 Essential (primary) hypertension; E03.9 Hypothyroidism, unspecified; R25.1 Tremor, unspecified; E53.8 Deficiency of other specified B group vitamins
CPT/HCPCS: 36415; 80053; 82043; 82570; 82607; 82746; 84439; 84443; 84480; 85025; 86376

== ENCOUNTER 2025-01-18 14:43 | Outpatient (AMB) | payer MEDICARE, SELFPAY ==
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
[2025-01-18 15:08] VITALS: BP 114/80; PULSE 98; O2SAT 99; BMI 24.4
== END 2025-01-18 15:51 | disposition home or self-care (01) ==
PROVIDERS: PCP Family Medicine; Visit Provider Psychiatry & Neurology Neurology
DX: R53.1 Weakness (principal); R29.2 Abnormal reflex
CPT/HCPCS: 99204; G2211

== ENCOUNTER → 2025-01-18 14:43 | Outpatient (BNVA) | payer MEDICARE, SELFPAY | PROVIDERS: PCP Family Medicine; Visit Provider Psychiatry & Neurology Neurology | DX: G20.C Parkinsonism, unspecified (principal); R53.1 Weakness; R29.2 Abnormal reflex; M54.2 Cervicalgia; M54.9 Dorsalgia, unspecified | CPT/HCPCS: 99202 ==

== ENCOUNTER 2025-01-20 10:15 | Outpatient (REF) | payer MEDICARE, SELFPAY ==
--- NOTE | ~2025-01-20 | XR_ITS ---
EXAMINATION: XR LUMBOSACRAL SPINE CLINICAL INFORMATION: R29.2 - Abnormal reflex COMPARISON: None available. TECHNIQUE: Three views of the lumbosacral spine. FINDINGS: Facet joint hypertrophy at L5-S1 and to a lesser extent L4-5. S-shaped curvature of the lumbar spine which could be positional. Multilevel endplate sclerosis and marginal osteophyte formation more conspicuous at L1-2, L5-S1 levels. No acute cortical disruption. No gross malalignment. Old superior endplate compression deformity representing 20% volume loss at L2. Vascular calcifications, abdominal aorta. XR/XR lumbar spine 2-3V IMPRESSION: Multilevel spondylosis more conspicuous at L5-S1. Electronically signed by: Velasquez Mcduffie MD 01/20/2025 02:35 PM [facility]
--- NOTE | ~2025-01-20 | XR_ITS ---
EXAMINATION: XR CERVICAL SPINE CLINICAL INFORMATION: M54.2 - Cervicalgia COMPARISON: None available. TECHNIQUE: 3 views of the cervical spine were obtained. FINDINGS: No fracture, compression deformity, or suspicious bone lesion. There is a mild levoconvex scoliosis centered C5. Mildly straightened lordosis. There is a minimal 3 mm anterolisthesis C3 on C4. Trace anterolisthesis C4 on C5. Alignment is otherwise normal. Mild to moderate disc space degeneration present most prominent at C5-6. Craniocervical junction and C1-2 articulation are intact and normally aligned. There is normal facet alignment. There are moderate right greater than left multilevel hypertrophic degenerative facet uncinate changes. This is most pronounced spanning C3-C6. No prevertebral or paravertebral soft tissue abnormality. Lung apices are clear. XR/XR cervical spine 3V IMPRESSION: 1. No acute finding cervical spine. 2. Degenerative changes as discussed. 3. Mild levoconvex scoliosis. Electronically signed by: Shane Yeager MD 01/23/2025 08:58 AM [facility] MURPHY
== END 2025-01-20 10:16 | disposition home or self-care (01) ==
LOC: HO.XRAY 10:15
PROVIDERS: PCP Family Medicine; Visit Provider Psychiatry & Neurology Neurology
DX: R29.2 Abnormal reflex (principal); M54.9 Dorsalgia, unspecified; M54.2 Cervicalgia
CPT/HCPCS: 72040; 72100

== ENCOUNTER → 2025-01-20 10:19 | Outpatient (BNV) | payer MEDICARE, SELFPAY | PROVIDERS: PCP Family Medicine; Visit Provider Radiology Diagnostic Radiology | DX: M54.9 Dorsalgia, unspecified (principal) | CPT/HCPCS: 72100 ==

== ENCOUNTER 2025-02-04 09:12 | Outpatient (REF) | payer MEDICARE, SELFPAY ==
--- NOTE | ~2025-02-04 | MR_ITS ---
EXAMINATION: MR BRAIN WITHOUT IV CONTRAST HISTORY: R25.1 - Tremor, unspecified TECHNIQUE: Sagittal T1, and axial T1, FLAIR, T2, gradient echo, and diffusion weighted MR images of the brain were obtained. COMPARISON: None FINDINGS: There are scattered periventricular and subcortical white matter hyperintensities on the FLAIR and T2-weighted images. These are nonspecific, but often seen in the setting of small vessel ischemic disease. There is no mass effect or midline shift. The ventricular system is normal in size and configuration. No intra or extra-axial fluid collections are identified. There are no foci of restricted diffusion. Normal vascular flow voids are noted in the basilar and carotid arteries. The visualized paranasal sinuses are clear. MR/MR head/brain wo con IMPRESSION: Nonspecific white matter hyperintensities, often seen in the setting of chronic small vessel ischemic disease. Differential diagnostic considerations include migraine, Lyme disease, vasculitis, demyelinating disease. Otherwise unremarkable unenhanced MRI of the brain. Electronically signed by: Melvin Roberts MD 02/06/2025 03:31 PM EDT
== END 2025-02-04 09:13 | disposition home or self-care (01) ==
LOC: HO.MRI 09:12
PROVIDERS: PCP Family Medicine; Visit Provider Psychiatry & Neurology Neurology
DX: R53.1 Weakness (principal); G20.C Parkinsonism, unspecified
CPT/HCPCS: 70551

== ENCOUNTER → 2025-02-04 09:12 | Outpatient (BNV) | payer MEDICARE, SELFPAY | PROVIDERS: PCP Family Medicine; Visit Provider Radiology Diagnostic Radiology | DX: R90.82 White matter disease, unspecified (principal) | CPT/HCPCS: 70551 ==

== ENCOUNTER 2025-02-16 14:17 | Outpatient (AMB) | payer MEDICARE, SELFPAY ==
--- NOTE | 2025-02-16 14:40 | MHC.PC.OV ---
Vital Signs 02/16/25 14:45 Height 5 ft 6 in Weight 145 lb BMI 23.4 BP 138/76 Blood Pressure Location Lt brachial Position Sitting Respiration 13 Pulse 89 Pulse Source Pulse Oximeter Temp 97.1 F Temp Source Oral Pulse Oximetry (%) 98 Oxygen Delivery Method Room Air Intake Visit Reasons: f/u tremor, chronic conditions Intake Note: follow up on tremor, and patient was recently diagnosed with Parkinson disease and also wondering about bp Inflated Pad Buffer Required: No Allergies oxycodone [From Percocet] Allergy (Mild, Verified 02/16/25 14:41) leaves her weeugenio diazrd Tobacco use date assessed: 02/16/25 Fall risk assessment: No Falls in past year Last assessed Fall Risk: 02/16/25 Dental Screening Dental Screen Date: 02/16/25 Did you have a dental visit in the last 12 months?: Yes Did you have a dental problem in the last 6 months where you did not have access to dental care?: No Was dental information given to patient?: Patient has dentist HPI f/u tremor, chronic conditions HPI Details 69 y/o female presents to f/u tremor, imbalance. Have ordered labs and referred her to Neurology. Had seen Neurology 01/18/25. Plan for MRI to rule out structural lesions, C spine and LS spine XR to evaluate for musculoskeletal changes. Had referred her to PT. She is now on carbidopa-levodopa 25-100mg b.i.d. Blood pressure today 138/76, 89p. She is on amlodipine 5mg, lisinopril 20mg daily. 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 Lyme disease HTN (hypertension) Surgical History H/O dilation and curettage Hx of tonsillectomy Family History Mother CHF (congestive heart failure) Dementia Type 2 diabetes mellitus Father Heart attack Prostate cancer Sister Pancreatic cancer Brother Prostate cancer Social History Household Members: Spouse Housing: House Do you presently have visiting nurse or other home services: No Alcohol intake: current Comment: rare Patient Tobacco Use Status: Never used Tobacco e-Cigarette/Vaping Use: Never Used Advance Directives Date on File: 07/19/21 service: No Current occupational status: employed 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 1. Little interest or pleasure in doing things: not at all 2. Feeling down, depressed, or hopeless: not at all 3. Trouble falling or staying asleep, or sleeping too much: not at all 4. Feeling tired or having little energy: not at all 5. Poor appetite or overeating: not at all 6. Feeling bad about yourself - or that you are a failure or have let yourself or your family down: not at all 7. Trouble concentrating on things, such as reading the newspaper or watching television: not at all 8. Moving or speaking so slowly that other people could have noticed. Or the opposite - being so fidgety or restless that you have been moving around a lot more than usual: not at all 9. Thoughts that you would be better off or of hurting yourself in some way: not at all Total score: 0 40762 - PHQ-9 Billing: Yes Source: Developed by Drs. Melvin Benites, Ansley Howe, Brice Ward and colleagues, with an educational naman from [employer]. Thrive Questionnaire Date Thrive assessed: 02/16/25 I am a: Patient What is your living situation today?: I have a steady place to live Within the past 12 months, did the food you bought not last and you didn't have the money to get more?: Never true Within the past 12 months, did you worry whether your food would run out before you got money to buy more?: Never true Do you have trouble paying for medicines?: No Do you have trouble getting transportation to medical appointments?: No Do you have trouble paying your heating and electricity bill?: No Do you have trouble taking care of your child, family member or friend?: No Do you have trouble with day-to-day activities such as bathing, preparing meals, shopping, managing finances, etc.?: No Are you currently unemployed and looking for a job?: No Are you interested in more education?: No Please select the resources that you would like help with: None Currently or been in a relationship where the following occur: No concerns reported THRIVE Score: 0 AUDIT C Alcohol Use Questionnaire (AUDIT-C) 2. How many drinks containing alcohol do you have on a typical day when you are drinking?: 1 or 2 Total Score: 0 FIONA-7 AMB Questionnaire FIONA-7 Date FIONA - 7 assessed: 02/16/25 Feeling nervous, anxious, or on edge: 0 = Not at all Not being able to stop or control worryin = Not at all Worrying too much about different things: 0 = Not at all Trouble relaxin = Not at all Being so restless that it is hard to sit still: 0 = Not at all Becoming easily annoyed or irritable: 0 = Not at all Feeling afraid as if something awful might happen: 0 = Not at all Total FIONA-7 score (0-4 normal; 5-9 mild; 10-14 moderate; 15-21 severe): 0 Source: Developed by Drs. Melvin Benites, Ansley Howe, Brice Ward and colleagues, with an educational naman from [employer]. FIONA-7 Assessment Billing FIONA-7 Assessment Tool: FIONA-7 Assessment 49993 Review of Systems Const Denies chills, Denies fatigue, Denies fever(s), Denies headache(s) and Denies weakness ENT Denies dizziness and Denies headache(s) Card Denies dyspnea Resp Denies cough, Denies dyspnea, Denies wheezing and Denies other (shortness of breath) Musc Denies numbness and Denies tingling Neuro Denies dizziness, Denies headache(s), Denies numbness, Denies tingling, Reports tremor(s) and Denies weakness Psych Denies anxiety and Denies depression Endo Denies fatigue Aller/Immun Denies wheezing Physical exam (Primary Care) Vital Signs: Last Vital Signs Temp 97.1 F 02/16/25 14:45 Pulse 89 02/16/25 14:45 Resp 13 02/16/25 14:45 BP 138/76 02/16/25 14:45 Pulse Ox 98 02/16/25 14:45 Oxygen Delivery Method Room Air 02/16/25 14:45 BMI result Body Mass Index 23.4 Tobacco/Smoking Status: Tobacco use Status Tobacco use date assessed 02/16/25 02/16/25 14:43 Patient Tobacco Use Status Never used Tobacco 02/16/25 14:43 e-Cigarette/Vaping Use Never Used 02/16/25 14:43 PHQ-9: PHQ-9 Score PHQ-9: Total score 0 02/16/25 14:55 Thrive Assessment: Date of Thrive Assessment Date Thrive assessed 02/16/25 02/16/25 14:43 Currently or been in a relationship where the following occur: No concerns reported Const General: well developed; No acute distress Nutritional Appearance: well nourished Orientation/consciousness: patient oriented x3 HENMT Head: Yes normocephalic and Yes atraumatic Eyes General: appearance normal, both eyes and all related structures Pupils: Equal, round and reactive pupils present EOM: EOMs intact bilaterally Resp Effort & Inspection: normal respiratory effort Auscultation: clear to auscultation bilaterally Cardio Rate: regular rate Rhythm: regular rhythm Heart sounds: S1 normal heart sound present, S2 normal heart sound present, no gallops, no murmurs and no rubs Neuro General: patient oriented x3 and gait normal Cranial nerves: Yes Equal, round and reactive pupils present Psych Affect: normal affect Coding Level of Care Code Est Pt Level 3 (82819) Diagnoses Parkinsonism G20.C Weakness R53.1 Tremor R25.1 HTN (hypertension) I10 Additional Codes FIONA-7 Assessment Billing - FIONA-7 Assessment Tool: FIONA-7 Assessment 12931 ([id number]) PHQ-9 - 88134 - PHQ-9 Billing: Yes ([id number]) Assessment & Plan Assessment & Plan (1) Parkinsonism: Code(s): G20.C - Parkinsonism, unspecified Category: Medical (2) Weakness: Comment: bradykinesia, cog wheel rigidity gait probelm ? parkinsons disease Code(s): R53.1 - Weakness Category: Medical (3) Tremor: Code(s): R25.1 - Tremor, unspecified Category: Medical (4) HTN (hypertension): Code(s): I10 - Essential (primary) hypertension Category: Medical Plan Patient?saw?neurology?for?tremor?and?was?diagnosed?with?parkinsonism Had?a?recent?MRI?and?patient?brought?in?report.??She?was?concerned?regarding?he listed?differential.??However,?the?impression?mentions?only?nonspecific?white?matter?changes. I?discussed?with?her?that I?do?not?think?that?ruled?out?parkinsonism. She?will?follow-up?with?her?neurologist She?has?started?carbidopa-levodopa?and?advised?her?to?continue?this She?will?be?starting?physical?therapy-I?encouraged?this Patient?had?had?unintentional?weight?loss?and?would?like?to?see?a?president sales and marketing will?ask?the?nurse?navigator?to?connect?her. Blood?pressure?is?a?little?higher?than?usual.??She?brought?in?a?log?of?her?blood?pressures?which?are?consistently?in?the?1-teens/60s No?change?to?current?medication?regimen Orders: Referrals Nurse Navigator Referral R63.4 - Abnormal weight loss
[2025-02-16 14:45] VITALS: BP 138/76; PULSE 89; RESP 13; TEMP 36.2; O2SAT 98; BMI 23.4
== END 2025-02-16 15:04 | disposition home or self-care (01) ==
LOC: HO.HMCFM 14:18
PROVIDERS: PCP Family Medicine; Visit Provider Family Medicine
DX: G20.C Parkinsonism, unspecified (principal); R53.1 Weakness; I10 Essential (primary) hypertension

== ENCOUNTER → 2025-02-16 14:17 | Outpatient (BNVA) | payer MEDICARE, SELFPAY | PROVIDERS: PCP Family Medicine; Visit Provider Family Medicine | DX: G20.C Parkinsonism, unspecified (principal); R53.1 Weakness; I10 Essential (primary) hypertension | CPT/HCPCS: 96127; 99212 ==

== ENCOUNTER 2025-02-20 13:42 | Outpatient (AMB) | payer MEDICARE, SELFPAY ==
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
[2025-02-20 13:52] VITALS: BMI 23.4
== END 2025-02-20 14:16 | disposition home or self-care (01) ==
LOC: HO.HSMS 13:43
PROVIDERS: PCP Family Medicine; Visit Provider Psychiatry & Neurology Neurology
DX: G20.A1 Parkinson's disease without dyskinesia, without mention of fluctuations (principal)
CPT/HCPCS: 99214; G2211

== ENCOUNTER → 2025-02-20 13:42 | Outpatient (BNVA) | payer MEDICARE, SELFPAY | PROVIDERS: PCP Family Medicine; Visit Provider Psychiatry & Neurology Neurology | DX: G20.A1 Parkinson's disease without dyskinesia, without mention of fluctuations (principal) | CPT/HCPCS: 99212 ==

== ENCOUNTER → 2025-03-01 09:13 | Outpatient (BNVA) | payer BC, SELFPAY | PROVIDERS: PCP Family Medicine; Visit Provider Dietitian, Registered ==

== ENCOUNTER 2025-03-06 13:45 | Outpatient (AMB) | payer BC, SELFPAY ==
--- NOTE | 2025-03-06 14:07 | MHC.PC.OV ---
Vital Signs 03/06/25 14:08 Height 5 ft 6 in Weight 145 lb 6 oz BMI 23.5 BP 106/60 Blood Pressure Location Rt brachial Position Sitting Respiration 14 Pulse 82 Pulse Source Pulse Oximeter Temp 98.2 F Temp Source Oral Pulse Oximetry (%) 97 Oxygen Delivery Method Room Air Intake Visit Reasons: fmla paperwork Intake Note: fmla paperwork Media Traffic Manager Required: No Allergies oxycodone [From Percocet] Allergy (Mild, Verified 03/06/25 14:08) leaves her juan carlos ciarra Medication List - Last Reconciled 03/06/25 by Paras Alicea MD amlodipine 5 mg PO DAILY 90 days aspirin 81 mg PO DAILY calcium carbonate-vitamin D3 600 mg-10 mcg (400 unit) caps PO carbidopa-levodopa 25-100 mg 1 tab PO TID docusate sodium (Colace) 100 mg PO DAILY ibuprofen 600 mg PO Q8H PRN lisinopril 20 mg PO DAILY 90 days Tobacco use date assessed: 02/16/25 Dental Screening Dental Screen Date: 02/16/25 HPI fmla paperwork HPI Details Patient?presents?for?FMLA?paperwork?for?continuous?leave?due?to?new?diagnosis?of?Parkinson's. She?has?started?carbidopa-levodopa?and?notes?that?this?is?making?her?dizzy?at?times. She?has?been?somewhat?unsteady She?is?also?starting?physical?therapy?which?she?says?is?rather?intense. 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 Lyme disease HTN (hypertension) Surgical History H/O dilation and curettage Hx of tonsillectomy Family History Mother CHF (congestive heart failure) Dementia Type 2 diabetes mellitus Father Heart attack Prostate cancer Sister Pancreatic cancer Brother Prostate cancer Social History Household Members: Spouse Housing: House Do you presently have visiting nurse or other home services: No Alcohol intake: current Comment: rare Patient Tobacco Use Status: Never used Tobacco e-Cigarette/Vaping Use: Never Used Advance Directives Date on File: 07/19/21 service: No Current occupational status: employed 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 Cognitive needs: No Hearing needs: No Vision needs: Yes (patient wears glasses) Questionnaire Thrive Questionnaire Date Thrive assessed: 12/08/24 I am a: Patient What is your living situation today?: I have a steady place to live Within the past 12 months, did the food you bought not last and you didn't have the money to get more?: Never true Within the past 12 months, did you worry whether your food would run out before you got money to buy more?: Never true Do you have trouble paying for medicines?: No Do you have trouble getting transportation to medical appointments?: No Do you have trouble paying your heating and electricity bill?: No Do you have trouble taking care of your child, family member or friend?: No Do you have trouble with day-to-day activities such as bathing, preparing meals, shopping, managing finances, etc.?: No Are you currently unemployed and looking for a job?: No Are you interested in more education?: No Please select the resources that you would like help with: None Currently or been in a relationship where the following occur: No concerns reported THRIVE Score: 0 FIONA-7 AMB Questionnaire FIONA-7 Date FIONA - 7 assessed: 02/16/25 Source: Developed by Drs. Melvin Benites, Ansley Howe, Brice Ward and colleagues, with an educational naman from [employer]. Review of Systems Const Denies chills, Denies fatigue, Denies fever(s), Denies headache(s) and Reports weakness ENT Reports dizziness and Denies headache(s) Card Denies chest pain, Denies lightheadedness, Denies dyspnea and Denies other (Palpitations) Resp Denies cough, Denies dyspnea, Denies wheezing and Denies other ( shortness of breath) Musc Denies numbness and Denies tingling Neuro Details: Notes?some?unsteadiness.??Improving?with?physical?therapy Reports dizziness, Denies headache(s), Denies numbness, Denies tingling, Denies paresthesias and Reports weakness Psych Denies anxiety and Denies depression Endo Denies fatigue Aller/Immun Denies wheezing Physical exam (Primary Care) Vital Signs: Last Vital Signs Temp 98.2 F 03/06/25 14:08 Pulse 82 03/06/25 14:08 Resp 14 03/06/25 14:08 BP 106/60 03/06/25 14:08 Pulse Ox 97 03/06/25 14:08 Oxygen Delivery Method Room Air 03/06/25 14:08 BMI result Body Mass Index 23.5 Tobacco/Smoking Status: Tobacco use Status Tobacco use date assessed 02/16/25 03/06/25 14:12 Patient Tobacco Use Status Never used Tobacco 03/06/25 14:12 e-Cigarette/Vaping Use Never Used 03/06/25 14:12 Thrive Assessment: Date of Thrive Assessment Date Thrive assessed 12/08/24 03/06/25 14:12 Currently or been in a relationship where the following occur: No concerns reported Const General: no acute distress and well developed Nutritional Appearance: well nourished Orientation/consciousness: patient oriented x3 HENMT Head: Yes normocephalic and Yes atraumatic Eyes General: appearance normal, both eyes and all related structures Pupils: Equal, round and reactive pupils present EOM: EOMs intact bilaterally Resp Effort & Inspection: normal respiratory effort Auscultation: clear to auscultation bilaterally Cardio Rate: regular rate Rhythm: regular rhythm Heart sounds: S1 normal heart sound present, S2 normal heart sound present, no gallops, no murmurs and no rubs Neuro Other: Mild?unsteadiness. Tremor?is?improved?with?medication. General: patient oriented x3 and gait normal Cranial nerves: Yes Equal, round and reactive pupils present Psych Affect: normal affect Coding Level of Care Code Est Pt Level 3 (20418) Diagnoses Parkinsonism G20.C Assessment & Plan Assessment & Plan (1) Parkinsonism: Code(s): G20.C - Parkinsonism, unspecified Category: Medical Plan: Fairly?new?diagnosis?of?parkinsonism. Tolerating?carbidopa?levodopa?but?with?some?dizziness Has?begun?physical?therapy?and?notes?is?rather?intense Filled?out?FMLA?paperwork?to?give?her?1?month?to?acclimate?to?new?medication?and?physical?therapy. She?will?call?or?return?to?office?if?she?is?having?any?new?concerning?issues?or?needs?additional?time.
[2025-03-06 14:08] VITALS: BP 106/60; PULSE 82; RESP 14; TEMP 36.8; O2SAT 97; BMI 23.5
== END 2025-03-06 16:24 | disposition home or self-care (01) ==
LOC: HO.HMCFM 13:46
PROVIDERS: PCP Family Medicine; Visit Provider Family Medicine
DX: G20.C Parkinsonism, unspecified (principal)

== ENCOUNTER → 2025-03-06 13:45 | Outpatient (BNVA) | payer BC, SELFPAY | PROVIDERS: PCP Family Medicine; Visit Provider Family Medicine ==

== ENCOUNTER → 2025-04-04 10:51 | Outpatient (BNVA) | payer BC, SELFPAY | PROVIDERS: PCP Family Medicine; Visit Provider Dietitian, Registered ==

== ENCOUNTER 2025-05-18 14:44 | Outpatient (AMB) | payer BC, SELFPAY ==
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
[2025-05-18 14:45] VITALS: BP 110/70
== END 2025-05-18 15:07 | disposition home or self-care (01) ==
LOC: HO.HSMS 14:44
PROVIDERS: PCP Family Medicine; Visit Provider Psychiatry & Neurology Neurology
DX: G20.C Parkinsonism, unspecified (principal)
CPT/HCPCS: 99214

== ENCOUNTER 2025-05-23 14:06 | Outpatient (AMB) | payer MEDICARE, SELFPAY ==
--- NOTE | 2025-05-23 14:21 | MHC.PC.OV ---
Vital Signs 05/23/25 14:29 Height 5 ft 6 in Weight 147 lb 8 oz BMI 23.8 BP 110/60 Blood Pressure Location Rt brachial Position Sitting Respiration 14 Pulse 91 Pulse Source Pulse Oximeter Temp 97.7 F Temp Source Oral Pulse Oximetry (%) 96 Oxygen Delivery Method Room Air Intake Visit Reasons: f/u chronic conditions Intake Note: patient is scheduled for follow up on chronic conditions Production Officer Required: No Allergies oxycodone (From Percocet) Allergy (Mild, Verified 05/23/25 14:23) leaves her ciarra rangel Tobacco use date assessed: 02/16/25 Dental Screening Dental Screen Date: 02/16/25 HPI f/u chronic conditions HPI Details 70 y/o female presents to f/u chronic conditions. Had a fairly new dx of parkinsonism. Had been tolerating carbidopa levodopa but with some dizziness. Had followed up with neurology 05/18/25. Pt notes she had finished her physical therapy program. She is still doing the exercises. Blood pressure today 110/60, 91p. He is on lisinopril 20mg, amlodipine 5mg daily. Pt notes she has been getting low values at home around the afternoon. Had some unintentional weight loss. Weight has been improving. HPI Comments History of Present Illness Details Documentation assistance for Paras Alicea MD, was provided by Miguel Clay,? Diffusion Furnace Operator on 05/23/2025 at 3:34 PM EST. I, Dr. Alicea, have read, observed, and verified documentation. ? 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 Lyme disease HTN (hypertension) Surgical History H/O dilation and curettage Hx of tonsillectomy Family History Mother CHF (congestive heart failure) Dementia Type 2 diabetes mellitus Father Heart attack Prostate cancer Sister Pancreatic cancer Brother Prostate cancer Social History Household Members: Spouse Housing: House Do you presently have visiting nurse or other home services: No Alcohol intake: current Comment: rare Patient Tobacco Use Status: Never used Tobacco e-Cigarette/Vaping Use: Never Used Advance Directives Date on File: 07/19/21 service: No Current occupational status: employed 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 Cognitive needs: No Hearing needs: No Vision needs: Yes (patient wears glasses) Questionnaire Thrive Questionnaire Date Thrive assessed: 12/08/24 I am a: Patient What is your living situation today?: I have a steady place to live Within the past 12 months, did the food you bought not last and you didn't have the money to get more?: Never true Within the past 12 months, did you worry whether your food would run out before you got money to buy more?: Never true Do you have trouble paying for medicines?: No Do you have trouble getting transportation to medical appointments?: No Do you have trouble paying your heating and electricity bill?: No Do you have trouble taking care of your child, family member or friend?: No Do you have trouble with day-to-day activities such as bathing, preparing meals, shopping, managing finances, etc.?: No Are you currently unemployed and looking for a job?: No Are you interested in more education?: No Please select the resources that you would like help with: None Currently or been in a relationship where the following occur: No concerns reported THRIVE Score: 0 FIONA-7 AMB Questionnaire FIONA-7 Date FIONA - 7 assessed: 02/16/25 Source: Developed by Drs. Melvin Benites, Ansley Howe, Brice Ward and colleagues, with an educational naman from [employer]. Review of Systems Const Denies chills, Denies fatigue, Denies fever(s), Denies headache(s) and Denies weakness ENT Denies dizziness and Denies headache(s) Card Denies dyspnea Resp Denies cough, Denies dyspnea, Denies wheezing and Denies other (shortness of breath) Musc Denies numbness and Denies tingling Neuro Denies dizziness, Denies headache(s), Denies numbness, Denies tingling and Denies weakness Psych Denies anxiety and Denies depression Endo Denies fatigue Aller/Immun Denies wheezing Physical exam (Primary Care) Vital Signs: Last Vital Signs Temp 97.7 F 05/23/25 14:29 Pulse 91 05/23/25 14:29 Resp 14 05/23/25 14:29 BP 110/60 05/23/25 14:29 Pulse Ox 96 05/23/25 14:29 Oxygen Delivery Method Room Air 05/23/25 14:29 BMI result Body Mass Index 23.8 Tobacco/Smoking Status: Tobacco use Status Tobacco use date assessed 02/16/25 05/23/25 14:23 Patient Tobacco Use Status Never used Tobacco 05/23/25 14:23 e-Cigarette/Vaping Use Never Used 05/23/25 14:23 Thrive Assessment: Date of Thrive Assessment Date Thrive assessed 12/08/24 05/23/25 14:23 Currently or been in a relationship where the following occur: No concerns reported Const General: well developed; No acute distress Nutritional Appearance: well nourished Orientation/consciousness: patient oriented x3 HENMT Head: Yes normocephalic and Yes atraumatic Eyes General: appearance normal, both eyes and all related structures Pupils: Equal, round and reactive pupils present EOM: EOMs intact bilaterally Resp Effort & Inspection: normal respiratory effort Auscultation: clear to auscultation bilaterally Cardio Rate: regular rate Rhythm: regular rhythm Heart sounds: S1 normal heart sound present, S2 normal heart sound present, no gallops, no murmurs and no rubs Neuro General: patient oriented x3 and gait normal Cranial nerves: Yes Equal, round and reactive pupils present Psych Affect: normal affect Coding Level of Care Code Est Pt Level 4 (48061) Diagnoses HTN (hypertension) I10 Parkinsonism, unspecified Parkinsonism type G20.C Parkinsonism type: unspecified Unintentional weight loss R63.4 Screening for colon cancer Z12.11 Immunization counseling Z71.85 Assessment & Plan Assessment & Plan (1) HTN (hypertension): Code(s): I10 - Essential (primary) hypertension Category: Medical Plan: Blood?pressure?is?controlled.??Goal?is?less?than?140/90 However,?patient?notes?that?her?blood?pressures?at?home?have?been?rather?low.??Asymptomatic?presently. Hydrate?well She?can?try?breaking?lisinopril?in?half?and?continuing?amlodipine?as?prescribed if low BP persists or worsens (2) Parkinsonism: Code(s): G20.C - Parkinsonism, unspecified Category: Medical Qualifiers: Parkinsonism type: unspecified Qualified Code(s): G20.C - Parkinsonism, unspecified Plan: Taking?carbidopa?levodopa?as?prescribed Has?undergone?physical?therapy Patient?is?doing?rather?well?and?gait?is?steady.??Minimal?or?no?tremor Continue?medications?as?prescribed?and?follow-up?with?Neurology?as?recommended (3) Unintentional weight loss: Code(s): R63.4 - Abnormal weight loss Category: Medical Plan: Had?appointment?with?[facility] [employer] [facility] Weight?loss?has?stopped?and?she?has?gained?back?couple?of?lb Will?continue?monitor (4) Screening for colon cancer: Code(s): Z12.11 - Encounter for screening for malignant neoplasm of colon Category: Medical Plan: Patient?has?a?colonoscopy?scheduled?for?July Encouraged?her?to?follow?through?with?this (5) Immunization counseling: Code(s): Z71.85 - Encounter for immunization safety counseling Category: Medical Plan: Patient?had?a?pneumonia?shot?earlier?this?month?and?is?up-to-date Orders: Referrals Podiatry Referral D36.10 - Benign neoplasm of peripheral nerves and autonomic nervous system, unspecified
[2025-05-23 14:29] VITALS: BP 110/60; PULSE 91; RESP 14; TEMP 36.5; O2SAT 96; BMI 23.8
== END 2025-05-23 15:47 | disposition home or self-care (01) ==
LOC: HO.HMCFM 14:07
PROVIDERS: PCP Family Medicine; Visit Provider Family Medicine
DX: I10 Essential (primary) hypertension (principal); G20.C Parkinsonism, unspecified; R63.4 Abnormal weight loss; Z12.11 Encounter for screening for malignant neoplasm of colon; Z71.85 Encounter for immunization safety counseling

== ENCOUNTER → 2025-05-23 14:06 | Outpatient (BNVA) | payer MEDICARE, SELFPAY | PROVIDERS: PCP Family Medicine; Visit Provider Family Medicine | DX: I10 Essential (primary) hypertension (principal); G20.C Parkinsonism, unspecified; R63.4 Abnormal weight loss; Z71.85 Encounter for immunization safety counseling | CPT/HCPCS: 99212 ==

== ENCOUNTER 2025-08-24 07:41 | Outpatient (REF) | payer MEDICARE, SELFPAY ==
--- NOTE | ~2025-08-24 | MM_ITS ---
EXAMINATION: MM SCREENING DIGITAL BREAST TOMOSYNTHESIS, BILATERAL CLINICAL INFORMATION: Screening. Asymptomatic. COMPARISON: Comparison made to multiple prior, most recent August 12, 2024, and most remote January 06, 2018. TECHNIQUE: Digital breast tomosynthesis is performed in mediolateral oblique and craniocaudal views along with computer-aided detection (CAD). Synthesized 2D images are generated from the tomosynthesis. FINDINGS: BREAST COMPOSITION: There are scattered areas of fibroglandular density. BILATERAL BREASTS: No significant masses, suspicious calcifications or other abnormalities are seen in either breast. MM/MM tomosynthesis screening BI IMPRESSION: BILATERAL BREASTS: Negative, no mammographic evidence of malignancy. Normal interval follow-up is recommended in 12 months. ASSESSMENT: BI-RADS: Category 1: Negative RECOMMENDATION: Routine annual mammography screening. FOLLOW-UP: 1 year F/U This examination should not preclude the clinical evaluation of a suspicious palpable abnormality. This patient's information was entered into a reminder system with a target due date for their next mammogram. Electronically signed by: Priyank Goode MD 08/25/2025 07:28 PM EDT
== END 2025-08-24 07:42 | disposition home or self-care (01) ==
LOC: HO.MAMMO 07:41
PROVIDERS: PCP Family Medicine; Visit Provider Family Medicine
DX: Z12.31 Encounter for screening mammogram for malignant neoplasm of breast (principal)
CPT/HCPCS: 77063; 77067

== ENCOUNTER → 2025-08-24 08:00 | Outpatient (BNV) | payer MEDICARE, SELFPAY | PROVIDERS: PCP Family Medicine; Visit Provider Radiology Body Imaging | DX: Z12.31 Encounter for screening mammogram for malignant neoplasm of breast (principal) | CPT/HCPCS: 77063; 77067 ==

== ENCOUNTER 2025-08-24 14:13 | Outpatient (AMB) | payer MEDICARE, SELFPAY ==
--- NOTE | 2025-08-24 14:22 | MHC.PC.OV ---
Vital Signs 08/24/25 14:27 Height 5 ft 6 in Weight 146 lb 6 oz BMI 23.6 BP 118/67 Blood Pressure Location Rt brachial Position Sitting Respiration 16 Pulse 78 Pulse Source Pulse Oximeter Temp 98.1 F Temp Source Oral Pulse Oximetry (%) 100 Oxygen Delivery Method Room Air Intake Visit Reasons: f/u HTN, chronic conditions Intake Note: patient here for follow up on HTN and chronic conditions Sql Server Dba Developer Required: No Is last menstrual period known: No Post menopausal: No Patient : No Allergies oxycodone (From Percocet) Allergy (Mild, Verified 08/24/25 14:25) leaves her ciarra arngel Medication List - Last Reconciled 08/24/25 by Paras Alicea MD amlodipine 5 mg PO DAILY 90 days aspirin 81 mg PO 3XW biotin mcg PO calcium carbonate-vitamin D3 600 mg-10 mcg (400 unit) caps PO carbidopa-levodopa 25-100 mg 1 tab PO TID docusate sodium (Colace) 100 mg PO DAILY lisinopril 5 mg PO DAILY magnesium glycinate 100 mg PO ONCE mecobalamin (vitamin B12) mcg PO Tobacco use date assessed: 08/24/25 Fall risk assessment: No Falls in past year Last assessed Fall Risk: 08/24/25 Dental Screening Dental Screen Date: 08/24/25 Did you have a dental visit in the last 12 months?: Yes Did you have a dental problem in the last 6 months where you did not have access to dental care?: No Was dental information given to patient?: Patient has dentist HPI f/u HTN, chronic conditions HPI Details 70 y/o female presents to f/u hypertension, chronic conditions including parkinsonism. Also presents for a physical. BP today 118/67, 78p. She is on lisinopril 5mg, amlodipine 5mg daily. Continues to do her exercises and she notes she has been feeling well. She continues taking her carbidopa-levodopa 25-100mg t.i.d. Ongoing complaints of neuroma. 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 Lyme disease HTN (hypertension) Surgical History H/O dilation and curettage Hx of tonsillectomy Family History Mother CHF (congestive heart failure) Dementia Type 2 diabetes mellitus Father Heart attack Prostate cancer Sister Pancreatic cancer Brother Prostate cancer Social History Household Members: Spouse Housing: House Do you presently have visiting nurse or other home services: No Alcohol intake: current Comment: rare Patient Tobacco Use Status: Never used Tobacco e-Cigarette/Vaping Use: Never Used Advance Directives Date on File: 07/19/21 service: No Current occupational status: employed 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 Current occupational exposures/hazards: No Cognitive needs: No Hearing needs: No Vision needs: Yes (patient wears glasses) Questionnaire Thrive Questionnaire Date Thrive assessed: 12/08/24 I am a: Patient What is your living situation today?: I have a steady place to live Within the past 12 months, did the food you bought not last and you didn't have the money to get more?: Never true Within the past 12 months, did you worry whether your food would run out before you got money to buy more?: Never true Do you have trouble paying for medicines?: No Do you have trouble getting transportation to medical appointments?: No Do you have trouble paying your heating and electricity bill?: No Do you have trouble taking care of your child, family member or friend?: No Do you have trouble with day-to-day activities such as bathing, preparing meals, shopping, managing finances, etc.?: No Are you currently unemployed and looking for a job?: No Are you interested in more education?: No Please select the resources that you would like help with: None Currently or been in a relationship where the following occur: No concerns reported THRIVE Score: 0 FIONA-7 AMB Questionnaire FIONA-7 Date FIONA - 7 assessed: 02/16/25 Source: Developed by Drs. Melvin Benites, Ansley Howe, Brice Ward and colleagues, with an educational naman from [employer]. Review of Systems Const Denies chills, Denies fatigue, Denies fever(s), Denies headache(s) and Denies weakness Eyes Denies change in vision ENT Denies dizziness and Denies headache(s) Card Denies dyspnea Resp Denies cough, Denies dyspnea, Denies wheezing and Denies other (shortness of breath) GI Denies abdominal pain, Denies melena, Denies hematochezia, Denies change in bowel habits, Denies dyspepsia and Denies nausea Denies hematuria and Denies dysuria Musc Denies numbness and Denies tingling Skin/Breast Denies rash, Denies unusual bruising and Denies wounds Neuro Denies dizziness, Denies headache(s), Denies numbness, Denies Sensory deficit (Neuro), Denies tingling and Denies weakness Psych Denies anxiety and Denies depression Endo Denies fatigue Vidal/Lymph Denies easy bleeding and Denies easy bruising Aller/Immun Denies wheezing Physical exam (Primary Care) Vital Signs: Last Vital Signs Temp 98.1 F 08/24/25 14:27 Pulse 78 08/24/25 14:27 Resp 16 08/24/25 14:27 BP 118/67 08/24/25 14:27 Pulse Ox 100 08/24/25 14:27 Oxygen Delivery Method Room Air 08/24/25 14:27 BMI result Body Mass Index 23.6 Tobacco/Smoking Status: Tobacco use Status Tobacco use date assessed 08/24/25 08/24/25 14:29 Patient Tobacco Use Status Never used Tobacco 08/24/25 14:24 e-Cigarette/Vaping Use Never Used 08/24/25 14:24 Thrive Assessment: Date of Thrive Assessment Date Thrive assessed 12/08/24 08/24/25 14:24 Currently or been in a relationship where the following occur: No concerns reported Const General: well developed; No acute distress Nutritional Appearance: well nourished Orientation/consciousness: patient oriented x3 HENMT Head: Yes normocephalic and Yes atraumatic Ears: hearing grossly normal bilaterally and TM's normal bilaterally General nose exam: Normal external nose present and Normal nares present Mouth: Normal oral and palatal mucosa present and moist mucous membranes Teeth and gingiva: dentition normal Throat: Yes posterior oropharynx normal Eyes General: appearance normal, both eyes and all related structures Pupils: Equal, round and reactive pupils present EOM: EOMs intact bilaterally Neck Neck: Yes normal visual inspection, Yes no lymphadenopathy and Yes trachea midline Thyroid: Thyroid normal Carotids: no bruits Lymphatic: no lymphadenopathy noted Chest Chest palpation & inspection: normal inspection of the chest Resp Effort & Inspection: normal respiratory effort Auscultation: clear to auscultation bilaterally Cardio Rate: regular rate Rhythm: regular rhythm Heart sounds: S1 normal heart sound present, S2 normal heart sound present, no gallops, no murmurs and no rubs Bruits: no abdominal aortic bruits and no carotid bruits GI Palpation (GI): No Abdominal aortic bruit present, Soft to palpation, nontender, No hepatosplenomegaly present and No Rebound tenderness present Auscultation: normal bowel sounds General: Yes no CVA tenderness Back/Spine/Pelvis Back: no CVA tenderness Cervical Spine: cervical ROM normal and No Cervical spine tenderness Thoracic/Lumbar Spine: thoraco-lumbar ROM normal, No pain with thoraco-lumbar ROM, No thoracic spinal tenderness and No lumbar spinal tenderness Skin Lesions: no lesions Rashes: no rashes Trauma: no lacerations or abrasions Wounds: no wounds Nails: normal Neuro General: patient oriented x3 and gait normal Cranial nerves: Yes Equal, round and reactive pupils present Cognition (Neuro): normal cognition Gait exam (Neuro): Normal gait present Motor exam (neuro): 5/5 motor strength present throughout Sensory Exam: No Sensory deficit (Neuro) Deep tendon reflexes (DTR's): Right patellar reflex intensity grade: 2+ and Left patellar reflex intensity grade: 2+ Extrem General: Yes normal to inspection and No edema Psych Appearance: grossly normal Affect: normal affect Attitude: cooperative Thought process: Normal thought process present Coding Level of Care Code Est Pt Level 3 (51152) Est Pt Prev Care >65y(49956) Diagnoses Adult general medical exam Z00.00 Parkinsonism, unspecified Parkinsonism type G20.C Parkinsonism type: unspecified HTN (hypertension) I10 Neuroma D36.10 Breast cancer screening by mammogram Z12.31 Screening for colon cancer Z12.11 Assessment & Plan Assessment & Plan (1) Adult general medical exam: Code(s): Z00.00 - Encounter for general adult medical examination without abnormal findings Category: Medical Plan: 70-year-old female presents for complete physical exam Encouraged healthy diet with active lifestyle and plenty of exercise (2) Parkinsonism: Code(s): G20.C - Parkinsonism, unspecified Category: Medical Qualifiers: Parkinsonism type: unspecified Qualified Code(s): G20.C - Parkinsonism, unspecified Plan: She is taking carbidopa levodopa as prescribed with good affect. Had completed physical therapy and continues exercises. Good balance and strength Good cognition and speech Continue current medication Follow-up with Neurology as recommended Continue exercise (3) HTN (hypertension): Code(s): I10 - Essential (primary) hypertension Category: Medical Plan: Blood pressures have been a little low She is on amlodipine and lisinopril. She can discontinue lisinopril at this point. Continue to monitor blood pressure at home Will follow-up in a few months (4) Neuroma: Code(s): D36.10 - Benign neoplasm of peripheral nerves and autonomic nervous system, unspecified Category: Medical Plan: Right foot plain and neuroma Had seen Podiatry without improvement Referred to Ortho (5) Breast cancer screening by mammogram: Code(s): Z12.31 - Encounter for screening mammogram for malignant neoplasm of breast Category: Medical Plan: Mammogram was acquired today. Results pending. (6) Screening for colon cancer: Code(s): Z12.11 - Encounter for screening for malignant neoplasm of colon Category: Medical Plan: Had referred patient to Gastroenterology. She is awaiting an appointment Advised she call ensure she gets appointments. Orders: Orders TSH reflex Free T4 Today Z00.00 - Encounter for general adult medical examination without abnormal findings Vitamin B12 and Folate Today E53.8 - Deficiency of other specified B group vitamins Vitamin D 25-OH Total Today E55.9 - Vitamin D deficiency, unspecified Comprehensive [place]. Panel Fast Today Z00.00 - Encounter for general adult medical examination without abnormal findings Complete Blood Count Auto Diff Today Z00.00 - Encounter for general adult medical examination without abnormal findings Microalbumin, Random (w Creat) Today I10 - Essential (primary) hypertension Lipid Panel Today Z00.00 - Encounter for general adult medical examination without abnormal findings UA CC w/rflx Micro + Cult Today Z00.00 - Encounter for general adult medical examination without abnormal findings Referrals [facility] Referral Z00.00 - Encounter for general adult medical examination without abnormal findings Orthopedics Referral M79.671 - Pain in right foot Medications: Discontinued lisinopril Discontinued Reason: Doctor's Order 5 mg PO DAILY 30 tabs 0RF
[2025-08-24 14:27] VITALS: BP 118/67; PULSE 78; RESP 16; TEMP 36.7; O2SAT 100; BMI 23.6
== END 2025-08-24 14:53 | disposition home or self-care (01) ==
LOC: HO.HMCFM 14:14
PROVIDERS: PCP Family Medicine; Visit Provider Family Medicine
DX: Z00.00 Encounter for general adult medical examination without abnormal findings (principal); I10 Essential (primary) hypertension; G20.C Parkinsonism, unspecified; D36.10 Benign neoplasm of peripheral nerves and autonomic nervous system, unspecified; Z12.31 Encounter for screening mammogram for malignant neoplasm of breast; Z12.11 Encounter for screening for malignant neoplasm of colon

== ENCOUNTER 2025-09-21 07:48 | Outpatient (REF) | payer MEDICARE, SELFPAY ==
--- NOTE | ~2025-09-21 | XR_ITS ---
EXAMINATION: XR FOOT 3 OR MORE VIEWS RIGHT HISTORY: M79.671 - Pain in right foot COMPARISON: There are no prior studies available for comparison. FINDINGS: Three views of the right foot are submitted. Osseous mineralization is normal. There is no fracture or dislocation. The joint spaces are preserved. The soft tissues are unremarkable. XR/XR foot RT min 3V IMPRESSION: Unremarkable examination of the right foot. Electronically signed by: Melvin Roberts MD 09/21/2025 02:32 PM EDT
== END 2025-09-21 07:49 | disposition home or self-care (01) ==
LOC: HO.XRAY 07:48
PROVIDERS: PCP Family Medicine; Visit Provider Student in an Organized Health Care Education/Training Program
DX: G57.61 Lesion of plantar nerve, right lower limb (principal); M79.671 Pain in right foot
CPT/HCPCS: 73630

== ENCOUNTER 2025-09-21 07:48 | Outpatient (AMB) | payer MEDICARE, SELFPAY ==
[2025-09-21 08:00] VITALS: BMI 22.8
--- NOTE | 2025-09-21 08:00 | A.OFFVIS_ITS ---
Vital Signs 09/21/25 08:00 Height 5 ft 6 in Weight 141 lb BMI 22.8 Intake Visit Reasons: Pain in right foot Intake Note: Angelika is a 70 year old female who presents today as a new patient for an evaluation of her right foot pain. Pain is located in the ball of the foot and she has had this discomfort for about 4-5 years. She has tried previous foot injection and the last time she received the cortisone shot was back in june and has found no relief. Patient has also tried a metatarsal pad and found that this has helped relieve the pain slightly. She states Dr. Childs her first executive administrative assistant diagnosed her with a neuroma. Allergies oxycodone (From Percocet) Allergy (Mild, Verified 09/21/25 08:01) leaves her cairra rangel Medication List - Last Reconciled 09/21/25 by Sandra Bourne DPM amlodipine 5 mg PO DAILY 90 days aspirin 81 mg PO 3XW biotin mcg PO calcium carbonate-vitamin D3 600 mg-10 mcg (400 unit) caps PO carbidopa-levodopa 25-100 mg 1 tab PO TID docusate sodium (Colace) 100 mg PO DAILY magnesium glycinate 100 mg PO ONCE mecobalamin (vitamin B12) mcg PO HPI Comments Details: The patient is a 70-year-old female with a PMH as seen below presenting with right foot pain with a history of a Boswell's neuroma. The condition started 4-5 years ago, and initial management included x-rays and various padding techniques, followed by cortisone injections which initially provided relief. Subsequent injections were less effective, and the patient is exploring further treatment options. The patient states the pain is exacerbated with walking and there is relief upon rest. She states she experiences mild pain. The patient has been diagnosed with Parkinson's disease, following a period of long COVID that resulted in significant weight loss and fatigue. She underwent intensive physical therapy and continues to exercise regularly, walking three miles daily, which has contributed to a dramatic improvement in her condition. The patient reports peripheral edema, which she attributes to amlodipine use, and has been managing it by wearing larger-sized socks. She denies any recent pedal injuries. Denies any other pedal concerns. 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 Lyme disease HTN (hypertension) Surgical History H/O dilation and curettage Hx of tonsillectomy Family History Mother CHF (congestive heart failure) Dementia Type 2 diabetes mellitus Father Heart attack Prostate cancer Sister Pancreatic cancer Brother Prostate cancer Social History Household Members: Spouse Housing: House Do you presently have visiting nurse or other home services: No Alcohol intake: current Comment: rare Patient Tobacco Use Status: Never used Tobacco e-Cigarette/Vaping Use: Never Used Advance Directives Date on File: 07/19/21 service: No Current occupational status: employed 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 - Neurological: Reports numbness in right 4th and 5th toes since previous ganglion removal, denies new numbness or tingling - Cardiovascular: Reports swelling in ankles, denies pain in legs All systems reviewed & are unremarkable except as noted in HPI and below Physical Exam Vital Signs: BMI result Body Mass Index 22.8 Extrem Other: B/L LE Focused Physical Exam: Derm: No open lesions, abrasions, or wounds noted. No clinical signs of infection. Mild hyperpigmentation noted to legs. No ecchymosis noted. No maceration noted. No palpable mass noted. Vasc: DP pulsespalpable and PT pulses mildly palpable. CFT < 3 secs. Temp gradient warm to warm. Pedal hair absent. No varicosities noted. Mild edema noted to lower extremities. Neuro: Protective sensations grossly intact except to right 4th and 5th digits. MSK: No pain on palpation to the forefoot plantarally or dorsally. ROM of the forefoot, hindfoot, and ankle WNL. Negative squeeze test. Negative malik's sign. No crepitus noted. Nonantalgic gait unassisted noted. Results Reviewed Results Reviewed: Ordered right foot weightbearing 3 views xrays to be performed prior to next visit. Assessment & Plan Assessment & Plan (1) Right foot pain: Code(s): M79.671 - Pain in right foot Category: Medical (2) Metatarsalgia, right foot: Code(s): M77.41 - Metatarsalgia, right foot Category: Medical (3) Boswell's neuroma of right foot: Code(s): G57.61 - Lesion of plantar nerve, right lower limb Category: Medical Plan Patient was informed and verbally consented to the use of an ambient scribe for clinic note documentation during this visit. I discussed with the patient the management options for a Boswell's neuroma and metatarsalgia, including the use of metatarsal pads, shoe modifications, and the potential for surgical intervention if conservative measures are ineffective. We also reviewed the possibility of peripheral edema being related to amlodipine use and the importance of monitoring this condition and using compression stockings. I advised the patient to avoid barefoot walking to prevent exacerbation of foot discomfort. - Ordered x-rays to be performed prior to next visit. - Continue using metatarsal pads and consider shoe modifications/inserts to alleviate foot discomfort. - Monitor peripheral edema, wear compression stockings, and consider adjusting amlodipine dosage as per PCP if swelling persists. - Continue at home exercises. RTC in 3 weeks for re-evaluation. Orders: Orders XR foot RT min 3V Today G57.61 - Lesion of plantar nerve, right lower limb, M77.41 - Metatarsalgia, right foot, M79.671 - Pain in right foot Coding Level of Care Code New Pt Level 4 (60455) Diagnoses Right foot pain M79.671 Metatarsalgia, right foot M77.41 Boswell's neuroma of right foot G57.61 Time Spent (min) 45
== END 2025-09-21 08:18 | disposition home or self-care (01) ==
LOC: HO.HPODS 07:49
PROVIDERS: PCP Family Medicine; Visit Provider Student in an Organized Health Care Education/Training Program
DX: M79.671 Pain in right foot (principal); M77.41 Metatarsalgia, right foot; G57.61 Lesion of plantar nerve, right lower limb
CPT/HCPCS: 99204

== ENCOUNTER → 2025-09-21 13:54 | Outpatient (BNV) | payer MEDICARE, SELFPAY | PROVIDERS: PCP Family Medicine; Visit Provider Radiology Diagnostic Radiology | DX: M79.671 Pain in right foot (principal) | CPT/HCPCS: 73630 ==

== ENCOUNTER 2025-10-04 12:47 | Outpatient (AMB) | payer MEDICARE, SELFPAY ==
[2025-10-04 12:58] VITALS: BP 136/76; PULSE 87; BMI 23.6
--- NOTE | 2025-10-04 12:58 | A.OFFVIS_ITS ---
Vital Signs 10/04/25 12:58 Height 5 ft 6 in Weight 146 lb BMI 23.6 BP 136/76 Blood Pressure Location Lt brachial Position Sitting Pulse 87 Intake Visit Reasons: increase weight loss Intake Note: New patient in office today for colonoscopy screening. CC: Patient states that she tends to be more on the constipation side. She also reports that she was diagnosed with Parkinsons last December. Last colonoscopy was on 08/07/22 and was advised to repeat it in 3 years. Customer Operations Associate Required: No Accompanied by: Self / Same As Patient Allergies oxycodone (From Percocet) Allergy (Mild, Verified 10/24/25 13:58) leaves her ciarra rangel HPI HPI increase weight loss: Details: 70-year-old female here for initial evaluation of unexplained weight loss. She is referred by Paras [facility]a. PMX Parkinson's disease -G-n-w-t-o-r-y- -o-f- -M-I- --- -p-t- -z-o-x-i-e-s- Osteoporosis Hypertension -P-y-h-o-n-i-c- -k-l-u-n-e-y- -r-r-w-e-a-s-e- -s-t-a-g-e- -3- History of compression fracture L4-L5 * SURGICAL HISTORY D&C Tonsillectomy Colonoscopy= 2011=neg scope 2021= sessile TA, 2022 repeat negative study-have [facility] Normal echocardiogram -2002 * ALLERGIES Oxycodone * [facility]: Laboratory Tests 12/16/24 07:51 WBC 6.0 Hgb 14.7 Hct 45.2 Plt Count 238 Estimated GFR > 60 Total Bilirubin 0.3 AST 24 ALT 15 Alkaline Phosphatase 67 TSH 1.44 TODAY'S VISIT She had a colonoscopy in 2022 at [facility] and they recommended a 3 year repeat. However, the information is not available to me to suggest why she has a shortened interval. I do not know the size of the sessile TA removed in 2021 but pathology showed it to be a normal tubular adenoma with no dysplasia or other unusual characteristics. The colonoscopy in 2022 was completely negative. Bowel or upper GI problems: She at times suffers CIC helped with magnesium, no upper GI problems. Cardiac or respiratory problems: No Problems with anesthesia or sedation: No Infectious disease problems: No Family history: No PFSH Medical History (Updated 10/24/25 @ 14:47 by Miguel Clay) Osteopenia H/O echocardiogram Fracture, lumbar vertebra, compression Adult general medical exam Laboratory exam ordered as part of routine general medical examination Parkinsonism Immunization counseling Lyme disease Breast cancer screening by mammogram Screening for cervical cancer Screening for colon cancer Screening for osteoporosis Boswell's neuroma of right foot Metatarsalgia, right foot Parkinson's disease without dyskinesia Back pain Neck pain Hyperreflexia Weakness Spinal compression fracture 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 HTN (hypertension) Surgical History (Updated 10/04/25 @ 13:51 by AGUSTIN Sloan) H/O eye surgery H/O colonoscopy H/O dilation and curettage Hx of tonsillectomy Family History Mother CHF (congestive heart failure) Dementia Type 2 diabetes mellitus Father Heart attack Prostate cancer Sister Pancreatic cancer Brother Prostate cancer Social History Household Members: Spouse Housing: House Do you presently have visiting nurse or other home services: No Alcohol intake: current Comment: rare Patient Tobacco Use Status: Never used Tobacco e-Cigarette/Vaping Use: Never Used Second Hand Smoke Exposure: No Advance Directives Date on File: 07/19/21 service: No Current occupational status: employed 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 Current occupational exposures/hazards: No Cognitive needs: No Hearing needs: No Vision needs: Yes (patient wears glasses) Review of Systems Const Denies fatigue, Denies fever(s), Denies night sweats, Denies poor appetite and Denies weight loss Eyes Details: glasses Reports requires corrective lenses ENT Reports Normal hearing present, Denies dental pain, Denies dysphagia, Denies hearing loss, Denies mouth pain, Denies odynophagia, Denies throat swelling, Denies tongue swelling and Reports other (Dentition adequate) GI Details: Denies abdominal pain, Denies melena, Denies bloating, Denies hematochezia, Denies constipation, Denies GI cramping, Denies dysphagia, Denies excessive flatus, Denies early satiety, Denies heartburn, Denies diarrhea, Denies nausea, Denies odynophagia, Denies vomiting and Denies hematemesis Skin/Breast Denies pruritus, Denies lesions, Denies rash and Denies jaundice Neuro Reports Normal hearing present and Denies Abnormal speech present Endo Denies fatigue Aller/Immun Denies throat swelling and Denies tongue swelling Physical Exam Vital Signs: Last Vital Signs Pulse 87 10/04/25 12:58 BP 136/76 10/04/25 12:58 BMI result Body Mass Index 23.6 Const General: cooperative, no acute distress, well developed and well groomed Nutritional Appearance: average body habitus and well nourished Orientation/consciousness: oriented to person, oriented to place and oriented to time Limitations: No language barrier HEENT Head: Yes normocephalic and Yes atraumatic Eyes General: appearance normal, both eyes and all related structures Pupils: Equal, round and reactive pupils present Neck Neck: Yes normal visual inspection and Yes no lymphadenopathy Thyroid: Thyroid normal Resp Effort & Inspection: normal respiratory effort and able to speak in complete sentences Auscultation: clear to auscultation bilaterally Cardio Rate: regular rate Rhythm: regular rhythm Heart sounds: Normal, physiologic split S2 sound present Peripheral pulses: radial pulses present and posterior tibial pulses present GI Inspection: No distended, No Abdominal panniculus present and Yes obesity Palpation (GI): Soft to palpation, nontender, no guarding, not rigid and No hepatosplenomegaly present Percussion: Yes normal to percussion Auscultation: normal bowel sounds Rectal Exam - Female: deferred Skin General skin exam: no rashes or lesions noted, turgor normal, skin not dry, no jaundice, No spider nevi and no striae Rashes: no rashes Nails: normal Neuro General: oriented to person, oriented to place and oriented to time Cranial nerves: Yes Equal, round and reactive pupils present and Yes Normal hearing present Speech: No Abnormal speech present Extrem General: Yes normal to inspection, No clubbing, No cyanosis and No edema Psych Appearance: grossly normal and well kempt Mental Status: mental status grossly normal Speech and movement: Normal speech and movement present Affect: normal affect Attitude: cooperative Thought process: Normal thought process present and not confabulating Thought content: Normal thought content present Insight: Good insight present (Psych) Judgement: Good judgement present (Psych) Assessment & Plan Assessment & Plan (1) Tubular adenoma of colon: Comment: 2022 scope at [facility] Code(s): D12.6 - Benign neoplasm of colon, unspecified Category: Medical (2) Parkinson's disease without dyskinesia: Code(s): G20.A1 - Parkinson's disease without dyskinesia, without mention of fluctuations Category: Medical Plan She had a colonoscopy in 2022 at [facility] and they recommended a 3 year repeat. However, the information is not available to me to suggest why she has a shortened interval. I do not know the size of the sessile TA removed in 2021 but pathology showed it to be a normal tubular adenoma with no dysplasia or other unusual characteristics. The colonoscopy in 2022 was completely negative. - Contact insurance about coverage for [employer]. - Long COVID resulted in significant weight loss. - Parkinson?s Disease diagnosed after undergoing neurological evaluation for tremors. Bowel or upper GI problems: She at times suffers CIC helped with magnesium, no upper GI problems. Cardiac or respiratory problems: No Problems with anesthesia or sedation: No Infectious disease problems: No Family history: No Orders: Referrals GI Procedure Notification D12.6 - Benign neoplasm of colon, unspecified Medications: New sodium,potassium,mag sulfates 17.5-3.13-1.6 gram (Suprep Bowel Prep Kit) 480 mL orally; FOR COLONOSCOPY PREP 354 mL 0RF bisacodyl (Dulcolax (bisacodyl)) 10 mg (2 x 5 mg) PO BEDTIME 4 tabs 0RF 2 days Coding Level of Care Code New Pt Level 3 (71040) Diagnoses Tubular adenoma of colon D12.6 Parkinson's disease without dyskinesia G20.A1
== END 2025-10-04 14:01 | disposition home or self-care (01) ==
LOC: HO.HGI 12:48
PROVIDERS: PCP Family Medicine; Visit Provider Nurse Practitioner
DX: D12.6 Benign neoplasm of colon, unspecified (principal); G20.A1 Parkinson's disease without dyskinesia, without mention of fluctuations
CPT/HCPCS: 99203

== ENCOUNTER → 2025-10-04 12:47 | Outpatient (BNVA) | payer MEDICARE, SELFPAY | PROVIDERS: PCP Family Medicine; Visit Provider Nurse Practitioner | DX: R63.4 Abnormal weight loss (principal); G20.A1 Parkinson's disease without dyskinesia, without mention of fluctuations; Z86.0101 Personal history of adenomatous and serrated colon polyps | CPT/HCPCS: 99202 ==

== ENCOUNTER 2025-10-10 13:38 | Outpatient (AMB) | payer MEDICARE, SELFPAY ==
[2025-10-10 13:45] VITALS: BMI 23.6
--- NOTE | 2025-10-10 13:45 | A.OFFVIS_ITS ---
Vital Signs 10/10/25 13:45 Height 5 ft 6 in Weight 146 lb BMI 23.6 Intake Visit Reasons: f/u xrays right foot neuroma Intake Note: Angelika is a 70 year old female who presents today for a follow up visit of right foot neuroma. At her last visit she was advised to continue using metatarsal pads and consider shoe modifications/inserts to alleviate foot discomfort, as well as to Monitor peripheral edema, wear compression stockings, and consider adjusting amlodipine dosage as per PCP if swelling persists and to continue at home exercises. Xrays were also ordered. Today patient reports she is doing well with no further concerns at this time. Allergies oxycodone (From Percocet) Allergy (Mild, Verified 10/04/25 13:11) leaves her juan carloseugeniosubhash HPI Comments Details: The patient is a 70-year-old female presenting for a follow up of right foot metatarsalgia associated with a neuroma. The patient reports that the pain has improved since adjusting the use of the metatarsal pads in her shoes, which she finds effective. The pain is described as mild and occurs primarily when walking. She states she no longer walks barefoot. She denies any recent pedal injuries. Denies any other pedal concerns. [facility] Medical History (Updated 10/04/25 @ 13:50 by AGUSTIN Sloan) Osteopenia H/O echocardiogram Fracture, lumbar vertebra, compression Adult general medical exam Laboratory exam ordered as part of routine general medical examination Parkinsonism Immunization counseling Lyme disease Breast cancer screening by mammogram Screening for cervical cancer Screening for colon cancer Screening for osteoporosis Boswell's neuroma of right foot Metatarsalgia, right foot Parkinson's disease without dyskinesia Back pain Neck pain Hyperreflexia Weakness Spinal compression fracture 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 HTN (hypertension) Surgical History (Updated 10/04/25 @ 13:51 by AGUSTIN Sloan) H/O eye surgery H/O colonoscopy H/O dilation and curettage Hx of tonsillectomy Family History Mother CHF (congestive heart failure) Dementia Type 2 diabetes mellitus Father Heart attack Prostate cancer Sister Pancreatic cancer Brother Prostate cancer Social History Household Members: Spouse Housing: House Do you presently have visiting nurse or other home services: No Alcohol intake: current Comment: rare Patient Tobacco Use Status: Never used Tobacco e-Cigarette/Vaping Use: Never Used Advance Directives Date on File: 07/19/21 service: No Current occupational status: employed 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 All systems reviewed & are unremarkable except as noted in HPI and below Physical Exam Vital Signs: BMI result Body Mass Index 23.6 Extrem Other: B/L LE Focused Physical Exam: Derm: No open lesions, abrasions, or wounds noted. No clinical signs of infection. Mild hyperpigmentation noted to legs. No ecchymosis noted. No maceration noted. No palpable mass noted. Vasc: DP pulses palpable and PT pulses mildly palpable. CFT < 3 secs. Temp gradient warm to warm. Pedal hair absent. No varicosities noted. Mild edema noted to lower extremities. Neuro: Protective sensations grossly intact except to right 4th and 5th digits. MSK: No pain on palpation to the forefoot plantarally or dorsally. ROM of the forefoot, hindfoot, and ankle WNL. Negative squeeze test. Negative malik's sign. No crepitus noted. Nonantalgic gait unassisted noted. Results Reviewed Results Reviewed: Podiatry Read of Right foot xrays (09/21/25): Joint space narrowing of 1st MPJ. Hammertoe deformities noted. Os peroneum noted. No acute fractures or dislocations noted. Right foot xrays (09/21/25): FINDINGS: Three views of the right foot are submitted. Osseous mineralization is normal. There is no fracture or dislocation. The joint spaces are preserved. The soft tissues are unremarkable. IMPRESSION: Unremarkable examination of the right foot. Assessment & Plan Assessment & Plan (1) Right foot pain: Code(s): M79.671 - Pain in right foot Category: Medical (2) Metatarsalgia, right foot: Code(s): M77.41 - Metatarsalgia, right foot Category: Medical (3) Boswell's neuroma of right foot: Code(s): G57.61 - Lesion of plantar nerve, right lower limb Category: Medical Plan Patient was informed and verbally consented to the use of an ambient scribe for clinic note documentation during this visit. I discussed xray findings with the patient. We talked about the neuroma, which is not currently causing significant displacement of bones. I advised continuing with metatarsal pads and supportive shoe gear. If pain increases, we may consider a Medrol Dosepak or an injection. I emphasized the importance of monitoring symptoms and contacting us if the pain worsens. - Continue using metatarsal pads to alleviate foot pain. - Monitor for increased pain; consider Medrol Dosepak or injection if pain worsens. - Avoid barefoot walking and wear supportive shoe gear. - Continue at home exercises. RTC as needed. Coding Level of Care Code Est Pt Level 3 (71325) Diagnoses Right foot pain M79.671 Metatarsalgia, right foot M77.41 Boswell's neuroma of right foot G57.61 Time Spent (min) 23
== END 2025-10-10 14:10 | disposition home or self-care (01) ==
LOC: HO.HPODS 13:38
PROVIDERS: PCP Family Medicine; Visit Provider Student in an Organized Health Care Education/Training Program
DX: M79.671 Pain in right foot (principal); M77.41 Metatarsalgia, right foot; G57.61 Lesion of plantar nerve, right lower limb
CPT/HCPCS: 99213

== ENCOUNTER → 2025-10-10 13:38 | Outpatient (BNVA) | payer MEDICARE, SELFPAY | PROVIDERS: PCP Family Medicine; Visit Provider Student in an Organized Health Care Education/Training Program | DX: M77.41 Metatarsalgia, right foot (principal); G57.61 Lesion of plantar nerve, right lower limb | CPT/HCPCS: 99212 ==

== ENCOUNTER 2025-10-18 06:09 | Outpatient (REF) | payer MEDICARE, SELFPAY ==
[2025-10-18 06:26] LABS: MANUAL DIFF FLAG NO
[2025-10-18 07:44] LABS: Hematocrit 45.8 % (37.0-47.0); Hemoglobin 14.4 g/dl (12.0-16.0); Imm Gran Abs Auto 0.02 X10*3/uL (0.00-0.03); Imm Gran Pct Auto 0.3 % (0.0-0.4); Lymphocytes Absolute Auto 1.9 X10*3/uL (1.2-4.9); Mean Corpuscular HGB Conc 31.4 g/dl (31.0-35.0); Mean Corpuscular Hemoglobin 29.4 pg (27.0-33.0); Mean Corpuscular Volume 93.5 fL (80.0-98.0); NRBC Abs Auto 0.000 X10*3/uL (0.0-0.012); NRBC Pct Auto 0.0 /100WBC (0.0-0.2); Platelet Count 263 X10*3/uL (160-400); Red Blood Count 4.90 X10*6/uL (4.20-5.50); White Blood Count 6.6 X10*3/uL (4.8-10.8)
[2025-10-18 07:52] LABS: Alanine Aminotransferase 6 U/L (0-31); Albumin Level 4.3 g/dL (3.5-5.0); Alkaline Phosphatase 72 U/L (39-117); Anion Gap 10 (12-20); Aspartate Amino Transferase 24 U/L (5-31); Blood Urea Nitrogen 19 mg/dL (9-16); Calcium 9.4 mg/dL (8.4-10.2); Carbon Dioxide 31 mmol/L (22-29); Chloride 104 mmol/L (96-108); Cholesterol 198 mg/dL (<200); Estimated Glomerular Filt Rate > 60; HDL Cholesterol 58 mg/dL (>40); Potassium 4.0 mmol/L (3.3-5.1); Sodium 141 mmol/L (135-145); Total Protein 6.7 g/dL (6.5-8.0); Triglycerides 69 mg/dL (<150)
[2025-10-18 08:21] LABS: Folate 11.5 ng/mL (> or = 4.0); Vitamin B12 1092 pg/mL (200-900)
== END 2025-10-18 06:10 | disposition home or self-care (01) ==
LOC: HO.LAB 06:09
PROVIDERS: PCP Family Medicine; Visit Provider Family Medicine
DX: Z00.00 Encounter for general adult medical examination without abnormal findings (principal); Z13.6 Encounter for screening for cardiovascular disorders; E53.8 Deficiency of other specified B group vitamins; E55.9 Vitamin D deficiency, unspecified
CPT/HCPCS: 36415; 80053; 80061; 82306; 82607; 82746; 84443; 85025

== ENCOUNTER 2025-10-24 13:50 | Outpatient (AMB) | payer MEDICARE, SELFPAY ==
--- NOTE | 2025-10-24 13:57 | MHC.PC.OV ---
Vital Signs 10/24/25 14:02 10/24/25 14:24 Height 5 ft 6 in Weight 149 lb 2 oz BMI 24.1 BP 140/67 H 128/66 Blood Pressure Location Rt brachial Lt brachial Position Sitting Sitting Respiration 13 Pulse 86 Pulse Source Pulse Oximeter Temp 96.4 F L Temp Source Temporal Artery Scan Pulse Oximetry (%) 100 Oxygen Delivery Method Room Air Intake Visit Reasons: f/u HTN Intake Note: Follow up on htn and review labs. Veterinary Manager Required: No Allergies oxycodone (From Percocet) Allergy (Mild, Verified 10/24/25 13:58) leaves her ciarra rangel Tobacco use date assessed: 10/24/25 Fall risk assessment: No Falls in past year Last assessed Fall Risk: 10/24/25 Dental Screening Dental Screen Date: 10/24/25 Did you have a dental visit in the last 12 months?: Yes Did you have a dental problem in the last 6 months where you did not have access to dental care?: No Was dental information given to patient?: Patient has dentist HPI f/u HTN HPI Details 70 y/o female presents to f.u HTN. BP today 128/66, 86p. She is on amlodipine 5mg daily. Labs drawn 10/18/25. Reviewed labs with pt. Triglycerides 69. TC 198. LDL 127. HDL 58. HPI Comments History of Present Illness Details Documentation assistance for Paras Alicea MD, was provided by Miguel Clay,? Senior Network Security Engineer on 10/24/2025 at 2:46 PM EST. I, Dr. Alicea, have read, observed, and verified documentation. ?? 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 HTN (hypertension) Surgical History (Updated 10/04/25 @ 13:51 by AGUSTIN Sloan) H/O eye surgery H/O colonoscopy H/O dilation and curettage Hx of tonsillectomy Family History Mother CHF (congestive heart failure) Dementia Type 2 diabetes mellitus Father Heart attack Prostate cancer Sister Pancreatic cancer Brother Prostate cancer Social History Household Members: Spouse Housing: House Do you presently have visiting nurse or other home services: No Alcohol intake: current Comment: rare Patient Tobacco Use Status: Never used Tobacco e-Cigarette/Vaping Use: Never Used Second Hand Smoke Exposure: No Advance Directives Date on File: 07/19/21 service: No Current occupational status: employed 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 1. Little interest or pleasure in doing things: not at all 2. Feeling down, depressed, or hopeless: not at all 3. Trouble falling or staying asleep, or sleeping too much: not at all 4. Feeling tired or having little energy: not at all 5. Poor appetite or overeating: not at all 6. Feeling bad about yourself - or that you are a failure or have let yourself or your family down: not at all 7. Trouble concentrating on things, such as reading the newspaper or watching television: not at all 8. Moving or speaking so slowly that other people could have noticed. Or the opposite - being so fidgety or restless that you have been moving around a lot more than usual: not at all 9. Thoughts that you would be better off or of hurting yourself in some way: not at all Total score: 0 Depression Screening Interpretation: Negative Depression Screening Done: Yes 75799 - PHQ-9 Billing: Yes Source: Developed by Drs. Melvin Benites, Ansley Howe, Brice Ward and colleagues, with an educational naman from [employer]. Thrive Questionnaire Date Thrive assessed: 10/24/25 I am a: Patient What is your living situation today?: I have a steady place to live Within the past 12 months, did the food you bought not last and you didn't have the money to get more?: Never true Within the past 12 months, did you worry whether your food would run out before you got money to buy more?: Never true Do you have trouble paying for medicines?: No Do you have trouble getting transportation to medical appointments?: No Do you have trouble paying your heating and electricity bill?: No Do you have trouble taking care of your child, family member or friend?: No Do you have trouble with day-to-day activities such as bathing, preparing meals, shopping, managing finances, etc.?: No Are you currently unemployed and looking for a job?: No Are you interested in more education?: No Please select the resources that you would like help with: None Currently or been in a relationship where the following occur: No concerns reported THRIVE Score: 0 FIONA-7 AMB Questionnaire FIONA-7 Date FIONA - 7 assessed: 10/24/25 Feeling nervous, anxious, or on edge: 0 = Not at all Not being able to stop or control worryin = Not at all Worrying too much about different things: 0 = Not at all Trouble relaxin = Not at all Being so restless that it is hard to sit still: 0 = Not at all Becoming easily annoyed or irritable: 0 = Not at all Feeling afraid as if something awful might happen: 0 = Not at all Total FIONA-7 score (0-4 normal; 5-9 mild; 10-14 moderate; 15-21 severe): 0 Source: Developed by Drs. Melvin Benites, Ansley Howe, Brice Ward and colleagues, with an educational naman from [employer]. FIONA-7 Assessment Billing FIONA-7 Assessment Tool: FIONA-7 Assessment 58247 Review of Systems Const Denies chills, Denies fatigue, Denies fever(s), Denies headache(s) and Denies weakness ENT Denies dizziness and Denies headache(s) Card Denies dyspnea Resp Denies cough, Denies dyspnea, Denies wheezing and Denies other (shortness of breath) Musc Denies numbness and Denies tingling Neuro Denies dizziness, Denies headache(s), Denies numbness, Denies tingling and Denies weakness Psych Denies anxiety and Denies depression Endo Denies fatigue Aller/Immun Denies wheezing Physical exam (Primary Care) Vital Signs: Last Vital Signs Temp 96.4 F L 10/24/25 14:02 Pulse 86 10/24/25 14:02 Resp 13 10/24/25 14:02 BP 128/66 10/24/25 14:24 Pulse Ox 100 10/24/25 14:02 Oxygen Delivery Method Room Air 10/24/25 14:02 BMI result Body Mass Index 24.1 Tobacco/Smoking Status: Tobacco use Status Tobacco use date assessed 10/24/25 10/24/25 14:00 Patient Tobacco Use Status Never used Tobacco 10/24/25 14:00 e-Cigarette/Vaping Use Never Used 10/24/25 14:00 PHQ-9: PHQ-9 Score PHQ-9: Total score 0 10/24/25 14:46 Depression Screening Interpretation: Negative Thrive Assessment: Date of Thrive Assessment Date Thrive assessed 10/24/25 10/24/25 14:00 Currently or been in a relationship where the following occur: No concerns reported Const General: well developed; No acute distress Nutritional Appearance: well nourished Orientation/consciousness: patient oriented x3 HENMT Head: Yes normocephalic and Yes atraumatic Eyes General: appearance normal, both eyes and all related structures Pupils: Equal, round and reactive pupils present EOM: EOMs intact bilaterally Resp Effort & Inspection: normal respiratory effort Auscultation: clear to auscultation bilaterally Cardio Rate: regular rate Rhythm: regular rhythm Heart sounds: S1 normal heart sound present, S2 normal heart sound present, no gallops, no murmurs and no rubs Neuro General: patient oriented x3 and gait normal Cranial nerves: Yes Equal, round and reactive pupils present Psych Affect: normal affect Coding Level of Care Code Est Pt Level 3 (92667) Diagnoses HTN (hypertension) I10 Hypercholesteremia E78.00 Additional Codes FIONA-7 Assessment Billing - FIONA-7 Assessment Tool: FIONA-7 Assessment 98796 ([id number]) PHQ-9 - 68486 - PHQ-9 Billing: Yes ([id number]) Assessment & Plan Assessment & Plan (1) HTN (hypertension): Code(s): I10 - Essential (primary) hypertension Category: Medical Plan: BP is well controlled Cont current medication (2) Hypercholesteremia: Code(s): E78.00 - Pure hypercholesterolemia, unspecified Category: Medical Plan: LDL cholesterol still above goal of less than 100 Continue working on diet low in saturated fats and cholesterol Could try red yeast rice Will continue monitor
[2025-10-24 14:02] VITALS: BP 140/67; PULSE 86; RESP 13; TEMP 35.8; O2SAT 100; BMI 24.1
[2025-10-24 14:24] VITALS: BP 128/66
== END 2025-10-24 15:19 | disposition home or self-care (01) ==
LOC: HO.HMCFM 13:52
PROVIDERS: PCP Family Medicine; Visit Provider Family Medicine
DX: I10 Essential (primary) hypertension (principal); E78.00 Pure hypercholesterolemia, unspecified

== ENCOUNTER 2025-10-24 13:50 | Outpatient (REF) | payer MEDICARE, SELFPAY ==
[2025-10-24 18:47] LABS: Appearance Urine Clear; Glucose Urine UA Negative (Negative); PH 8.0 (5.0-9.0); Specific Gravity - Urine 1.015 (1.005-1.025)
[2025-10-24 18:52] LABS: Microalbum/Creatinine Ratio Ur 10.5 ug/mg cr (<30)
== END 2025-10-24 13:51 | disposition home or self-care (01) ==
LOC: HO.LNP 13:50
PROVIDERS: PCP Family Medicine; Visit Provider Family Medicine
DX: Z00.00 Encounter for general adult medical examination without abnormal findings (principal); I10 Essential (primary) hypertension; E78.00 Pure hypercholesterolemia, unspecified
CPT/HCPCS: 81003; 82043; 82570; 96127; 99212

== ENCOUNTER 2025-11-16 12:49 | Outpatient (AMB) | payer BC, SELFPAY ==
[2025-11-16 12:54] VITALS: BP 120/72; PULSE 80; O2SAT 99; BMI 23.9
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
== END 2025-11-16 13:24 | disposition home or self-care (01) ==
LOC: HO.HSMS 12:50
PROVIDERS: PCP Family Medicine; Visit Provider Psychiatry & Neurology Neurology
DX: G20.C Parkinsonism, unspecified (principal)
CPT/HCPCS: 99214